=== PATIENT | male | born 1950 | race Caucasian/White ===

== ENCOUNTER → 2020-08-23 | Outpatient (CLI) | payer MEDICARE, OTHER ==
--- NOTE | 2020-09-27 17:58 | EM ---
EVENT MONITOR DATE OF SERVICE: The patient was monitored between the 23 of August and the September,. The rhythm strip revealed sinus mechanism with normal conduction. Single PVCs and PACs were noted. No atrial fibrillation was noted. There was a 5 complex ventricular tachycardia noted on August 26 that was asymptomatic. CONCLUSION: No atrial fibrillation was noted. MMODL / IJN: [id number] /
== END | disposition home or self-care (01) ==
LOC: RADECHMAIN 12:06
PROVIDERS: ATTEND Internal Medicine
DX: I49.1 Atrial premature depolarization (principal); I49.3 Ventricular premature depolarization; I47.2 Ventricular tachycardia
CPT/HCPCS: 93270

== ENCOUNTER → 2021-08-21 | Outpatient (CLI) | payer MEDICARE, OTHER ==
[2021-08-21 10:53] LABS: African American GFR (CKD) >90 (>60 ml/min/1.73 sqM); Blood Urea Nitrogen 18 mg/dL (9-20); Non-African American GFR(CKD) >90 (>60 ml/min/1.73 sqM)
--- NOTE | 2021-08-21 19:15 | CT ---
EXAMINATION TYPE: CT urogram wo/w con DATE OF EXAM: 08/21/2021 INDICATION: Gross hematuria. CT DLP: 4288 mGy.cm Automated Exposure Control for Dose Reduction was Utilized. TECHNIQUE AND CONTRAST: CT scan of the abdomen and pelvis is performed without and with IV Contrast, as per CT urogram protoc ol. The patient injected with 100ml mL of Isovue 300. 3-D reconstruction images were generated on an independent workstation and reviewed. COMPARISON: None available FINDINGS: Few left renal nonobstructing calculi measuring up to 4 mm at the lower pole. No other definite radio dense urinary calculi. No hydroureter or hydronephrosis. Millimetric cyst is seen at the midpole of t he left kidney, otherwise unremarkable kidneys. No definite filling defect seen within the renal alexia ecting system or the opacified portion of the ureters. Mild nonspecific wall thickening of the midportion of the left ureter. No gross ureteric lesion other asif. Prostatic concretion. Slightly heterogeneous prostate, please correlate with PSA level. Unremar kable seminal vesicles. Mild wall thickening of the urinary bladder, nonspecific. No gross urinary bl adder lesion. Unremarkable liver, gallbladder, spleen, pancreas and adrenals. Extensive arterial atherosclerotic ca lcifications with infrarenal abdominal aortic ectasia measuring up to 2.9 cm. Previously right aortoi liac stent, suboptimally assessed by this CT scan. Unremarkable nondistended stomach, duodenum and sm all bowel. No gross colonic mass. No suspicious lymphadenopathy or sizable ascites. Fat-containing umbilical hernia. Left atrial dilata tion. Coronary arterial atherosclerotic calcifications. Grossly unremarkable lung bases. Bilateral L5 pars break with grade 1 anterolisthesis of L5 over S1. Marked degenerative changes of the lower lumb ar spine. No gross aggressive bone lesion. IMPRESSION: Few left nonobstructing renal calculi. No gross renal, ureteric or urinary bladder lesion. Subtle uri nary tract findings and other incidental findings as described above.
== END | disposition home or self-care (01) ==
LOC: RADCTMAIN 10:08
PROVIDERS: ATTEND Internal Medicine
DX: N20.0 Calculus of kidney (principal)
CPT/HCPCS: 82565; 84520; 74178; 36415; 74400; Q9967

== ENCOUNTER → 2021-12-08 | Outpatient (CLI) | payer MEDICARE, OTHER ==
--- NOTE | 2021-12-09 04:08 | MR ---
EXAMINATION TYPE: MR lumbar spine wo/w con DATE OF EXAM: 12/08/2021 COMPARISON: None HISTORY: Lower back pain, radiates into both hips and right leg. CONTRAST: Standard multiplanar, multisequence MRI departmental protocol images were obtained without contrast a nd with 9 mL intravenous Gadavist gadolinium contrast. There is a first-degree L5-S1 spondylolisthesis. There is degenerative disc space narrowing throughou t the lumbar spine and more severe at L4-5 and L5-S1. There is small posterior disc herniation at L2- 3. The lumbar nerve roots appear intact. There is bilateral neural foraminal narrowing at L3-4 L4-5 d ue to facet arthropathy and disc space narrowing. There are similar changes also at L5-S1. There is n o lumbar paraspinal mass. No compression fracture. No focal bone destruction. No pathologic enhanceme nt. IMPRESSION: First-degree L5-S1 spondylolisthesis. Multilevel spondylotic changes. Multilevel neural foraminal fabio rowing. No significant spinal stenosis.
== END | disposition home or self-care (01) ==
LOC: RADMRIMAIN 21:45
PROVIDERS: ATTEND Physical Medicine & Rehabilitation
DX: M43.17 Spondylolisthesis, lumbosacral region (principal); M48.061 Spinal stenosis, lumbar region without neurogenic claudication; M47.26 Other spondylosis with radiculopathy, lumbar region
CPT/HCPCS: 72158; A9585

== ENCOUNTER → 2022-08-27 | Outpatient (CLI) | payer MEDICARE, OTHER ==
[2022-08-27 15:06] LABS: African American GFR (CKD) >90 (>60 ml/min/1.73 sqM); Blood Urea Nitrogen 16 mg/dL (9-20); Non-African American GFR(CKD) >90 (>60 ml/min/1.73 sqM)
--- NOTE | 2022-08-28 13:32 | CT ---
EXAMINATION TYPE: CT abdomen pelvis w con CT DLP: 1170.50 mGycm, Automated exposure control for dose reduction was used. DATE OF EXAM: 08/27/2022 4:29 PM COMPARISON: 08/21/2021, MRI 12/08/2021 CLINICAL INDICATION:Male, 71 years old with history of R10.12; mid to upper abdominal pain TECHNIQUE: Axial CT of the abdomen and pelvis. Sagittal and coronal reformats were created on a [employer] workstation. Contrast used:100 mL of Isovue 300 with IV Contrast, Oral contrast used: with Oral Contrast FINDINGS: LOWER CHEST: Unremarkable ABDOMEN LIVER: Unremarkable GALLBLADDER AND BILE DUCTS: Unremarkable. PANCREAS: Unremarkable. SPLEEN: Unremarkable. ADRENAL GLANDS: Unremarkable. KIDNEYS AND URETERS: No obstructive uropathy. Nonobstructing left renal calculi measuring up to 5 mm. No right renal calculi visualized. PELVIS BLADDER: Unremarkable REPRODUCTIVE: Unremarkable. ABDOMEN & PELVIS STOMACH AND BOWEL: No evidence of bowel obstruction. Large amount stool within the right colon. PERITONEUM/RETROPERITONEUM: No evidence of pneumoperitoneum or free fluid. VASCULATURE: No evidence of aortic aneurysm. Scattered atherosclerosis of the arterial vasculature. R ight external iliac stent which is patent. MUSCULOSKELETAL: No acute osseous abnormalities, multilevel disc degeneration changes of the spine wi th grade 2 anterolisthesis of L5 on S1. There is at least moderate to severe neural foraminal stenosi s at L4-L5 and L5-S1 secondary to facet joint uncovertebral joint arthropathy. LYMPH NODES: No gross evidence for lymphadenopathy. SOFT TISSUE/ABDOMINAL WALL: Left fat-containing inguinal hernia. Fat-containing umbilical hernia. A l arge stool burden within the right colon. IMPRESSION: 1. No evidence for acute abdominal process to explain the patient's pain. There is a large stool bur den within the upper abdomen right colon correlate for fecal stasis. No evidence for pancreatitis or obstructive uropathy. 2. Nonobstructing left renal calculi. 3. The right external iliac stent graft. 4. Moderate to severe bilateral L4-L5 and L5-S1 neural foraminal stenosis secondary to degeneration changes. Stable from at least 08/21/2021. 5. Grade 2 anterolisthesis of L5 on S1. Stable from at least 08/21/2021.
== END | disposition home or self-care (01) ==
LOC: RADCTMAIN 14:24
PROVIDERS: ATTEND Internal Medicine
DX: N20.0 Calculus of kidney (principal); M43.17 Spondylolisthesis, lumbosacral region; M99.73 Connective tissue and disc stenosis of intervertebral foramina of lumbar region; M47.816 Spondylosis without myelopathy or radiculopathy, lumbar region; R10.12 Left upper quadrant pain; Z95.828 Presence of other vascular implants and grafts
CPT/HCPCS: 82565; 84520; 74177; 36415; Q9967

== ENCOUNTER 2022-10-26 11:18 | Day surgery (SDC) | payer MEDICARE, OTHER ==
[2022-10-24 11:50] VITALS: BMI 27.8
[2022-10-26 11:46] VITALS: RESP 16; TEMP 97.6
[2022-10-26] MEDS ORDERED: LACTATED RINGERS 1,000 ML IV ONE (11:51)
[2022-10-26] MEDS ORDERED: PROPOFOL 10 MG/ML 20 ML VIAL IV ONE (12:04)
--- NOTE | 2022-10-26 13:23 | P.PCN ---
Date of Procedure: 10/26/22 Procedure(s) Performed: BRIEF HISTORY: Patient is a 71-year-old pleasant white male scheduled for an elective colonoscopy as a part of screening for colon cancer. PROCEDURE PERFORMED: Colonoscopy with snare polypectomy. PREOPERATIVE DIAGNOSIS: Screening for colon cancer. IV sedation per Anesthesia. PROCEDURE: After informed consent was obtained, the patient, was brought into the endoscopy unit. IV sedation was administered by Anesthesia under continuous monitoring. Digital rectal examination was normal. Initially the Olympus CF-160 flexible video colonoscope was then inserted in the rectum, gradually advanced into the cecum without any difficulty. Careful examination was performed as the scope was gradually being withdrawn. Ileocecal valve and the appendiceal orifice were visualized and appeared normal. Prep was excellent. Mucosa of the cecum, ascending colon, transverse colon, descending colon, sigmoid colon, and rectum appeared normal. The proximal rectum there was a 5 limited polyp that was removed by snare polypectomy. Scattered sigmoid diverticulosis. Retroflexion was performed in the rectum and no lesions were seen. The patient tolerated the procedure well. IMPRESSION: 5 mm proximal rectal polyp status post polypectomy Scattered sigmoid diverticulosis RECOMMENDATIONS: Findings of this examination were discussed with the patient as well as his family.. He was advised to follow with the biopsy results. If the biopsy results adenoma he can have a repeat colonoscopy in 5 years.
[2022-10-26 13:32] VITALS: PULSE 41
[2022-10-26 13:46] VITALS: BP 148/58
== END 2022-10-26 14:04 | disposition home or self-care (01) ==
LOC: ORWHC2ENDO 11:18
PROVIDERS: ATTEND Internal Medicine Gastroenterology
DX: Z12.11 Encounter for screening for malignant neoplasm of colon (principal); D12.8 Benign neoplasm of rectum; K57.30 Diverticulosis of large intestine without perforation or abscess without bleeding; I25.10 Atherosclerotic heart disease of native coronary artery without angina pectoris; I48.91 Unspecified atrial fibrillation; I10 Essential (primary) hypertension; E78.5 Hyperlipidemia, unspecified; E03.9 Hypothyroidism, unspecified; N42.9 Disorder of prostate, unspecified; Z90.49 Acquired absence of other specified parts of digestive tract; Z79.01 Long term (current) use of anticoagulants; Z79.890 Hormone replacement therapy; Z79.899 Other long term (current) drug therapy; Z88.1 Allergy status to other antibiotic agents
CPT/HCPCS: 88305; 45385; J2704

== ENCOUNTER 2022-11-05 08:19 | Observation (INO) | payer MEDICARE, OTHER ==
[2022-11-05] MEDS ORDERED: ASPIRIN 81 MG PO STA (08:30)
[2022-11-05] MEDS ORDERED: NITROGLYCERIN SL TABS 0.4 MG TAB SUBLINGUAL STA (08:30)
--- NOTE | 2022-11-05 08:33 | ED ---
General Adult HPI - General Chief complaint: Chest Pain Stated complaint: chest pain Time Seen by Provider: 11/05/22 08:20 Source: patient Mode of arrival: ambulatory - History of Present Illness Initial comments: Dictation was produced using [employer] dictation software. please excuse any grammatical, word or spelling errors. Chief Complaint: 71-year-old male presents emergency department with chest pressure History of Present Illness: 71-year-old male presents to the emergency room with couple hours of chest pressure. He felt fine last night before he went to bed. Woke this morning had some pressure in his chest. Nonradiating. Not associated with nausea or diaphoresis. Patient has a history of bypass grafting. He has extensive family history of coronary artery disease. Patient has a history of hypertension and dyslipidemia. Denies any history of diabetes. He does have a history of fibrillation and is currently on anticoagulation medications. The ROS documented in this emergency department record has been reviewed and confirmed by me. Those systems with pertinent positive or negative responses have been documented in the HPI. All other systems are other negative and/or noncontributory. - Related Data Home Medications Medication Instructions Recorded Confirmed Acetaminophen [Tylenol Extra 500 mg PO HS 10/24/22 11/05/22 Strength] Ascorbic Acid [Vitamin C] 1,000 mg PO DAILY 10/24/22 11/05/22 Atorvastatin [Lipitor] 80 mg PO HS 10/24/22 11/05/22 Glucosamine Sulfate 1,000 mg PO HS 10/24/22 11/05/22 Levothyroxine Sodium [Synthroid] 200 mcg PO MOTUWETHFRSA 10/24/22 11/05/22 Multivit,Calc,Min/FA/K1/Lycop 1 tab PO HS 10/24/22 11/05/22 [One-A-Day Men's Complete Tab] Rivaroxaban [Xarelto] 20 mg PO HS 10/24/22 11/05/22 Tamsulosin [Flomax] 0.4 mg PO DAILY 10/24/22 11/05/22 amLODIPine [Norvasc] 10 mg PO HS 10/24/22 11/05/22 ramipriL 10 mg PO DAILY 10/24/22 11/05/22 Allergies Allergy/AdvReac Type Severity Reaction Status Date / Time ciprofloxacin [From Cipro] Allergy TROUBLE Verified 07/24/23 09:22 SWALLOWING Review of Systems ROS Statement: Those systems with pertinent positive or pertinent negative responses have been documented in the HPI. ROS Other: All systems not noted in ROS Statement are negative. Past Medical History Past Medical History: Atrial Fibrillation, Cancer, Hyperlipidemia, Hypertension, Prostate Disorder, Thyroid Disorder Additional Past Medical History / Comment(s): MELANOMA ON BACK History of Any Multi-Drug Resistant Organisms: None Reported Past Surgical History: Appendectomy, Coronary Bypass/CABG, Hernia Repair, Orthopedic Surgery, Tonsillectomy Additional Past Surgical History / Comment(s): QUAD BYPASS-2010 ,COLONOSCOPY X 3 ,MELANOMA REMOVED FROM BACK. ORIF RT WRIST ,TITANIUM PLATE LT SHOULDER. NUMEROUS HERNIA REPAIRS ,DALIA Past Anesthesia/Blood Transfusion Reactions: No Reported Reaction Past Psychological History: No Psychological Hx Reported Smoking Status: Former smoker Past Alcohol Use History: None Reported Past Drug Use History: None Reported - Past Family History Mother Family Medical History: No Reported History General Exam - General Exam Comments Initial Comments: PHYSICAL EXAM: General Impression: Alert and oriented x3, not in acute distress HEENT: Normocephalic atraumatic, extra-ocular movements intact, pupils equal and reactive to light bilaterally, mucous membranes moist. Cardiovascular: Heart regular rate and rhythm Chest: Able to complete full sentences, no retractions, no tachypnea Abdomen: abdomen soft, non-tender, non-distended, no organomegaly Musculoskeletal: Pulses present and equal in all extremities, no peripheral edema Motor: no focal deficits noted Neurological: CN II-XII grossly intact, no focal motor or sensory deficits noted Skin: Intact with no visualized rashes Psych: Normal affect and mood Course Vital Signs 11/05/22 08:20 Temperature 99.2 F Pulse Rate 65 Respiratory 18 Rate Blood Pressure 171/72 O2 Sat by Pulse 95 Oximetry EKG Findings - EKG Comments: EKG Findings:: My EKG interpretation: Ventricular rate 55, sinus bradycardia,. Interval to 11, QRS 104, QTC 400. No MA prolongation, no QTC prolongation, no ST or T-wave changes noted. Overall, this EKG is unremarkable Medical Decision Making - Medical Decision Making Was pt. sent in by a medical professional or institution (, PA, BANK VAULT ATTENDANT, urgent care, hospital, or long term...) When possible be specific @ -No Did you speak to anyone other than the patient for history (EMS, parent, family, police, friend...)? What history was obtained from this source @ -No Did you review nursing and triage notes (agree or disagree)? Why? @ -I reviewed and agree with nursing and triage notes Were old charts reviewed (outside hosp., previous admission, EMS record, old E KG, old radiological studies, urgent care reports/EKG's, long term records)? Report findings @ -No old charts were reviewed Differential Diagnosis (chest pain, altered mental status, abdominal pain women, abdominal pain men, vaginal bleeding, musculoskeletal, weakness, fever, dyspnea, syncope, headache, dizziness, GI bleed, back pain, seizure, CVA, palpatations, mental health)? @ -FDifferential Chest Pain: Stable Angina, Unstable Angina, STEMI, NSTEMI Aortic Dissection, Pneumothorax, Musculoskeletal, Esophageal Spasm GERD, Cholecystitis, Pancreatitis, Zoster, this is not meant to be an all-inclusive list. EKG interpreted by me (3pts min.). @ -As above X-rays interpreted by me (1pt min.). @ -Chest x-ray is unremarkable CT interpreted by me (1pt min.). @ -None done U/S interpreted by me (1pt. min.). @ -None done What testing was considered but not performed or refused? (CT, X-rays, U/S, labs)? Why? @ -None What meds were considered but not given or refused? Why? @ -None Did you discuss the management of the patient with other professionals (professionals i.e. , PA, BANK VAULT ATTENDANT, lab, RT, psych nurse, director of social services, final inspector balance wheel, teacher, air control/anti air warfare officer, case fitter)? Give summary @ -No Was smoking cessation discussed for >3mins.? @ -No Was critical care preformed (if so, how long)? @ -No Were there social determinants of health that impacted care today? How? (Homelessness, low income, unemployed, alcoholism, drug addiction, transportation, low edu. Level, literacy, decrease access to med. care, [facility], rehab)? @ -No Was there de-escalation of care discussed even if they declined (Discuss DNR or withdrawal of care, Hospice)? DNR status @ -No What co-morbidities impacted this encounter? (DM, HTN, Smoking, COPD, CAD, Cancer, CVA, ARF, Chemo, Hep., AIDS, mental health diagnosis, sleep apnea, morbid obesity)? @ -None Was patient admitted / discharged? Hospital course, mention meds given and route, prescriptions, significant lab abnormalities, going to OR and other pertinent info. @ -71-year-old male presents emergency department for atypical chest pain typical features. He is high risk due to his comorbidities and history of cardiac issues. Vital signs stable. EKG is unremarkable. Labs are unremarkabl e. Chest x-ray is negative. Patient needed observation for cardiac monitoring. Undiagnosed new problem with uncertain prognosis? @ -No Drug Therapy requiring intensive monitoring for toxicity (Heparin, Nitro, Insulin, Cardizem)? @ -No Were any procedures done? @ -No Diagnosis/symptom? Acute, or Chronic, or Acute on Chronic? Uncomplicated (without systemic symptoms) or Complicated (systemic symptoms)? @ 1. Chest pain Side effects of treatment? @ - No Exacerbation, Progression, or Severe Exacerbation? @ -No Poses a threat to life or bodily function? How? (Chest pain, USA, MS, pneumonia, PE, COPD, DKA, ARF, appy, cholecystitis, CVA, Diverticulitis, Homicidal, Suicidal, threat to staff... and all critical care pts) @ -yes - Lab Data Result diagrams: 11/05/22 09:03 11/05/22 09:03 Lab Results 11/05/22 11/05/22 11/05/22 Range/Units 09:03 09:03 09:03 WBC 8.6 (3.8-10.6) k/uL RBC 4.70 (4.30-5.90) m/uL Hgb 14.8 (13.0-17.5) gm/dL Hct 41.8 (39.0-53.0) % MCV 88.9 (80.0-100.0) fL MCH 31.4 (25.0-35.0) pg MCHC 35.4 (31.0-37.0) g/dL RDW 12.7 (11.5-15.5) % Plt Count 208 (150-450) k/uL MPV 7.7 Neutrophils % 74 % Lymphocytes % 16 % Monocytes % 6 % Eosinophils % 2 % Basophils % 0 % Neutrophils # 6.4 (1.3-7.7) k/uL Lymphocytes # 1.4 (1.0-4.8) k/uL Monocytes # 0.5 (0-1.0) k/uL Eosinophils # 0.1 (0-0.7) k/uL Basophils # 0.0 (0-0.2) k/uL PT 13.1 H (9.0-12.0) sec INR 1.3 H (<1.2) APTT 35.7 H (22.0-30.0) sec Sodium 137 (137-145) mmol/L Potassium 3.9 (3.5-5.1) mmol/L Chloride 105 (98-107) mmol/L Carbon Dioxide 24 (22-30) mmol/L Anion Gap 8 mmol/L BUN 16 (9-20) mg/dL Creatinine 0.63 L (0.66-1.25) mg/dL Est GFR (CKD-EPI)AfAm >90 (>60 ml/min/1.73 sqM) Est GFR (CKD-EPI)NonAf >90 (>60 ml/min/1.73 sqM) Glucose 99 (74-99) mg/dL Calcium 9.1 (8.4-10.2) mg/dL Magnesium 2.0 (1.6-2.3) mg/dL Total Bilirubin 1.1 (0.2-1.3) mg/dL AST 29 (17-59) U/L ALT 21 (4-49) U/L Alkaline Phosphatase 113 (38-126) U/L Troponin I (0.000-0.034) ng/mL Total Protein 6.8 (6.3-8.2) g/dL Albumin 3.8 (3.5-5.0) g/dL 11/05/22 Range/Units 09:03 WBC (3.8-10.6) k/uL RBC (4.30-5.90) m/uL Hgb (13.0-17.5) gm/dL Hct (39.0-53.0) % MCV (80.0-100.0) fL MCH (25.0-35.0) pg MCHC (31.0-37.0) g/dL RDW (11.5-15.5) % Plt Count (150-450) k/uL MPV Neutrophils % % Lymphocytes % % Monocytes % % Eosinophils % % Basophils % % Neutrophils # (1.3-7.7) k/uL Lymphocytes # (1.0-4.8) k/uL Monocytes # (0-1.0) k/uL Eosinophils # (0-0.7) k/uL Basophils # (0-0.2) k/uL PT (9.0-12.0) sec INR (<1.2) APTT (22.0-30.0) sec Sodium (137-145) mmol/L Potassium (3.5-5.1) mmol/L Chloride (98-107) mmol/L Carbon Dioxide (22-30) mmol/L Anion Gap mmol/L BUN (9-20) mg/dL Creatinine (0.66-1.25) mg/dL Est GFR (CKD-EPI)AfAm (>60 ml/min/1.73 sqM) Est GFR (CKD-EPI)NonAf (>60 ml/min/1.73 sqM) Glucose (74-99) mg/dL Calcium (8.4-10.2) mg/dL Magnesium (1.6-2.3) mg/dL Total Bilirubin (0.2-1.3) mg/dL AST (17-59) U/L ALT (4-49) U/L Alkaline Phosphatase (38-126) U/L Troponin I <0.012 (0.000-0.034) ng/mL Total Protein (6.3-8.2) g/dL Albumin (3.5-5.0) g/dL Disposition Clinical Impression: Chest pain Disposition: ADMITTED IP TO THIS HOSP Condition: Fair Referrals: Buddy Salas MD [Primary Care Provider] - 1-2 days Time of Disposition: 09:57
--- NOTE | 2022-11-05 09:10 | XR ---
EXAMINATION TYPE: XR chest 2V DATE OF EXAM: 11/05/2022 9:04 AM COMPARISON: None TECHNIQUE: XR chest 2V Frontal and lateral views of the chest. CLINICAL INDICATION:Male, 71 years old with history of Chest Pain; FINDINGS: Lungs/Pleura: There is flattening of the diaphragm with increased lucency of the lungs. No evidence o f pneumothorax, pleural effusion or focal consolidation. Pulmonary vascularity: Unremarkable. Heart/mediastinum: Cardiomediastinal silhouette is unremarkable. Musculoskeletal: Multiple level degenerative disc disease changes seen throughout the spine. Midline sternotomy wires are noted. Left shoulder prosthesis. No acute osseous abnormality. Other findings: Right axillary surgical clips. IMPRESSION: 1. No acute cardiopulmonary disease process. 2. COPD changes.
[2022-11-05 09:12] LABS: Basophils % (A) 0 %; Eosinophils # (A) 0.1 k/uL (0-0.7); Eosinophils % (A) 2 %; HCT 41.8 % (39.0-53.0); HGB 14.8 gm/dL (13.0-17.5); Lymphocytes # (A) 1.4 k/uL (1.0-4.8); Lymphocytes % (A) 16 %; MCH 31.4 pg (25.0-35.0); MCHC 35.4 g/dL (31.0-37.0); MCV 88.9 fL (80.0-100.0); Mean Platelet Volume 7.7; Monocytes # (A) 0.5 k/uL (0-1.0); Monocytes % (A) 6 %; Neutrophils # (A) 6.4 k/uL (1.3-7.7); Neutrophils % (A) 74 %; Platelet Count 208 k/uL (150-450); RDW 12.7 % (11.5-15.5); WBC 8.6 k/uL (3.8-10.6)
[2022-11-05 09:21] LABS: INR 1.3 (<1.2); Partial Thromboplastin Time 35.7 sec (22.0-30.0); Prothrombin Time 13.1 sec (9.0-12.0)
[2022-11-05 09:30] LABS: ALT 21 U/L (4-49); AST 29 U/L (17-59); African American GFR (CKD) >90 (>60 ml/min/1.73 sqM); Albumin 3.8 g/dL (3.5-5.0); Alkaline Phosphatase 113 U/L (38-126); Anion Gap 8 mmol/L; Blood Urea Nitrogen 16 mg/dL (9-20); Calcium 9.1 mg/dL (8.4-10.2); Carbon Dioxide 24 mmol/L (22-30); Chloride 105 mmol/L (98-107); Glucose 99 mg/dL (74-99); Non-African American GFR(CKD) >90 (>60 ml/min/1.73 sqM); Potassium 3.9 mmol/L (3.5-5.1); Sodium 137 mmol/L (137-145); Total Bilirubin 1.1 mg/dL (0.2-1.3); Total Protein 6.8 g/dL (6.3-8.2)
[2022-11-05] MEDS ORDERED: NITROGLYCERIN SL TABS 0.4 MG TAB SUBLINGUAL PRN (09:54)
[2022-11-05] MEDS: LEVOTHYROXINE 100 MCG TAB PO SCH (11:08)
--- NOTE | 2022-11-05 12:20 | P.CRDCN ---
History of Present Illness Consult date: 11/05/22 Consult reason: chest pain History of present illness: History of present illness: This is a 71-year-old male patient of Dr. Florencio Elizabeth with past medical history of coronary artery bypass graft 4 vessel done at [facility] in 2008 with MAGAÑA to LAD and diagonal, saphenous vein graft to PDA, saphenous vein graft to the obtuse marginal branch, paroxysmal atrial fibrillation on Xarelto, aortic valve stenosis, hypertension, dyslipidemia, moderate bilateral carotid stenosis, peripheral artery disease status post right iliac stenting, melanoma resected on his back. We have been asked to evaluate the patient for chest pain. Patient gives history that he started having midsternal chest pain while he was sleeping. He got up to go to the bathroom and this was when he noticed the chest discomfort. When he went to bed the evening before, he did not have any chest pain or discomfort. He states that he started lifting weights a couple weeks ago. Pain is worse with a deep breath but no change with any movement. He denies having any shortness of breath, no palpitations, no lightheadedness or dizziness, no lower extremity edema. He is normally very active and plays pickle ball with most recent pickle ball on Saturday. He did not express any chest discomfort at that time. He states he also obtains 20,000 steps per day. He quit smoking about 20 years ago. He last had a cardiac catheterization in 2010 or 2011 at [facility]. Patient is seen in the emergency center waiting for a bed on the observation unit. EKG sinus rhythm with no acute findings Chest x-ray: No acute process CBC within normal limits, INR 1.3. Elective lites normal. Creatinine 0.63. Magnesium 2.0. Liver function tests are normal. Troponin negative 1. Home cardiac medications: Amlodipine 10 mg at bedtime, atorvastatin 80 mg at bedtime, levothyroxine 200 g Saturday through Saturday, July 10 milligrams daily, Xarelto 20 mg at bedtime DALIA performed 04/2021 performed at [facility] in [facility] revealed normal LV systolic function, no evidence of left atrial appendage thrombus, no PFO, ASD or in chair atrial septal aneurysm. No pericardial effusion. Mild to moderate aortic regurgitation, trivial mitral regurgitation. Carotid ultrasound 03/06 performed in the office revealed 5079 percent stenosis bilaterally. Echocardiogram performed 02/20/2022 in the office revealed normal LV size, EF 65%, mild concentric left ventricular hypertrophy. Trileaflet aortic valve with moderate to severe aortic regurgitation and mild aortic stenosis. Mild mitral regurgitation, moderate tricuspid regurgitation, pulmonary artery systolic pressure 37 mmHg. Nuclear stress test 03/2021 completed in the office revealed above average exercise tolerance, negative stress test by EKG criteria, normal myocardial perfusion and function Review Of Systems: At the time of my evaluation: Constitutional: No fever, no chills. No weakness, fatigue or lethargy. EENT: No headache. No dizziness. Lungs: No shortness of breath, cough, no sputum production. No wheezing. Cardiovascular: No chest pain, no lower extremity edema. No palpitations. No paroxysmal nocturnal dyspnea. No orthopnea. No lightheadedness or dizziness. No syncopal episodes. Abdominal: No abdominal pain. No nausea, vomiting. No diarrhea. No constipation. No bloody or tarry stools. Musculoskeletal: No myalgias. No muscle weakness, no frequent falls. Integumentary: No wounds. No rash. No unusual bruising. Neurologic: No aphasia. No facial droop. No change in mentation. Physical examination: Gen: This is a 71-year-old male. He is resting on ER stretcher and appears to be comfortable and in no acute distress. VS: reviewed HEENT: Head is atraumatic, normocephalic. Pupils equal, round. Sclerae is anicteric. NECK: Supple. No JVD. . LUNGS: Clear to auscultation. No wheezes or rhonchi. No intercostal retractions. HEART: Regular rate and rhythm. Murmur right sternal border. ABDOMEN: Soft No tenderness. EXTREMITIES: No pedal edema. No calf tenderness. NEUROLOGICAL: Patient is awake, alert and oriented x3. Assessment: Chest pain most likely noncardiac History of coronary artery disease with previous four-vessel CABG Paroxysmal atrial fibrillation Aortic valve stenosis Hypertension Hyperlipidemia Moderate carotid stenosis Peripheral artery disease status post right iliac stenting Remote history of tobacco use Plan: Obtain repeat troponins Resume patient's home cardiac medications Obtain 2-D echocardiogram and Doppler study to assess cardiac structure and function If repeat troponins are within normal limits, patient will be scheduled for Cardiolite stress test tomorrow. Further recommendations to follow based upon clinical course. Thank you kindly for this consultation. Nurse practitioner note has been reviewed, I agree with documented findings and plan of care. Patient was seen and examined. Past Medical History Past Medical History: Atrial Fibrillation, Cancer, Hyperlipidemia, Hypertension, Prostate Disorder, Thyroid Disorder Additional Past Medical History / Comment(s): MELANOMA ON BACK History of Any Multi-Drug Resistant Organisms: None Reported Past Surgical History: Appendectomy, Coronary Bypass/CABG, Hernia Repair, Orthopedic Surgery, Tonsillectomy Additional Past Surgical History / Comment(s): QUAD BYPASS-2010 ,COLONOSCOPY X 3 ,MELANOMA REMOVED FROM BACK. ORIF RT WRIST ,TITANIUM PLATE LT SHOULDER. NUMEROUS HERNIA REPAIRS ,DALIA Past Anesthesia/Blood Transfusion Reactions: No Reported Reaction Past Psychological History: No Psychological Hx Reported Smoking Status: Former smoker Past Alcohol Use History: None Reported Past Drug Use History: None Reported - Past Family History Mother Family Medical History: No Reported History Medications and Allergies Home Medications Medication Instructions Recorded Confirmed Type Acetaminophen [Tylenol Extra 500 mg PO HS 10/24/22 11/05/22 History Strength] Ascorbic Acid [Vitamin C] 1,000 mg PO DAILY 10/24/22 11/05/22 History Atorvastatin [Lipitor] 80 mg PO HS 10/24/22 11/05/22 History Glucosamine Sulfate 1,000 mg PO HS 10/24/22 11/05/22 History Levothyroxine Sodium [Synthroid] 200 mcg PO MOTUWETHFRSA 10/24/22 11/05/22 History Multivit,Calc,Min/FA/K1/Lycop 1 tab PO HS 10/24/22 11/05/22 History [One-A-Day Men's Complete Tab] Rivaroxaban [Xarelto] 20 mg PO HS 10/24/22 11/05/22 History Tamsulosin [Flomax] 0.4 mg PO DAILY 10/24/22 11/05/22 History amLODIPine [Norvasc] 10 mg PO HS 10/24/22 11/05/22 History ramipriL 10 mg PO DAILY 10/24/22 11/05/22 History Allergies Allergy/AdvReac Type Severity Reaction Status Date / Time ciprofloxacin [From Cipro] Allergy TROUBLE Verified 11/05/22 09:22 SWALLOWING Physical Exam Vitals: Vital Signs Temp Pulse Resp BP Pulse Ox 11/05/22 08:20 99.2 F 65 18 171/72 95 Intake and Output 11/04/22 11/05/22 11/05/22 22:59 06:59 14:59 Other: Weight 89.358 kg Results 11/05/22 09:03 11/05/22 09:03 Cardiac Enzymes 11/05/22 11/05/22 Range/Units 09:03 09:03 AST 29 (17-59) U/L Troponin I <0.012 (0.000-0.034) ng/mL Coagulation 11/05/22 Range/Units 09:03 PT 13.1 H (9.0-12.0) sec APTT 35.7 H (22.0-30.0) sec CBC 11/05/22 Range/Units 09:03 WBC 8.6 (3.8-10.6) k/uL RBC 4.70 (4.30-5.90) m/uL Hgb 14.8 (13.0-17.5) gm/dL Hct 41.8 (39.0-53.0) % Plt Count 208 (150-450) k/uL Comprehensive Metabolic Panel 11/05/22 Range/Units 09:03 Sodium 137 (137-145) mmol/L Potassium 3.9 (3.5-5.1) mmol/L Chloride 105 (98-107) mmol/L Carbon Dioxide 24 (22-30) mmol/L BUN 16 (9-20) mg/dL Creatinine 0.63 L (0.66-1.25) mg/dL Glucose 99 (74-99) mg/dL Calcium 9.1 (8.4-10.2) mg/dL AST 29 (17-59) U/L ALT 21 (4-49) U/L Alkaline Phosphatase 113 (38-126) U/L Total Protein 6.8 (6.3-8.2) g/dL Albumin 3.8 (3.5-5.0) g/dL Current Medications Generic Name Dose Route Start Last Admin Trade Name Freq PRN Reason Stop Dose Admin Amlodipine Besylate 10 mg 11/05/22 21:00 Amlodipine 10 Mg Tab PO HS PIERCE Aspirin 325 mg 11/06/22 09:00 Aspirin 325 Mg Tab PO DAILY PIERCE Atorvastatin Calcium 80 mg 11/05/22 21:00 Atorvastatin 80 Mg Tab PO HS PIERCE Nitroglycerin 0.4 mg 11/05/22 09:54 Nitroglycerin Sl Tabs 0.4 Mg Tab SUBLINGUAL Q5M PRN Chest Pain Non-Formulary Medication 200 mcg 11/05/22 10:15 Levothyroxine Sodium [Synthroid] PO MOTUWETHFRSA [facility] Non-Formulary Medication 10 mg 11/06/22 09:00 Ramipril [Ramipril] PO DAILY [facility] Rivaroxaban 20 mg 11/05/22 21:00 Rivaroxaban 20 Mg Tab PO [facility] Protocol Tamsulosin HCl 0.4 mg 11/06/22 09:00 Tamsulosin 0.4 Mg Cap.Er.24h PO DAILY [facility] Intake and Output 11/04/22 11/05/22 11/05/22 22:59 06:59 14:59 Other: Weight 89.358 kg Patient Weight 11/06/22 06:59 Weight 89.358 kg 11/05/22 09:03 11/05/22 09:03
--- NOTE | 2022-11-05 12:35 | P.HPIM ---
History of Present Illness H&P Date: 11/05/22 HISTORY OF PRESENT ILLNESS This is a 71-year-old male patient of Dr. Florencio Elizabeth with past medical history of coronary artery bypass graft 4 vessel done at [facility] in 2008 with MAGAÑA to LAD and diagonal, saphenous vein graft to PDA, saphenous vein graft to the obtuse marginal branch, paroxysmal atrial fibrillation on Xarelto, aortic valve stenosis, hypertension, dyslipidemia, moderate bilateral carotid stenosis, peripheral artery disease status post right iliac stenting, hypothyroidism, benign prostatic hypertrophy, melanoma resected from his back. Patient gives h istory that he started having midsternal chest pain while he was sleeping. He got up to go to the bathroom and this was when he noticed the chest discomfort. When he went to bed the evening before, he did not have any chest pain or discomfort. He states that he started lifting weights a couple weeks ago. Pain is worse with a deep breath but no change with any movement. He denies having any shortness of breath, no palpitations, no lightheadedness or dizziness, no lower extremity edema. He is normally very active and plays [employer] ball on a regular basis. He played football on Saturday and did not experience any chest discomfort. He states he also obtains 20,000 steps per day. EKG sinus rhythm with no acute findings Chest x-ray: No acute process CBC within normal limits, INR 1.3. Elective lites normal. Creatinine 0.63. Magnesium 2.0. Liver function tests are normal. Troponin negative 1. REVIEW OF SYSTEMS Constitutional: No fever, no chills, no night sweats. No weight change. No weakness, fatigue or lethargy. No daytime sleepiness. EENT: No headache. No blurred vision or double vision, no loss of vision. No loss of Hearing, no ringing in the ears, no dizziness. No nasal drainage or congestion. No epistaxis. No sore throat. Lungs: No shortness of breath, cough, no sputum production. No wheezing. Cardiovascular: Reports midsternal chest pain, no lower extremity edema. No palpitations. No paroxysmal nocturnal dyspnea. No orthopnea. No lightheadedness or dizziness. No syncopal episodes. Abdominal: No abdominal pain. No nausea, vomiting. No diarrhea. No constipation. No bloody or tarry stools. No loss of appetite. Genitourinary: No dysuria, increased frequency, urgency. No urinary retention. Musculoskeletal: No myalgias. No muscle weakness, no gait dysfunction, no frequent falls. No back pain. No neck pain. Integumentary: No wounds, no lesions. No rash or pruritus. No unusual bruising. No change in hair or nails. Neurologic: No aphasia. No facial droop. No change in mentation. No head injury. No headache. No paralysis. No paresthesia. Psychiatric: No depression. No anxiety. No mood swings. Endocrine: No abnormal blood sugars. No weight change. No excessive sweating or thirst. No cold intolerance. MEDICAL HISTORY Coronary artery disease Paroxysmal atrial fibrillation Tereso valve stenosis Hypertension Hyperlipidemia Moderate bilateral carotid stenosis Peripheral artery disease status post iliac stenting Hypothyroidism Benign prostatic hypertrophy History of melanoma status post resection the mid thoracic area SURGICAL HISTORY Coronary artery bypass graft 4 vessel done at [facility] in 2008 with MAGAÑA to LAD and diagonal, saphenous vein graft to PDA, saphenous vein graft to the obtuse marginal branch Right iliac stenting Tonsillectomy Appendectomy Hernia repair DALIA Cardiac catheterization Colonoscopy 3 ORIF of the right wrist Titanium plate in the left shoulder SOCIAL HISTORY Patient has a remote history of tobacco use and quit 20 years ago. No illicit drug use, no alcohol abuse FAMILY HISTORY Father at age 77 from Parkinson's and CHF and CA. Mother at age 94 with dementia. Patient has 2 brothers one has history of CABG 4 in the other has no major medical problems. Patient has 2 sisters one is a heavy smoker and drinker in the other one has no major medical problems. PHYSICAL EXAMINATION Gen: This is a 71-year-old male. He is resting on the ER stretcher and appears to be comfortable and in no acute distress. HEENT: Head is atraumatic, normocephalic. Pupils equal, round. Sclerae is anicteric. NECK: Supple. No JVD. No lymphadenopathy. No thyromegaly. LUNGS: Clear to auscultation. No wheezes or rhonchi. No intercostal retractions . HEART: Regular rate and rhythm. Systolic murmur. ABDOMEN: Soft. Bowel sounds are present. No masses. No tenderness. EXTREMITIES: No pedal edema. No calf tenderness. NEUROLOGICAL: Patient is awake, alert and oriented x3. Cranial nerves 2 through 12 are grossly intact. ASSESSMENT AND PLAN 1. Chest pain, rule out acute coronary syndrome. Repeat troponins, echocardiogram, possible stress Cardiolite tomorrow. Cardiology consult appreciated. Continue patient on aspirin 81 mg daily, atorvastatin 80 mg at bedtime. 2. History of coronary artery disease with 4 vessel CABG and reported normal cardiac cath in . 3. Paroxysmal atrial fibrillation currently in a sinus rhythm. Continue Xarelto 20 mg at bedtime. 4. Hypertension hypertensive cardiovascular disease. Continue ramipril 10 mg daily, amlodipine 10 mg at bedtime. 5. Hypothyroidism. Continue levothyroxine 200 g Saturday through Saturday. 6. Benign prostatic hypertrophy. Continue Flomax or 0.4 mg daily and monitor for urinary retention. 7. Hyperlipidemia. Continue atorvastatin 80 mg at bedtime. 8. Peripheral artery disease status post iliac stent. Patient is observation status DISCHARGE PLAN Return home Impression and plan of care have been directed as dictated by the signing physician. Minoo Bull nurse practitioner acting as scribe for signing physic génesis. Past Medical History Past Medical History: Atrial Fibrillation, Cancer, Hyperlipidemia, Hypertension, Prostate Disorder, Thyroid Disorder Additional Past Medical History / Comment(s): MELANOMA ON BACK History of Any Multi-Drug Resistant Organisms: None Reported Past Surgical History: Appendectomy, Coronary Bypass/CABG, Hernia Repair, Orthopedic Surgery, Tonsillectomy Additional Past Surgical History / Comment(s): QUAD BYPASS-2010 ,COLONOSCOPY X 3 ,MELANOMA REMOVED FROM BACK. ORIF RT WRIST ,TITANIUM PLATE LT SHOULDER. NUMEROUS HERNIA REPAIRS ,DALIA Past Anesthesia/Blood Transfusion Reactions: No Reported Reaction Past Psychological History: No Psychological Hx Reported Smoking Status: Former smoker Past Alcohol Use History: None Reported Past Drug Use History: None Reported - Past Family History Mother Family Medical History: No Reported History Medications and Allergies Home Medications Medication Instructions Recorded Confirmed Type Acetaminophen [Tylenol Extra 500 mg PO HS 10/24/22 11/05/22 History Strength] Ascorbic Acid [Vitamin C] 1,000 mg PO DAILY 10/24/22 11/05/22 History Atorvastatin [Lipitor] 80 mg PO HS 10/24/22 11/05/22 History Glucosamine Sulfate 1,000 mg PO HS 10/24/22 11/05/22 History Levothyroxine Sodium [Synthroid] 200 mcg PO MOTUWETHFRSA 10/24/22 11/05/22 Hi story Multivit,Calc,Min/FA/K1/Lycop 1 tab PO HS 10/24/22 11/05/22 History [One-A-Day Men's Complete Tab] Rivaroxaban [Xarelto] 20 mg PO HS 10/24/22 11/05/22 History Tamsulosin [Flomax] 0.4 mg PO DAILY 10/24/22 11/05/22 History amLODIPine [Norvasc] 10 mg PO HS 10/24/22 11/05/22 History ramipriL 10 mg PO DAILY 10/24/22 11/05/22 History Allergies Allergy/AdvReac Type Severity Reaction Status Date / Time ciprofloxacin [From Cipro] Allergy TROUBLE Verified 11/05/22 09:22 SWALLOWING Physical Exam Vitals: Vital Signs Temp Pulse Resp BP Pulse Ox 11/05/22 08:20 99.2 F 65 18 171/72 95 Intake and Output 11/04/22 11/05/22 11/05/22 22:59 06:59 14:59 Other: Weight 89.358 kg Results CBC & Chem 7: 11/05/22 09:03 11/05/22 09:03 Labs: Abnormal Lab Results - Last 24 Hours (Table) 11/05/22 11/05/22 Range/Units 09:03 09:03 PT 13.1 H (9.0-12.0) sec INR 1.3 H (<1.2) APTT 35.7 H (22.0-30.0) sec Creatinine 0.63 L (0.66-1.25) mg/dL
[2022-11-05] MEDS ORDERED: ACETAMINOPHEN TAB 325 MG TAB PO PRN (14:35)
[2022-11-05] MEDS: ACETAMINOPHEN TAB 325 MG TAB PO PRN (15:23)
[2022-11-05] MEDS ORDERED: ACETAMINOPHEN TAB 500 MG TAB PO SCH (21:00)
[2022-11-05] MEDS ORDERED: RIVAROXABAN 20 MG TAB PO SCH (21:00)
[2022-11-05] MEDS ORDERED: amLODIPine 10 MG TAB PO SCH (21:00)
[2022-11-05] MEDS ORDERED: ATORVASTATIN 80 MG TAB PO SCH (21:00)
[2022-11-06] MEDS: LEVOTHYROXINE 100 MCG TAB PO SCH (05:53)
--- NOTE | 2022-11-06 07:13 | CA ---
Transthoracic Echo Report Name: Fermín Fay Age: 71 Gender: M : 1950 Exam Date: 11/05/2022 13:43 Exam Location: [place] [facility] Ht (in): 71 Wt (lb): 197 Ordering Physician: Minoo Bull Attending/Referring Phys: [id number], [employer] Shruti Gomez [facility] Procedure CPT: Indications: LVF Cardiac Hx: Technical Quality: Fair Contrast 1: Total Dose (mL): Contrast 2: Total Dose (mL): MEASUREMENTS (Male / Female) Normal Values 2D ECHO LV Diastolic Diameter PLAX 4.6 cm 4.2 - 5.9 / 3.9 - 5.3 cm LV Systolic Diameter PLAX 2.9 cm IVS Diastolic Thickness 1.2 cm 0.6 - 1.0 / 0.6 - 0.9 cm LVPW Diastolic Thickness 1.3 cm 0.6 - 1.0 / 0.6 - 0.9 cm LV Relative Wall Thickness 0.5 LVOT Diameter 2.0 cm Ascending Aorta Diameter 3.4 cm M-MODE Aortic Root Diameter MM 3.0 cm LA Systolic Diameter MM 4.3 cm LA Ao Ratio MM 1.4 AV Cusp Separation MM 1.4 cm DOPPLER AV Peak Velocity 329.2 cm/s AV Peak Gradient 43.3 mmHg AV Mean Velocity 217.4 cm/s AV Mean Gradient 21.4 mmHg AV Velocity Time Integral 64.2 cm AI Peak Velocity 485.7 cm/s AI Peak Gradient 94.4 mmHg AI Pressure Half Time 507.2 ms LVOT Peak Velocity 156.9 cm/s LVOT Peak Gradient 9.8 mmHg LVOT Velocity Time Integral 36.6 cm LVOT Stroke Volume 117.2 cm??? LVOT Stroke Volume Index 55.9 ml/m??? LVOT Cardiac Index 2970.0 cm???/min???m??? AV Area Cont Eq vti 1.8 cm??? AV Area Cont Eq pk 1.5 cm??? Mitral E Point Velocity 60.0 cm/s Mitral A Point Velocity 109.6 cm/s Mitral E to A Ratio 0.5 MV Deceleration Time 320.9 ms LV E' Lateral Velocity 12.3 cm/s Mitral E to LV E' Lateral Ratio 4.9 LV E' Septal Velocity 7.7 cm/s Mitral E to LV E' Septal Ratio 7.8 TR Peak Velocity 232.0 cm/s TR Peak Gradient 21.5 mmHg Right Atrial Pressure 3.0 mmHg Pulmonary Artery Systolic Pressu 24.5 mmHg Right Ventricular Systolic Press 24.5 mmHg FINDINGS Left Ventricle Mildly increased left ventricular wall thickness. Left ventricular cavity size normal. No obvious regional wall motion abnormalities. Left ventricular ejection fraction is estimated at 55-60%. Right Ventricle Normal right ventricular size and function. Right Atrium Mild right atrial dilatation. Left Atrium Mild left atrial dilatation. Mitral Valve Structurally normal mitral valve. mitral regurgitation.mitral annular calcification. Aortic Valve Trileaflet aortic valve. Diffuse thickening of the aortic valve cusps with reduced excursion. Moderate aortic regurgitation. [id number] aortic stenosis with a peak gradient of 43 mmHg and a mean gradient of 21.4 mmHg. Tricuspid Valve Structurally normal tricuspid valve. Mild tricuspid regurgitation. Pulmonic Valve Structurally normal pulmonic valve. No pulmonic regurgitation. Pericardium No pericardial effusion. Aorta Normal size aortic root and proximal ascending aorta. CONCLUSIONS 1. Normal left ventricle size and systolic function 2. Mild to moderate aortic stenosis with moderate aortic regurgitation 3. Mild mitral and tricuspid regurgitation Previewed by: Dr. Marcia Delcid MD (Electronically Signed) Final Date: 06 November 2022 07:12
[2022-11-06 08:27] LABS: Chol/HDL Ratio 2.26 Ratio; LDL Cholesterol,Calculated 49.4 mg/dL (0.0-131.0); VLDL Calculation 11.88 mg/dL (5.00-40.00)
[2022-11-06] MEDS ORDERED: ASPIRIN 81 MG PO SCH (09:00)
[2022-11-06] MEDS ORDERED: lisinopriL 20 MG TAB PO SCH (09:00)
[2022-11-06] MEDS ORDERED: ASPIRIN 325 MG TAB PO SCH (09:00)
[2022-11-06] MEDS ORDERED: TAMSULOSIN 0.4 MG CAP.ER.24H PO SCH (09:00)
--- NOTE | 2022-11-06 09:41 | P.PN ---
Subjective Progress Note Date: 11/06/22 History of present illness: This is a 71-year-old male patient of Dr. Florencio Elizabeth with past medical history of coronary artery bypass graft [address] [facility] in 2008 with MAGAÑA to LAD and diagonal, saphenous vein graft to PDA, saphenous vein graft to the obtuse marginal branch, paroxysmal atrial fibrillation on Xarelto, aortic valve stenosis, hypertension, dyslipidemia, moderate bilateral carotid stenosis, peripheral artery disease status post right iliac stenting, melanoma resected on his back. We have been asked to evaluate the patient for chest pain. Patient gives history that he started having midsternal chest pain while he was sleeping. He got up to go to the bathroom and this was when he noticed the chest discomfort. When he went to bed the evening before, he did not have any chest pain or discomfort. He states that he started lifting weights a couple weeks ago. Pain is worse with a deep breath but no change with any movement. He denies having any shortness of breath, no palpitations, no lightheadedness or dizziness, no lower extremity edema. He is normally very active and plays pickle ball with most recent pickle ball on Saturday. He did not express any ches t discomfort at that time. He states he also obtains 20,000 steps per day. He quit smoking about 20 years ago. He last had a cardiac catheterization in 2010 or 2011 at [facility]. Patient is seen in the emergency center waiting for a bed on the observation unit. EKG sinus rhythm with no acute findings Chest x-ray: No acute process CBC within normal limits, INR 1.3. Elective lites normal. Creatinine 0.63. Magnesium 2.0. Liver function tests are normal. Troponin negative 1. Home cardiac medications: Amlodipine 10 mg at bedtime, atorvastatin 80 mg at bedtime, levothyroxine 200 g Saturday through Saturday, Esdras July 10 milligrams daily, Xarelto 20 mg at bedtime DALIA performed 04/2021 performed at [facility] in [facility] revealed normal LV systolic function, no evidence of left atrial appendage thrombus, no PFO, ASD or in chair atrial septal aneurysm. No pericardial effusion. Mild to moderate aortic regurgitation, trivial mitral regurgitation. Carotid ultrasound 03/06 performed in the office revealed 5079 percent stenosis bilaterally. Echocardiogram performed 02/20/2022 in the office revealed normal LV size, EF 65%, mild concentric left ventricular hypertrophy. Trileaflet aortic valve with moderate to severe aortic regurgitation and mild aortic stenosis. Mild mitral regurgitation, moderate tricuspid regurgitation, pulmonary artery systolic pressure 37 mmHg. Nuclear stress test 03/2021 completed in the office revealed above average exercise tolerance, negative stress test by EKG criteria, normal myocardial perfusion and function 11/06 Patient is seen today in follow up. Echocardiogram reveals EF of 55-60%, mild to moderate aortic stenosis with moderate aortic regurgitation, mild mitral and tricuspid regurgitation. Results reviewed with the patient. Patient states that he had episodes of CP during the night that was improved with Tylenol. Blood pressure 122/57, heart rate in 60s and 70s. Repeat troponins negative. Physical examination: Gen: This is a 71-year-old male. He is resting on ER stretcher and ap pears to be comfortable and in no acute distress. VS: reviewed HEENT: Head is atraumatic, normocephalic. Pupils equal, round. Sclerae is anicteric. NECK: Supple. No JVD. LUNGS: Clear to auscultation. No wheezes or rhonchi. No intercostal retractions. HEART: Regular rate and rhythm. Murmur right sternal border. ABDOMEN: Soft No tenderness. EXTREMITIES: No pedal edema. NEUROLOGICAL: Patient is awake, alert and oriented x3. Assessment: Chest pain most likely noncardiac and musculoskeletal History of coronary artery disease with previous four-vessel CABG Paroxysmal atrial fibrillation Aortic valve stenosis Hypertension Hyperlipidemia Moderate carotid stenosis Peripheral artery disease status post right iliac stenting Remote history of tobacco use Plan: Continue patient's home cardiac medications Obtain 2-D echocardiogram and Doppler study to assess cardiac structure and function Patient is scheduled for Cardiolite stress test today. If stress test is negative, patient is cleared for discharge May follow up in the office in one week with Dr. Elizabeth. Nurse practitioner note has been reviewed, I agree with documented findings and plan of care. Patient was seen and examined. Objective - Vital Signs Vital signs: Vital Signs Temp 99.5 F 11/06/22 01:58 Pulse 70 11/06/22 01:58 Resp 16 11/06/22 01:58 BP 122/57 11/06/22 01:58 Pulse Ox 94 L 11/06/22 01:58 FiO2 Intake & Output 11/05/22 11/06/2211/06/23 18:59 06:59 18:59 Weight 89.358 kg Other: # Voids 3 - Labs CBC & Chem 7: 11/05/22 09:03 11/05/22 09:03 Labs: Abnormal Lab Results - Last 24 Hours (Table) 11/05/22 11/05/22 Range/Units 09:03 09:03 PT 13.1 H (9.0-12.0) sec INR 1.3 H (<1.2) APTT 35.7 H (22.0-30.0) sec Creatinine 0.63 L (0.66-1.25) mg/dL
[2022-11-06 09:59] VITALS: BP 134/62; PULSE 60; RESP 14; TEMP 98.5
[2022-11-06] MEDS: ACETAMINOPHEN TAB 325 MG TAB PO PRN (11:24)
--- NOTE | 2022-11-06 11:50 | CA ---
Exercise Nuclear Stress Test Report Name: Fermín Fay Exam Date: 11/06/2022 10:19 Exam Location: [facility] Stress Ht (in): 71 Wt (lb): 197 BSA: 2.10 Ordering Phys: Minoo Bull Referring Phys: Josue, Technologist: Car Hammonds Age: 71 Gender: M : 1950 Procedure CPT: Indications: Reflex order-Stress test ICD-10 Codes: Patient History: Medications: SEE CHART Meds past 24 hrs: Pretest Chest Pain: STRESS TEST Kevyn Protocol Exercise Duration (min:sec): 08:[address] Depressions (mm): Angina Score: Perry Score: Resting HR (bpm): 77 Peak HR (bpm): 135 Resting BP (mmHg): 152 / 63 Peak BP (mmHg): 200 / 68 MPHR: 148 Target HR: 126 % MPHR: 91 METS: 10.3 Total Dose: Peak Dose: Atropine: Double Product: 68347 BP Response: Stress Termination: Reached target heart rate Stress Symptoms: CHEST PAIN Stress Summary: The patient's target heart rate was achieved, The hemodynamic response to exercise was normal ECG ANALYSIS Resting ECG: Sinus rhythm. Normal conduction. No arrhythmias. Nonspecific ST-T abnormality. Stress ECG: Ventricular premature contraction. Nondiagnostic electrocardiographic stress test secondary to baseline EKG abnormality CONCLUSIONS 1. Good exercise tolerance with rare PVCs and nondiagnostic electrocardiographic stress test secondary to baseline EKG normality 2. Chest discomfort during the stress test that is probably noncardiac 3. Nuclear images will be reported separately Dr. Marcia Delcid MD (Electronically Signed) Final Date: 06 November 2022 11:49
--- NOTE | 2022-11-06 11:58 | NM ---
EXAMINATION TYPE: NM stress cardiolite complete DATE OF EXAM: 11/06/2022 COMPARISON: NONE CLINICAL INDICATION: Male, 71 years old with history of CP; TECHNIQUE: After the intravenous administration of 9.9 mCi Tc 99m Sestamibi - Rest images obtained 6 5 minutes post injection. The patient exercised using a JERALD protocol and 1 minute prior to peak e xercise was injected with 24.3 mCi Tc 99m Sestamibi - Stress images obtained 30 minutes post injectio n. FINDINGS: Targeted heart rate was achieved during performance of the study. Review of stress and rest SPECT kimberlee ges demonstrates no distinct perfusion abnormality. Gated analysis shows normal wall motion with an estimated left ventricular ejection fraction of 52 %. IMPRESSION: No scintigraphic evidence for reversible ischemia
--- NOTE | 2022-11-06 12:41 | P.DS ---
Providers Date of admission: 11/05/22 09:54 Expected date of discharge: 11/06/22 Attending physician: Buddy Salas Consults: 11/05/22 09:54 Consult Physician Urgent Consulting Provider: Sean Elizabeth Consult Reason/Comments: chest pain Do you want consulting provider notified?: Yes Primary care physician: Buddy Salas [facility] Course: HISTORY OF PRESENT ILLNESS This is a 71-year-old male patient of Dr. Florencio Elizabeth with past medical history of coronary artery bypass graft 4 vessel done at [facility] in 2008 with MAGAÑA to LAD and diagonal, saphenous vein graft to PDA, saphenous vein graft to the obtuse marginal branch, paroxysmal atrial fibrillation on Xarelto, aortic valve stenosis, hypertension, dyslipidemia, moderate bilateral carotid stenosis, peripheral artery disease status post right iliac stenting, hypothyroidism, benign prostatic hypertrophy, melanoma resected from his back. Patient gives history that he started having midsternal chest pain while he was sleeping. He got up to go to the bathroom and this was when he noticed the chest discomfort. When he went to bed the evening before, he did not have any chest pain or discomfort. He states that he started lifting weights a couple weeks ago. Pain is worse with a deep breath but no change with any movement. He denies having any shortness of breath, no palpitations, no lightheadedness or dizziness, no lower extremity edema. He is normally very active and plays [employer] ball on a regular basis. He played football on Saturday and did not experience any chest discomfort. He states he also obtains 20,000 steps per day. EKG sinus rhythm with no acute findings Chest x-ray: No acute process CBC within normal limits, INR 1.3. Elective lites normal. Creatinine 0.63. Magnesium 2.0. Liver function tests are normal. Troponin negative 1. 10/27: Patient did have chest pain during the night that was improved with Tylenol. He underwent a stress Cardiolite this morning which came back negative for reversible ischemia. Echocardiogram reveals EF of 55-60%, mild to moderate aortic stenosis with moderate aortic regurgitation, mild mitral and tricuspid regurgitation. Patient has been cleared for discharge by cardiology. Patient will be discharged home today in stable condition. DISCHARGE DIAGNOSES 1. Chest pain, ruled out acute coronary syndrome. Most likely patient is musculoskeletal in etiology 2. History of coronary artery disease with 4 vessel CABG and reported normal cardiac cath in . 3. Paroxysmal atrial fibrillation currently in a sinus rhythm. 4. Hypertension hypertensive cardiovascular disease. 5. Hypothyroidism. 6. Benign prostatic hypertrophy. 7. Hyperlipidemia. 8. Peripheral artery disease status post iliac stent. Patient Condition at Discharge: Fair Plan - Discharge Summary Discharge Rx Participant: Yes New Discharge Prescriptions: Continue amLODIPine [Norvasc] 10 mg PO HS ramipriL 10 mg PO DAILY Glucosamine Sulfate 1,000 mg PO HS Rivaroxaban [Xarelto] 20 mg PO HS Atorvastatin [Lipitor] 80 mg PO HS Tamsulosin [Flomax] 0.4 mg PO DAILY Multivit,Calc,Min/FA/K1/Lycop [One-A-Day Men's Complete Tab] 1 tab PO HS Levothyroxine Sodium [Synthroid] 200 mcg PO MOTUWETHFRSA Ascorbic Acid [Vitamin C] 1,000 mg PO DAILY Acetaminophen [Tylenol Extra Strength] 500 mg PO HS Discharge Medication List Acetaminophen [Tylenol Extra Strength] 500 mg PO HS 10/24/22 [History] Ascorbic Acid [Vitamin C] 1,000 mg PO DAILY 10/24/22 [History] Atorvastatin [Lipitor] 80 mg PO HS 10/24/22 [History] Glucosamine Sulfate 1,000 mg PO HS 10/24/22 [History] Levothyroxine Sodium [Synthroid] 200 mcg PO MOTUWETHFRSA 10/24/22 [History] Multivit,Calc,Min/FA/K1/Lycop [One-A-Day Men's Complete Tab] 1 tab PO HS 10/24/22 [History] Rivaroxaban [Xarelto] 20 mg PO HS 10/24/22 [History] Tamsulosin [Flomax] 0.4 mg PO DAILY 10/24/22 [History] amLODIPine [Norvasc] 10 mg PO HS 10/24/22 [History] ramipriL 10 mg PO DAILY 10/24/22 [History] Follow up Appointment(s)/Referral(s): Buddy Salas MD [Primary Care Provider] - 1 Week Sean Elizabeth MD [STAFF PHYSICIAN] - 1 Week Discharge Disposition: HOME SELF-CARE
== END 2022-11-06 14:09 | disposition home or self-care (01) ==
LOC: EC 08:19 → 6NMEDSUR 09:54
PROVIDERS: ADMIT Internal Medicine; ATTEND Internal Medicine
DX: R07.89 Other chest pain (principal); I25.10 Atherosclerotic heart disease of native coronary artery without angina pectoris; I48.0 Paroxysmal atrial fibrillation; I08.3 Combined rheumatic disorders of mitral, aortic and tricuspid valves; I65.23 Occlusion and stenosis of bilateral carotid arteries; E78.5 Hyperlipidemia, unspecified; I73.9 Peripheral vascular disease, unspecified; N40.0 Benign prostatic hyperplasia without lower urinary tract symptoms; E03.9 Hypothyroidism, unspecified; Z79.890 Hormone replacement therapy; Z79.01 Long term (current) use of anticoagulants; Z79.899 Other long term (current) drug therapy; Z88.1 Allergy status to other antibiotic agents; Z87.891 Personal history of nicotine dependence; Z95.828 Presence of other vascular implants and grafts; Z85.820 Personal history of malignant melanoma of skin; Z95.1 Presence of aortocoronary bypass graft; Z90.49 Acquired absence of other specified parts of digestive tract; Z98.890 Other specified postprocedural states; Z82.49 Family history of ischemic heart disease and other diseases of the circulatory system; Z82.0 Family history of epilepsy and other diseases of the nervous system; Z81.2 Family history of tobacco abuse and dependence
CPT/HCPCS: 99285; 36415; 93005; 93017; 93306; 80061; 80053; 83735; 84484 ×2; 85025; 85610; 85730; 71046; 78452; G0378 ×2; A9500

== ENCOUNTER → 2022-12-06 | Day surgery (SDC) | payer MEDICARE, OTHER ==
[~2022-12-06] MED LIST: LIDOCAINE 1% INJ 10MG/ML (5 ML VIAL-PF) SQ ONE
--- NOTE | 2022-12-06 09:11 | IR ---
PICC LINE PLACEMENT: HISTORY: Malfunctioning PICC line PROCEDURE: Fluoroscopic guided PICC line exchange. COMPLICATIONS: None ANESTHESIA: 1. 1% Lidocaine locally. FINDINGS/TECHNIQUE: The procedure was explained to the patient. The risks, complications, benefits and alternatives were discussed and any questions were answered. Informed consent was obtained. The patient was placed supine on the fluoroscopic table and prepped and draped in the usual sterile fash ion. Pre-existing PICC line was cut and an 0.018 guidewire was passed through the catheter and remove d over the guidewire. The vein is patent. A 4-F sheath was placed over the guidewire. The guidewire and dilator were removed and a 4-F. PICC line was placed through the sheath with the tip at the leve l of the SVC. The sheath was removed, the catheter was flushed and sutured into position. The patie nt was stable throughout the procedure and remained stable upon discharge from the Department of Radi ology. The vein puncture was patent under ultrasound. A taveras scale image was obtained to document patency of the vein punctured. All elements of the maximal barrier technique were utilized. FLUOROSCOPY TIME: DAP 0.891 Gy cm2 IMPRESSION: Successful PICC line exchange under fluoroscopic guidance.
== END ==
LOC: CATHCVL 06:33
PROVIDERS: ATTEND Radiology Diagnostic Radiology
DX: T82.898A Other specified complication of vascular prosthetic devices, implants and grafts, initial encounter (principal); I10 Essential (primary) hypertension; E78.5 Hyperlipidemia, unspecified; E03.9 Hypothyroidism, unspecified; I48.0 Paroxysmal atrial fibrillation; Y83.8 Other surgical procedures as the cause of abnormal reaction of the patient, or of later complication, without mention of misadventure at the time of the procedure
CPT/HCPCS: 36598; 36584; C1751; C1769; J2001

== ENCOUNTER 2022-12-11 00:43 | Emergency (ER) | payer MEDICARE, OTHER ==
[2022-12-11 00:50] VITALS: TEMP 98.3
[2022-12-11 01:36] LABS: Basophils % (A) 0 %; Eosinophils # (A) 0.2 k/uL (0-0.7); Eosinophils % (A) 2 %; HCT 35.4 % (39.0-53.0); Lymphocytes # (A) 0.9 k/uL (1.0-4.8); Lymphocytes % (A) 9 %; MCH 28.3 pg (25.0-35.0); MCHC 32.9 g/dL (31.0-37.0); MCV 86.1 fL (80.0-100.0); Mean Platelet Volume 7.8; Monocytes # (A) 0.6 k/uL (0-1.0); Monocytes % (A) 6 %; Neutrophils # (A) 8.2 k/uL (1.3-7.7); Neutrophils % (A) 82 %; Platelet Count 300 k/uL (150-450); RBC 4.11 m/uL (4.30-5.90); RDW 13.9 % (11.5-15.5)
[2022-12-11 01:37] LABS: ALT 60 U/L (4-49); AST 52 U/L (17-59); African American GFR (CKD) >90 (>60 ml/min/1.73 sqM); Albumin 3.3 g/dL (3.5-5.0); Alkaline Phosphatase 155 U/L (38-126); Amylase 87 U/L (30-110); Anion Gap 8 mmol/L; Blood Urea Nitrogen 22 mg/dL (9-20); Carbon Dioxide 25 mmol/L (22-30); Chloride 102 mmol/L (98-107); Glucose 155 mg/dL (74-99); Lipase 443 U/L (23-300); Non-African American GFR(CKD) 80 (>60 ml/min/1.73 sqM); Potassium 4.3 mmol/L (3.5-5.1); Sodium 135 mmol/L (137-145); Total Bilirubin 0.6 mg/dL (0.2-1.3); Total Protein 7.2 g/dL (6.3-8.2)
[2022-12-11] MEDS ORDERED: SODIUM CHLORIDE 0.9% 1,000 ML IV STA (01:38)
[2022-12-11] MEDS ORDERED: ONDANSETRON 4 MG/2 ML VIAL IVP STA (01:38)
[2022-12-11] MEDS ORDERED: MORPHINE SULFATE 4 MG/ML SYRINGE IVP STA ×2 (01:38→04:32)
[2022-12-11 01:44] LABS: HGB 11.6 gm/dL (13.0-17.5)
[2022-12-11 02:13] LABS: Appearance,Urine Clear (Clear); Bilirubin,Urine Negative (Negative); Blood,Urine Large (Negative); Color,Urine Yellow; Glucose,Urine (UA) Negative (Negative); Hyaline Casts,Urine 3 /lpf (0-2); Ketones,Urine Negative (Negative); Leukocyte Esterase,Urine Negative (Negative); Mucus,Urine Rare /hpf; Nitrite,Urine Negative (Negative); Protein,Urine 1+ (Negative); RBC,Urine >182 /hpf (0-5); Specific Gravity,Urine 1.017 (1.001-1.035); Squamous Epithelial Cell,Urine <1 /hpf (0-4); Urobilinogen,Urine <2.0 mg/dL (<2.0); WBC,Urine 7 /hpf (0-5)
--- NOTE | 2022-12-11 04:46 | ED ---
General Adult HPI - General Chief complaint: Back Pain/Injury Stated complaint: Back pain, elevated bp Time Seen by Provider: 12/11/22 01:37 Source: patient, RN notes reviewed, old records reviewed Mode of arrival: ambulatory Limitations: no limitations - History of Present Illness Initial comments: Patient is a 71-year-old male with past medical history remarkable for atrial fibrillation on blood thinners, hypertension, MRSA infection currently on IV daptomycin via PICC line in right upper extremity who presents emergency Department complaining of left-sided flank pain. Has been ongoing throughout the day today. Has intermittent nausea. No emesis. Describes the pain as sharp. Has noticed a darker colored urine that may be bloody. Denies any chest pain or shortness of breath. Denies any fevers, chills, cough. Denies any dysuria. Denies any fevers. Denies any diarrhea. Has no other acute complaints at this time.Patient states henoticed his blood pressure was also elevated today he believes is secondary to pain. Presents for further evaluation at this time. - Related Data Home Medications Medication Instructions Recorded Confirmed Acetaminophen [Tylenol Extra 500 mg PO HS 10/24/22 12/06/22 Strength] Ascorbic Acid [Vitamin C] 1,000 mg PO DAILY 10/24/22 12/06/22 Atorvastatin [Lipitor] 80 mg PO HS 10/24/22 12/06/22 Glucosamine Sulfate 1,000 mg PO HS 10/24/22 12/06/22 Levothyroxine Sodium [Synthroid] 200 mcg PO [id number] 10/24/22 12/06/22 Multivit,Calc,Min/FA/K1/Lycop 1 tab PO HS 10/24/22 12/06/22 [One-A-Day Men's Complete Tab] Rivaroxaban [Xarelto] 20 mg PO HS 10/24/22 12/06/22 Tamsulosin [Flomax] 0.4 mg PO DAILY 10/24/22 12/06/22 amLODIPine [Norvasc] 10 mg PO HS 10/24/22 12/06/22 ramipriL 10 mg PO DAILY 10/24/22 12/06/22 traMADol HCL 50 mg PO Q6H 12/06/22 12/06/22 Allergies Allergy/AdvReac Type Severity Reaction Status Date / Time ciprofloxacin [From Cipro] Allergy TROUBLE Verified 11/05/22 09:22 SWALLOWING Review of Systems ROS Statement: Those systems with pertinent positive or pertinent negative responses have been documented in the HPI. Review of Systems: CONST: Denies fever EYES: Denies blurry vision ENT: Denies nasal congestion C/V: Denies Chest pain RESP: Denies shortness of breath GI: Endorses abdominal pain : Denies dysuria SKIN: Denies rash. MSK: Denies joint pain. NEURO: Denies headache ROS Other: All systems not noted in ROS Statement are negative. Past Medical History Past Medical History: Atrial Fibrillation, Cancer, Hyperlipidemia, Hypertension, Prostate Disorder, Thyroid Disorder Additional Past Medical History / Comment(s): MELANOMA ON BACK History of Any Multi-Drug Resistant Organisms: MRSA Date of last positivie culture/infection: 11/18/22 Past Surgical History: Appendectomy, Coronary Bypass/CABG, Heart Catheterization, Hernia Repair, Orthopedic Surgery, Tonsillectomy Additional Past Surgical History / Comment(s): QUAD BYPASS-2010 ,COLONOSCOPY X 3 ,MELANOMA REMOVED FROM BACK. ORIF RT WRIST ,TITANIUM PLATE LT SHOULDER. NUMEROUS HERNIA REPAIRS ,DALIA Past Anesthesia/Blood Transfusion Reactions: No Reported Reaction Past Psychological History: No Psychological Hx Reported Smoking Status: Former smoker Past Alcohol Use History: None Reported Past Drug Use History: None Reported - Past Family History Mother Family Medical History: No Reported History General Exam - General Exam Comments Initial Comments: General: Appears in moderate discomfort secondary to pain. HEAD: Normal with no signs of head trauma. EYES: PERRLA, EOMI, conjunctiva normal, no discharge. ENT: Hearing grossly intact, normal oropharynx. RESPIRATORY: Clear breath sounds bilaterally. No wheezes, rales, or rhonchi. C/V: Regular rate and rhythm. S1 and S2 auscultated, no edema, peripheral pulses 2+ and intact throughout ABD: Abdomen soft, nondistended. Has left-sided flank tenderness to palpation of back tenderness palpation. No CVA tenderness to percussion. No guarding. No peritoneal signs. No rebound tenderness. EXT: Normal range of motion, no obvious deformity SKIN: No rashes or lesions observed on exposed skin. NEURO: Alert and oriented 4. Limitations: no limitations Course Vital Signs 12/11/22 12/11/22 12/11/22 00:43 01:26 01:28 Temperature 98.3 F Pulse Rate 87 72 Respiratory 18 18 Rate Blood Pressure 193/75 158/79 O2 Sat by Pulse 97 Oximetry 12/11/22 12/11/22 12/11/22 02:10 04:59 05:46 Temperature Pulse Rate 74 Respiratory 18 18 19 Rate Blood Pressure 154/77 147/78 O2 Sat by Pulse 94 L Oximetry 12/11/22 06:04 Temperature Pulse Rate 76 Respiratory 19 Rate Blood Pressure 146/74 O2 Sat by Pulse 95 Oximetry Medical Decision Making - Medical Decision Making Was pt. sent in by a medical professional or institution (, PA, HOOP BENDING MACHINE OPERATOR, urgent care, hospital, or half-way...) When possible be specific @ -No Did you speak to anyone other than the patient for history (EMS, parent, family, police, friend...)? What history was obtained from this source @ -No Did you review nursing and triage notes (agree or disagree)? Why? @ -I reviewed and agree with nursing and triage notes Were old charts reviewed (outside hosp., previous admission, EMS record, old EKG, old radiological studies, urgent care reports/EKG's, half-way records)? Report findings @ -No old charts were reviewed Differential Diagnosis (chest pain, altered mental status, abdominal pain women, abdominal pain men, vaginal bleeding, weakness, fever, dyspnea, syncope, headache, dizziness, GI bleed, back pain, seizure, CVA, palpatations, mental health, musculoskeletal)? @ -Differential Abdominal Pain Men: Appendicitis, cholecystitis, diverticulosis, ischemic bowel, pancreatitis, hepatitis, UTI, gastroenteritis, AAA, incarcerated hernia, bowel obstruction, constipation, inflammatory bowel, hepatitis, peptic ulcer disease, splenic infarction, perforated viscus, testicular torsion, this is not meant to be an all-inclusive list EKG interpreted by me (3pts min.). @ -None done X-rays interpreted by me (1pt min.). @ -None done CT interpreted by me (1pt min.). @ -CT imaging of the abdomen and pelvis reveals a distal ureteral lithiasis measuring 5 mm with moderate hydronephrosis. U/S interpreted by me (1pt. min.). @ -None done What testing was considered but not performed or refused? (CT, X-rays, U/S, labs)? Why? @ -None What meds were considered but not given or refused? Why? @ -None Did you discuss the management of the patient with other professionals (professionals i.e. , PA, HOOP BENDING MACHINE OPERATOR, lab, RT, psych nurse, social service coordinator, materials planner, teacher, chief diversity officer, shoe caser)? Give summary @ -No Was smoking cessation discussed for >3mins.? @ -No Was critical care preformed (if so, how long)? @ -No Were there social determinants of health that impacted care today? How? (Homelessness, low income, unemployed, alcoholism, drug addiction, transportation, low edu. Level, literacy, decrease access to med. care, shelter, rehab)? @ -No Was there de-escalation of care discussed even if they declined (Discuss DNR or withdrawal of care, Hospice)? DNR status @ -No What co-morbidities impacted this encounter? (DM, HTN, Smoking, COPD, CAD, Cancer, CVA, ARF, Chemo, Hep., AIDS, mental health diagnosis, sleep apnea, morbid obesity)? @ -None Was patient admitted / discharged? Hospital course, mention meds given and route, prescriptions, significant lab abnormalities, going to OR and other per tinent info. @ -Based on the patient's presentation and physical exam, I'm concerned for likely renal process at this time considering the hematuria as well as the left flank pain. He has a known history of prior kidney stones. We will obtain CT abdomen and pelvis without contrast in addition to abdominal laboratory studies and urine studies. He will be symptomatically treated with IV fluids, morphine, Zofran. Patient was in agreement this plan. I did update the patient that it as it is the middle the night, CT imaging results will take some time to get back and he was in agreement with the plan. Vital signs within acceptable limits. Blood pressure is improved. Patient's labs are remarkable for an anemia of 11.6, which patient states has been monitored outpatient and was low as well. Patient's labs also showed nonspecific findings including a minimally elevated lipase. Renal function is adequate. Urinalysis shows a few white cells which are likely reactive with hematuria. CT imaging shows a 5 mm left distal ureteral lithiasis with moderate h ydronephrosis. I gave the patient. Pain is controlled at this time. Tolerating oral intake. We discussed his workup. His pain is controlled, he has no nausea or vomiting, and there is no evidence of infected stone I do believe it is safe for him to go home at this time. Based on the stone size and has a 60% chance of passing. We discussed this. Patient is already on Flomax. He'll be given a strainer as well as starter packs of Zofran and, 3. Strict return precautions. Instructed to follow-up with Dr. Salas. He was in agreement this plan. I instructed the patient to follow up with their PCP in the next 1-3 days. I provided contact information for follow up with urology. I explained that the patient should return to the emergency department if they experience any worsening symptoms. Strict return precautions were discussed with the patient. The patient expressed understanding of these instructions. I answered all questions that the patient had. The patient was discharged home in good condition with their prescriptions and follow up information. Undiagnosed new problem with uncertain prognosis? @ -No Drug Therapy requiring intensive monitoring for toxicity (Heparin, Nitro, Insulin, Cardizem)? @ -No Were any procedures done? @ -No Diagnosis/symptom? @ -Left-sided ureterolithiasis Acute, or Chronic, or Acute on Chronic? @ -Acute Uncomplicated (without systemic symptoms) or Complicated (systemic symptoms)? @ -Complicated Side effects of treatment? @ -none Exacerbation, Progression, or Severe Exacerbation] @ -no Poses a threat to life or bodily function? @ -no - Lab Data Result diagrams: 12/11/22 01:07 12/11/22 01:07 Lab Results 12/11/22 12/11/22 12/11/22 Range/Units 01:07 01:07 01:28 WBC 10.0 (3.8-10.6) k/uL RBC 4.11 L (4.30-5.90) m/uL Hgb 11.6 L D (13.0-17.5) gm/dL Hct 35.4 L (39.0-53.0) % MCV 86.1 (80.0-100.0) fL MCH 28.3 (25.0-35.0) pg MCHC 32.9 (31.0-37.0) g/dL RDW 13.9 (11.5-15.5) % Plt Count 300 (150-450) k/uL MPV 7.8 Neutrophils % 82 % Lymphocytes % 9 % Monocytes % 6 % Eosinophils % 2 % Basophils % 0 % Neutrophils # 8.2 H (1.3-7.7) k/uL Lymphocytes # 0.9 L (1.0-4.8) k/uL Monocytes # 0.6 (0-1.0) k/uL Eosinophils # 0.2 (0-0.7) k/uL Basophils # 0.0 (0-0.2) k/uL Sodium 135 L (137-145) mmol/L Potassium 4.3 (3.5-5.1) mmol/L Chloride 102 (98-107) mmol/L Carbon Dioxide 25 (22-30) mmol/L Anion Gap 8 mmol/L BUN 22 H (9-20) mg/dL Creatinine 0.95 (0.66-1.25) mg/dL Est GFR (CKD-EPI)AfAm >90 (>60 ml/min/1.73 sqM) Est GFR (CKD-EPI)NonAf 80 (>60 ml/min/1.73 sqM) Glucose 155 H (74-99) mg/dL Calcium 9.0 (8.4-10.2) mg/dL Total Bilirubin 0.6 (0.2-1.3) mg/dL AST 52 (17-59) U/L ALT 60 H (4-49) U/L Alkaline Phosphatase 155 H (38-126) U/L Total Protein 7.2 (6.3-8.2) g/dL Albumin 3.3 L (3.5-5.0) g/dL Amylase 87 (30-110) U/L Lipase 443 H (23-300) U/L Urine Color Yellow Urine Appearance Clear (Clear) Urine pH 7.0 (5.0-8.0) Ur Specific [place] 1.017 (1.001-1.035) Urine Protein 1+ H (Negative) Urine Glucose (UA) Negative (Negative) Urine Ketones Negative (Negative) Urine Blood Large H (Negative) Urine Nitrite Negative (Negative) Urine Bilirubin Negative (Negative) Urine Urobilinogen <2.0 (<2.0) mg/dL Ur Leukocyte Esterase Negative (Negative) Urine RBC >182 H (0-5) /hpf Urine WBC 7 H (0-5) /hpf Ur Squamous Epith Cells <1 (0-4) /hpf Hyaline Casts 3 H (0-2) /lpf Urine Mucus Rare H (None) /hpf Disposition Clinical Impression: Ureterolithiasis Disposition: HOME SELF-CARE Condition: Good Instructions (If sedation given, give patient instructions): Kidney Stones (ED) Is patient prescribed a controlled substance at d/c from ED?: No Referrals: Budyd Salas MD [Primary Care Provider] - 1-2 days Rocky Preciado MD [STAFF PHYSICIAN] - 1-2 days Time of Disposition: 05:55
[2022-12-11 05:47] VITALS: RESP 19
[2022-12-11] MEDS ORDERED: ACET/COD 300 MG/30 MG STARTER PACK 6 TAB BTL PO STA (05:47)
--- NOTE | 2022-12-11 05:49 | CT ---
EXAMINATION TYPE: CT abdomen pelvis wo con DATE OF EXAM: 12/11/2022 HISTORY: Pt. c/o mild LLQ pain with radiation to left flank since 4:30pm yesterday with intermittent nausea- no vomiting. CT DLP: 773.7 mGycm. Automated Exposure Control for Dose Reduction was Utilized. TECHNIQUE: CT scan of the abdomen and pelvis is performed without oral or IV contrast. COMPARISON: Prior CT August 27, 2022 FINDINGS: Within the limitations of a non-contrast study, the following observations are made. LUNG BASES: Partial visualization of inferior sternal wires and [place] coronary artery calcification. There is new small pericardial effusion. Dependent opacity in bilateral lung bases favors atelectasi s LIVER/GB: No significant abnormality is appreciated. PANCREAS: No significant abnormality is seen. SPLEEN: No significant abnormality is seen. ADRENALS: No significant abnormality is seen. KIDNEYS: No right-sided renal calculi or hydronephrosis. There are approximately 6 left renal calculi measuring up to 5 mm in size. There is 5 to 6 mm distal left ureter calculus axial image 117 causing moderate to severe left-sided hydronephrosis and left-sided perinephric fluid. BOWEL: Small sized hiatal hernia is redemonstrated. GENITAL ORGANS: No gross abnormality seen. LYMPH NODES: No greater than 1cm abdominal or pelvic lymph nodes are appreciated. OSSEOUS STRUCTURES: Severe grade 1 anterolisthesis L5 on S1 redemonstrated. Advanced disc space narro wing L5-S1 level redemonstrated. There is vacuum disc phenomenon with moderate disc space narrowing a t L4-L5 level redemonstrated. Multilevel spurring in the thoracolumbar spine redemonstrated. Mild-to- moderate axial joint space loss in both hips redemonstrated. OTHER: Moderate to severe hypertrophic change of aorta extending into branch vessels is redemonstrate d. Right common iliac arterial stent is redemonstrated. Surgical changes right groin region from prio r hernia repair surgery redemonstrated. Stable small fat-containing left inguinal hernia. Stable smal l fat-containing umbilical hernia sagittal image 70. IMPRESSION: 1. New 5 to 6 mm distal left ureter calculus causing moderate to severe left-sided hydronephrosis.
[2022-12-11] MEDS ORDERED: ONDANSETRON 4 MG ODT STARTER PACK 2 TAB BTL PO STA (06:04)
[2022-12-11 06:05] VITALS: BP 146/74; PULSE 76
[2022-12-11] MEDS ORDERED: MORPHINE SULFATE 2 MG/ML SYRINGE IVP STA (06:06)
== END 2022-12-11 06:24 | disposition home or self-care (01) ==
LOC: EC 00:43
DX: N13.2 Hydronephrosis with renal and ureteral calculous obstruction (principal); I48.91 Unspecified atrial fibrillation; E78.5 Hyperlipidemia, unspecified; E07.9 Disorder of thyroid, unspecified; Z87.891 Personal history of nicotine dependence; Z88.1 Allergy status to other antibiotic agents; Z79.890 Hormone replacement therapy; Z79.01 Long term (current) use of anticoagulants; Z79.899 Other long term (current) drug therapy
CPT/HCPCS: 36415; 80053; 82150; 83690; 85025; 81001; 74176; 99284; 96374; 96375; 96376 ×2; 96361; J2270 ×2; J2405; S0119

== ENCOUNTER 2023-10-14 11:50 | Day surgery (SDC) | payer MEDICARE, OTHER ==
[~2023-10-14 11:50] MED LIST changes: +ALPRAZolam 0.25 MG TAB PO PRN; +ALPRAZolam 0.5 MG TAB PO PRN; +ASPIRIN 325 MG TAB PO STA; -LIDOCAINE 1% INJ 10MG/ML (5 ML VIAL-PF) SQ ONE; +NITROGLYCERIN SL TABS 0.4 MG TAB SUBLINGUAL PRN; +SODIUM CHLORIDE 0.9% 1,000 ML in EMPTY BAG 1 BAG IV SCH
[2023-10-14] MEDS: SODIUM CHLORIDE 0.9% 1,000 ML IV ONE (12:09)
[2023-10-14 12:33] VITALS: RESP 16; TEMP 98.6
[2023-10-14] MEDS ORDERED: LIDOCAINE 1% INJ 10MG/ML (20 ML MDV) ONE (13:39)
[2023-10-14] MEDS ORDERED: VERAPAMIL 2.5 MG/ML 2 ML AMP ONE (13:39)
[2023-10-14] MEDS ORDERED: fentaNYL (PF) 50 MCG/ML 2 ML AMP ONE (13:39)
[2023-10-14] MEDS: MIDAZOLAM 2 MG/2 ML VIAL IVP ONE (13:47)
[2023-10-14] MEDS: fentaNYL (PF) 50 MCG/1 ML VIAL IVP ONE (13:47)
[2023-10-14] MEDS: LIDOCAINE 1% INJ 10MG/ML (20 ML MDV) SQ ONE (13:47)
[2023-10-14] MEDS: VERAPAMIL 2.5 MG/ML 4 ML VIAL INTRAARTER ONE (13:48)
[2023-10-14] MEDS: HEPARIN SODIUM 1,000 UN/ML (10ML VL) IVP ONE (13:52)
[2023-10-14] MEDS: HEPARIN SODIUM,PORCINE 10,000 UNIT in SODIUM CHLORIDE 0.9% 1,000 ML IRRIGATION ONE (14:00)
[2023-10-14] MEDS: HEPARIN SODIUM,PORCINE (1 ML) 2,500 UNIT in SODIUM CHLORIDE 0.9% 250 ML IRRIGATION ONE (14:01)
--- NOTE | 2023-10-14 14:38 | P.CARDCATH ---
Description of Procedure: PROCEDURES PERFORMED: Left heart catheterization, bilateral coronary angiography, MAGAÑA to LAD, SVG to OM angiography, aortic root angiography, ultrasound guided arterial access INDICATION: chest pain, abnormal stress test, daily with prior bypass CONSENT:I have discussed the risks, benefits and alternative therapies for the above-mentioned procedure and for both sedation/analgesia as well as necessary blood product administration, if indicated, as they pertain to this patient. The patient has indicated understanding and acceptance of the risks and procedures discussed. PROCEDURE: After the risks, benefits and alternatives of the above mentioned procedure explained in detail with the patient, informed consent was obtained. Patient was taken to the catheterization lab and prepped and draped in usual fashion. Ultrasound guidance was used to assess for arterial access. 1% lidocaine was used to anesthetize the left radial artery. A 6-[place] sheath was placed in the left radial artery using modified Seldinger technique and ultrasound guidance. Left coronary angiography was performed with a 5-[place] JL 4.0 catheter and right coronary angiography was performed with a 5-[place] FR4 catheter in various views. A 5-[place] FR4 catheter was inserted into the left ventricle and pressure measurements were obtained. MAGAÑA to LAD angiography was performed subselectively with a 6-[place] IM catheter. In aortic root angiogram showed patent SVG to PDA however no SVG to OM graft. The SVG to PDA graft was engaged with a 6-[place] AR to catheter. The radial sheath was removed and a TR band was placed with hemostasis achieved. The patient tolerated the procedure well. Patient was transported back to the post catheterization holding area in stable condition. Conscious Sedation: Patient was monitored under the direct supervision of myself for conscious sedation using Versed and fentanyl for a total duration of 35 estuardo abiodun HEMODYNAMICS: aorta: 110/52 LV: 117/2, LVEDP 6, mean gradient across the valve 8 SELECTIVE CORONARY ARTERIOGRAPHY: LEFT MAIN: The left main is a large caliber vessel which bifurcates into the LAD and circumflex. There is 100% left main stenosis LEFT ANTERIOR DESCENDING CORONARY ARTERY: there is no antegrade flow through the [place] LAD. LEFT CIRCUMFLEX CORONARY ARTERY: there is no antegrade flow through the [place] circumflex RIGHT CORONARY ARTERY: The right coronary artery is a large caliber vessel which gives off a PDA and PLV branch and is the dominant vessel. There is 100% proxim al RCA stenosis. MAGAÑA to LAD: Widely patent with junk graft to diagonal branch. There does appear to be a more proximal stenosis just prior to the MAGAÑA insertion in the LAD which is in the order of 60-70% stenosis. SVG to PDA: Widely patent. There are collaterals to the circumflex. SVG to OM: 100% occluded Aortogram: There is no significant aortic root dilation. There is 3-4+ aortic insufficiency. FINAL IMPRESSION: 1. Severe [place] CAD as described above including 100% left main stenosis, 100% RCA stenosis 2. Patent MAGAÑA to LAD/diagonal, SVG to PDA, occluded SVG to OM1 3. Normal left sided filling pressures 4. 3-4+ aortic insufficiency 5. Mild aortic stenosis PLAN: 1. Aggressive risk factor modification per most recent ACC/AHA guidelines. 2. No interventional targets with 100% left main stenosis as well as 100% SVG to OM with robust right to left collaterals. Continue treatment medically.
[2023-10-14 18:17] VITALS: BP 123/69; PULSE 49
== END 2023-10-14 17:41 | disposition home or self-care (01) ==
LOC: CATHCVL 11:50
PROVIDERS: ATTEND Internal Medicine
DX: I25.810 Atherosclerosis of coronary artery bypass graft(s) without angina pectoris (principal)
CPT/HCPCS: 93459; 93567; C1769; C1894; J2250; J1644 ×3; J2001; J3010

== ENCOUNTER → 2023-10-22 | Outpatient (CLI) | payer MEDICARE, OTHER ==
[2023-10-22 19:14] LABS: ALT 22 U/L (10-49); AST 33 U/L (14-35); Albumin 4.4 g/dL (3.8-4.9); Albumin/Globulin Ratio 1.69 Ratio (1.60-3.17); Alkaline Phosphatase 121 U/L (41-126); Blood Urea Nitrogen 12.4 mg/dL (9.0-27.0); Calcium 9.3 mg/dL (8.7-10.3); Carbon Dioxide 24.7 mmol/L (21.6-31.8); Chloride 101 mmol/L (96-109); Globulin 2.6 g/dL (1.6-3.3); Glucose 110 mg/dL (70-110); Potassium 4.1 mmol/L (3.5-5.5); Sodium 137 mmol/L (135-145); Total Bilirubin 1.3 mg/dL (0.3-1.2)
[2023-10-22 21:04] LABS: Basophils # (A) 0.04 X 10*3/uL (0.00-0.10); Basophils % (A) 0.4 %; Eosinophils # (A) 0.01 X 10*3/uL (0.04-0.35); Eosinophils % (A) 0.1 %; HCT 44.2 % (39.6-50.0); HGB 14.4 g/dL (13.0-17.0); Lymphocytes # (A) 1.35 X 10*3/uL (0.90-5.00); Lymphocytes % (A) 12.9 %; MCH 29.3 pg (27.0-32.0); MCHC 32.6 g/dL (32.0-37.0); Mean Platelet Volume 11.2 FL (9.5-12.2); Monocytes # (A) 1.08 X 10*3/uL (0.20-1.00); Monocytes % (A) 10.3 %; NRBC Per 100 WBC 0 X 10*3/uL (0.00-0.01); Neutrophils # (A) 7.99 X 10*3/uL (1.80-7.70); Platelet Count 142 X 10*3/uL (140-440); RBC 4.91 X 10*6/uL (4.40-5.60); RDW 13.8 % (11.5-14.5)
== END | disposition home or self-care (01) ==
LOC: LABWHC1 14:44
PROVIDERS: ATTEND Registered Nurse
DX: T82.7XXA Infection and inflammatory reaction due to other cardiac and vascular devices, implants and grafts, initial encounter (principal); R50.9 Fever, unspecified; Y82.9 Unspecified medical devices associated with adverse incidents
CPT/HCPCS: 36415; 80053; 85025; 85652; 86140; 87040

== ENCOUNTER → 2023-10-28 | Outpatient (CLI) | payer MEDICARE, OTHER ==
--- NOTE | 2023-10-28 19:32 | XR ---
EXAMINATION TYPE: XR chest 2V DATE OF EXAM: 10/28/2023 COMPARISON: 11/05/2022 INDICATION: Fever TECHNIQUE: Frontal and lateral views of the chest are obtained. FINDINGS: The heart size is normal. The pulmonary vasculature is normal. The lungs are clear. Small left pleural effusion is present. IMPRESSION: 1. Multilevel pleural effusion.
== END | disposition home or self-care (01) ==
LOC: RADXRMAIN 16:04
PROVIDERS: ATTEND Internal Medicine Infectious Disease
DX: J90 Pleural effusion, not elsewhere classified (principal)
CPT/HCPCS: 71046

== ENCOUNTER 2023-10-29 03:43 | Inpatient (IN) | payer MEDICARE, OTHER ==
[2023-10-29 04:22] LABS: Basophils % (A) 0 %; Eosinophils # (A) 0.1 k/uL (0-0.7); Eosinophils % (A) 1 %; HCT 40.6 % (39.0-53.0); HGB 13.3 gm/dL (13.0-17.5); Lymphocytes # (A) 0.8 k/uL (1.0-4.8); Lymphocytes % (A) 7 %; MCH 29.9 pg (25.0-35.0); MCHC 32.8 g/dL (31.0-37.0); MCV 91.3 fL (80.0-100.0); Mean Platelet Volume 8.7; Monocytes # (A) 0.6 k/uL (0-1.0); Monocytes % (A) 5 %; Neutrophils # (A) 9.9 k/uL (1.3-7.7); Neutrophils % (A) 86 %; Platelet Count 221 k/uL (150-450); RBC 4.45 m/uL (4.30-5.90); RDW 12.8 % (11.5-15.5); WBC 11.6 k/uL (3.8-10.6)
[2023-10-29 04:33] LABS: ALT 53 U/L (4-49); AST 254 U/L (17-59); African American GFR (CKD) 90 (>60 ml/min/1.73 sqM); Albumin 3.9 g/dL (3.5-5.0); Alkaline Phosphatase 104 U/L (38-126); Anion Gap 10 mmol/L; Blood Urea Nitrogen 34 mg/dL (9-20); Carbon Dioxide 25 mmol/L (22-30); Chloride 99 mmol/L (98-107); Glucose 110 mg/dL (74-99); Non-African American GFR(CKD) 78 (>60 ml/min/1.73 sqM); Potassium 4.2 mmol/L (3.5-5.1); Sodium 134 mmol/L (137-145); Total Bilirubin 1.5 mg/dL (0.2-1.3); Total Protein 6.9 g/dL (6.3-8.2)
[2023-10-29 04:37] LABS: INR 1.5 (<1.2); Partial Thromboplastin Time 40.2 sec (22.0-30.0); Prothrombin Time 15.7 sec (10.0-12.5)
[2023-10-29 04:42] LABS: NT-Pro-B-Type Natriuretic Pept 14200 pg/mL
--- NOTE | 2023-10-29 04:56 | ED ---
General Adult HPI - General Chief complaint: Shortness of Breath Stated complaint: SOB Time Seen by Provider: 10/29/23 04:15 Source: patient, RN notes reviewed, old records reviewed Mode of arrival: ambulatory Limitations: no limitations - History of Present Illness Initial comments: Patient is a 72-year-old male who presents emergency department for 1 week of cough, congestion. Had a recent cardiac cath on October 13 which did reveal severe kenaitze CAD as well as an occluded SVG to OM1 of his CABG. A history of A-fib on Xarelto, CAD, CABG. Also has a history of a MRSA infection. States he has been having some substernal chest aching that has been more or less constant for the last week with slight worsening last night with associated dyspnea. No nausea or vomiting. No lower extremity swelling. Has been on doxycycline for over a week with minimal improvement in symptoms. Presents for further evaluation. - Related Data Home Medications Medication Instructions Recorded Confirmed Acetaminophen [Tylenol Extra 500 mg PO HS 10/24/22 10/14/23 Strength] Ascorbic Acid [Vitamin C] 1,000 mg PO DAILY 10/24/22 10/14/23 Atorvastatin [Lipitor] 80 mg PO HS 10/24/22 10/14/23 Glucosamine Sulfate 1,000 mg PO HS 10/24/22 10/14/23 Levothyroxine Sodium [Synthroid] 175 mcg PO DAILY 10/24/22 10/10/23 Multivit,Calc,Min/FA/K1/Lycop 1 tab PO DAILY 10/24/22 10/14/23 [One-A-Day Men's Complete Tab] Rivaroxaban [Xarelto] 20 mg PO HS 10/24/22 10/14/23 Tamsulosin [Flomax] 0.4 mg PO DAILY 10/24/22 10/10/23 amLODIPine [Norvasc] 10 mg PO HS 10/24/22 10/14/23 ramipriL 10 mg PO DAILY 10/24/22 10/10/23 traMADol HCL 50 mg PO Q6H PRN 12/06/22 10/14/23 Isosorbide Mononitrate [Isosorbide 60 mg PO DAILY 10/10/23 10/10/23 Mononitrate ER] Aspirin 325 mg PO ONCE 10/14/23 10/14/23 Allergies Allergy/AdvReac Type Severity Reaction Status Date / Time ciprofloxacin [From Cipro] Allergy TROUBLE Verified 10/29/23 03:48 SWALLOWING Review of Systems ROS Statement: Those systems with pertinent positive or pertinent negative responses have been documented in the HPI. Review of Systems: CONST: Denies fever EYES: Denies blurry vision ENT: Denies nasal congestion C/V: Endorses substernal chest pain RESP: Endorses cough, congestion GI: Denies abdominal pain : Denies dysuria SKIN: Denies rash. MSK: Denies joint pain. NEURO: Denies headache ROS Other: All systems not noted in ROS Statement are negative. Past Medical History Past Medical History: Atrial Fibrillation, Cancer, Hyperlipidemia, Hypertension, Prostate Disorder, Thyroid Disorder, Vascular Disorder Additional Past Medical History / Comment(s): MELANOMA ON BACK, recent stress test, echo, hx. kidney stones, spinal stenosis lower back History of Any Multi-Drug Resistant Organisms: MRSA Date of last positivie culture/infection: 11/18/22 MDRO Source:: blood Past Surgical History: Appendectomy, Coronary Bypass/CABG, Heart Catheterization, Hernia Repair, Orthopedic Surgery, Tonsillectomy Additional Past Surgical History / Comment(s): QUAD BYPASS-2010 ,COLONOSCOPY X 3 ,MELANOMA REMOVED FROM BACK. ORIF RT WRIST ,TITANIUM PLATE LT SHOULDER, stento lower right iliac artery. NUMEROUS HERNIA REPAIRS ,DALIA Past Anesthesia/Blood Transfusion Reactions: No Reported Reaction Past Psychological History: Anxiety Smoking Status: Former smoker Past Alcohol Use History: None Reported Past Drug Use History: None Reported - Past Family History Mother Family Medical History: No Reported History General Exam - General Exam Comments Initial Comments: General: Appears in no acute distress. HEAD: Normal with no signs of head trauma. EYES: PERRLA, EOMI, conjunctiva normal, no discharge. ENT: Hearing grossly intact, normal oropharynx. RESPIRATORY: Mostly clear breath sounds bilaterally. No obvious wheezing. Hypoxic on room air at 91%. C/V: Regular rate and rhythm. S1 and S2 auscultated, no edema, peripheral pulses 2+ and intact throughout ABD: Abd is soft, nontender, nondistended EXT: Normal range of motion, no obvious deformity SKIN: No rashes or lesions observed on exposed skin. NEURO: Alert and oriented x 4. Limitations: no limitations Course Vital Signs 10/29/23 10/29/23 10/29/23 03:49 05:20 05:25 Temperature 98.1 F Pulse Rate 76 71 73 Respiratory 18 18 Rate Blood Pressure 111/67 100/67 O2 Sat by Pulse 91 L 100 Oximetry 10/29/23 10/29/23 05:30 06:15 Temperature Pulse Rate 75 71 Respiratory 18 Rate Blood Pressure 97/53 O2 Sat by Pulse 92 L Oximetry Medical Decision Making - Medical Decision Making Was pt. sent in by a medical professional or institution (, PA, [facility], urgent care, hospital, or [facility]...) When possible be specific @ -No Did you speak to anyone other than the patient for history (EMS, parent, family, police, friend...)? What history was obtained from this source @ -No Did you review nursing and triage notes (agree or disagree)? Why? @ -I reviewed and agree with nursing and triage notes Were old charts reviewed (outside hosp., previous admission, EMS record, old EKG, old radiological studies, urgent care reports/EKG's, [facility] records)? Report findings @ -Previous charts reviewed from October 14, 2023 including heart catheterization. No recent EKG for comparison. Heart catheterization revealed occlusion of one of the bypass grafts. Most recent EKG from October 2022 shows no evidence of left bundle branch block. Differential Diagnosis (chest pain, altered mental status, abdominal pain women, abdominal pain men, vaginal bleeding, weakness, fever, dyspnea, syncope, hea dache, dizziness, GI bleed, back pain, seizure, CVA, palpatations, mental health, musculoskeletal)? @ -Differential Chest Pain: Stable Angina, Unstable Angina, STEMI, NSTEMI Aortic Dissection, Pneumothorax, Musculoskeletal, Esophageal Spasm GERD, Cholecystitis, Pancreatitis, Zoster, this is not meant to be an all-inclusive list. Differential Dyspnea: Coronary syndrome, arrhythmia, tamponade, asthma, COPD, pulmonary embolism, pneumonia, pneumothorax, pulmonary effusion, anaphylaxis, diabetic ketoacidosis, flailed chest, pulmonary contusion, diaphragmatic rupture, anemia, neuromuscular, this is not meant to be an all-inclusive list. EKG interpreted by me (3pts min.). @ -As above X-rays interpreted by me (1pt min.). @ -Chest x-ray shows findings concerning for pleural effusions as well as pulmonary vascular congestion. CT interpreted by me (1pt min.). @ -None done U/S interpreted by me (1pt. min.). @ -None done What testing was considered but not performed or refused? (CT, X-rays, U/S, labs)? Why? @ -None What meds were considered but not given or refused? Why? @ -None Did you discuss the management of the patient with other professionals (professionals i.e. , PA, CARROTER, lab, RT, psych nurse, social studies teacher, hospitality recruiter, teacher, structural engineering drafting officer, case hardener)? Give summary @ - I did speak with Dr. Delcid of cardiology who reviewed the EKG and agrees there no evidence for need for emergent heart cath at this time was in agreement plan for workup. I updated him again of the elevated troponin. He expressed understanding was in agreement the plan for heparin for NSTEMI and requested patient be made n.p.o. Spoke with admitting physician, Dr. Salas who accepted the admission. Was smoking cessation discussed for >3mins.? @ -No Was critical care preformed (if so, how long)? @ -yes, 31 minutes Were there social determinants of health that impacted care today? How? (Jake elessness, low income, unemployed, alcoholism, drug addiction, transportation, low edu. Level, literacy, decrease access to med. care, [facility], rehab)? @ -No Was there de-escalation of care discussed even if they declined (Discuss DNR or withdrawal of care, Hospice)? DNR status @ -No What co-morbidities impacted this encounter? (DM, HTN, Smoking, COPD, CAD, Cancer, CVA, ARF, Chemo, Hep., AIDS, mental health diagnosis, sleep apnea, morbid obesity)? @ -CABG, CAD, A-fib on Xarelto Was patient admitted / discharged? Hospital course, mention meds given and route, prescriptions, significant lab abnormalities, going to OR and other pertinent info. @ -Patient presents emergency department complaining of chest pain, shortness of breath. Workup started in triage. I evaluated the patient in triage after seeing EKG with new onset left bundle branch block. Symptoms seem to be somewhat chronic over the last week or so. We will obtain cardiopulmonary workup as well as infectious labs for upper respiratory. Patient was in agreement this plan. Vital signs within acceptable limits except for mild hypoxia. He will be placed on 2 L nasal cannula. EKG as stated above shows new onset left bundle branch block. I did speak with Dr. Delcid of cardiology who reviewed the EKG and agrees there no evidence for need for emergent heart cath at this time was in agreement plan for workup. Chest x-ray shows findings concerning for pleural effusions as well as as pulmonary vascular congestion. Labs remarkable for troponin of 29.7. BNP of 14,000. Patient be started on a heparin drip. He already received aspirin. Clinically is unchanged. Vital signs remained within acceptable limits at this time. I discussed results with patient and he will be admitted to the hospital. I spoke with cardiology again regarding the elevated troponin and Dr. Delcid was in agreement with the above plan. He requested patient be made NPO. Spoke with admitting physician, Dr. Salas who accepted the admission. Undiagnosed new problem with uncertain prognosis? @ -No Drug Therapy requiring intensive monitoring for toxicity (Heparin, Nitro, Insulin, Cardizem)? @ -Heparin Were any procedures done? @ -No Diagnosis/symptom? @ -NSTEMI, left bundle branch block, pleural effusions, hypoxia Acute, or Chronic, or Acute on Chronic? @ -Acute Uncomplicated (without systemic symptoms) or Complicated (systemic symptoms)? @ -Complicated Side effects of treatment? @ -None Exacerbation, Progression, or Severe Exacerbation] @ -No Poses a threat to life or bodily function? @ -Yes - Lab Data Result diagrams: 10/29/23 04:05 10/29/23 04:05 Lab Results 10/29/23 10/29/23 10/29/23 Range/Units 04:05 04:05 04:05 WBC 11.6 H (3.8-10.6) k/uL RBC 4.45 (4.30-5.90) m/uL Hgb 13.3 (13.0-17.5) gm/dL Hct 40.6 (39.0-53.0) % MCV 91.3 (80.0-100.0) fL MCH 29.9 (25.0-35.0) pg MCHC 32.8 (31.0-37.0) g/dL RDW 12.8 (11.5-15.5) % Plt Count 221 (150-450) k/uL MPV 8.7 Neutrophils % 86 % Lymphocytes % 7 % Monocytes % 5 % Eosinophils % 1 % Basophils % 0 % Neutrophils # 9.9 H (1.3-7.7) k/uL Lymphocytes # 0.8 L (1.0-4.8) k/uL Monocytes # 0.6 (0-1.0) k/uL Eosinophils # 0.1 (0-0.7) k/uL Basophils # 0.0 (0-0.2) k/uL PT 15.7 H (10.0-12.5) sec INR 1.5 H (<1.2) APTT 40.2 H (22.0-30.0) sec Sodium 134 L (137-145) mmol/L Potassium 4.2 (3.5-5.1) mmol/L Chloride 99 (98-107) mmol/L Carbon Dioxide 25 (22-30) mmol/L Anion Gap 10 mmol/L BUN 34 H (9-20) mg/dL Creatinine 0.97 (0.66-1.25) mg/dL Est GFR (CKD-EPI)AfAm 90 (>60 ml/min/1.73 sqM) Est GFR (CKD-EPI)NonAf 78 (>60 ml/min/1.73 sqM) Glucose 110 H (74-99) mg/dL Plasma Lactic Acid Sheng (0.7-2.0) mmol/L Calcium 9.0 (8.4-10.2) mg/dL Total Bilirubin 1.5 H (0.2-1.3) mg/dL AST 254 H (17-59) U/L ALT 53 H (4-49) U/L Alkaline Phosphatase 104 (38-126) U/L Troponin I (0.000-0.034) ng/mL NT-Pro-B Natriuret Pep 23144 pg/mL Total Protein 6.9 (6.3-8.2) g/dL Albumin 3.9 (3.5-5.0) g/dL Influenza Type A (PCR) (Not Detectd) Influenza Type B (PCR) (Not Detectd) RSV (PCR) (Not Detectd) SARS-CoV-2 (PCR) (Not Detectd) 10/29/23 10/29/23 10/29/23 Range/Units 04:05 04:05 04:31 WBC (3.8-10.6) k/uL RBC (4.30-5.90) m/uL Hgb (13.0-17.5) gm/dL Hct (39.0-53.0) % MCV (80.0-100.0) fL MCH (25.0-35.0) pg MCHC (31.0-37.0) g/dL RDW (11.5-15.5) % Plt Count (150-450) k/uL MPV Neutrophils % % Lymphocytes % % Monocytes % % Eosinophils % % Basophils % % Neutrophils # (1.3-7.7) k/uL Lymphocytes # (1.0-4.8) k/uL Monocytes # (0-1.0) k/uL Eosinophils # (0-0.7) k/uL Basophils # (0-0.2) k/uL PT (10.0-12.5) sec INR (<1.2) APTT (22.0-30.0) sec Sodium (137-145) mmol/L Potassium (3.5-5.1) mmol/L Chloride (98-107) mmol/L Carbon Dioxide (22-30) mmol/L Anion Gap mmol/L BUN (9-20) mg/dL Creatinine (0.66-1.25) mg/dL Est GFR (CKD-EPI)AfAm (>60 ml/min/1.73 sqM) Est GFR (CKD-EPI)NonAf (>60 ml/min/1.73 sqM) Glucose (74-99) mg/dL Plasma Lactic Acid Sheng 1.6 (0.7-2.0) mmol/L Calcium (8.4-10.2) mg/dL Total Bilirubin (0.2-1.3) mg/dL AST (17-59) U/L ALT (4-49) U/L Alkaline Phosphatase (38-126) U/L Troponin I 29.700 H* (0.000-0.034) ng/mL NT-Pro-B Natriuret Pep pg/mL Total Protein (6.3-8.2) g/dL Albumin (3.5-5.0) g/dL Influenza Type A (PCR) Not Detected (Not Detectd) Influenza Type B (PCR) Not Detected (Not Detectd) RSV (PCR) Not Detected (Not Detectd) SARS-CoV-2 (PCR) Not Detected (Not Detectd) - EKG Data -: EKG Interpreted by Ne EKG Comments: 12-lead Electrocardiogram Interpretation Note EKG was reviewed and interpreted by myself. 12-lead ECG performed at 0359 is interpreted by me as revealing A-fib with new onset left bundle branch block at a rate of 77 beats per minute. Left axis deviation. QRS durations 198 ms, QTc is 444 ms.. There were no ST or T wave abnormalities to suggest myocardial ischemia or injury. R wave progression across the precordium was delayed.. Critical Care Time Critical Care Time: Yes Total Critical Care Time: 31 Disposition Clinical Impression: NSTEMI (non-ST elevated myocardial infarction), Pleural effusion, Hypoxia, Left bundle branch block Disposition: ADMITTED IP TO THIS HOSP Condition: Serious Time of Disposition: 06:01
[2023-10-29] MEDS: ASPIRIN 81 MG PO STA (05:11)
[2023-10-29] MEDS: IPRATROPIUM-ALBUTEROL 3 ML NEB INHALATION STA (05:20)
[2023-10-29] MEDS ORDERED: HEPARIN SODIUM 1,000 UN/ML (10ML VL) IV PRN (05:38)
[2023-10-29] MEDS: HEPARIN SOD,PORK IN 0.45% NACL 25,000 UNIT in 0.45% NACL 1 250ML.BAG IV SCH (05:52)
[2023-10-29] MEDS: HEPARIN SODIUM 1,000 UN/ML (10ML VL) IV ONE (05:53)
[2023-10-29] MEDS ORDERED: NALOXONE 0.4 MG/ML 1 ML VIAL IV PRN (06:01)
[2023-10-29] MEDS: FUROSEMIDE 10 MG/ML 4 ML VIAL IV STA (06:11)
--- NOTE | 2023-10-29 06:56 | XR ---
EXAMINATION TYPE: XR chest 2V DATE OF EXAM: 10/29/2023 COMPARISON: 10/28/2023 INDICATION: Difficulty breathing TECHNIQUE: Frontal and lateral views of the chest are obtained. FINDINGS: The heart size is normal. The pulmonary vasculature is prominent. Bibasilar infiltrates are present. Deonte B lines are present.. IMPRESSION: 1. Infiltrates in the mid and lower lung kunz bilaterally, Correlate for pulmonary edema. Subsegmen cristofer bibasilar atelectasis could be superimposed.
[2023-10-29] MEDS ORDERED: ALPRAZolam 0.25 MG TAB PO PRN (08:23)
[2023-10-29] MEDS ORDERED: NITROGLYCERIN SL TABS 0.4 MG TAB SUBLINGUAL PRN (08:23)
[2023-10-29] MEDS ORDERED: ALBUTEROL HFA INHALER INHALATION PRN (08:25)
[2023-10-29] MEDS: LEVOTHYROXINE 75 MCG TAB PO SCH (09:58)
[2023-10-29] MEDS: LEVOTHYROXINE 100 MCG TAB PO SCH (09:58)
[2023-10-29] MEDS: TAMSULOSIN 0.4 MG CAP.ER.24H PO SCH (09:58)
--- NOTE | 2023-10-29 13:19 | P.CRDCN ---
History of Present Illness Consult date: 10/29/23 Reason for Consult (text): NSTEMI, LBBB History of present illness: This is a 72-year-old male patient of Dr. Florencio Elizabeth with past medical history of coronary artery bypass grafting four-vessel done at [facility] in 2008 with MAGAÑA to LAD and diagonal, saphenous vein graft to PDA, saphenous vein graft to the obtuse marginal branch, paroxysmal atrial fibrillation on Xarelto, aortic valve stenosis, hypertension, dyslipidemia, moderate bilateral carotid stenosis, peripheral artery disease status post right iliac stenting. We have been asked to evaluate the patient for non-ST elevated DE and left bundle branch block. Patient recently underwent cardiac catheterization on October 13, see details below. Patient states he has been fighting some type of an infection recently and has been on doxycycline. According to his partner, patient has had fever, fatigue, lethargy but this morning he had sudden onset of shortness of breath. The shortness of breath started while he was sleeping. He denies having any chest pain. Patient came into the emergency center for further evaluation. He is status post IV Lasix x 1 dose and started on heparin drip. His last dose of Xarelto was last evening. Patient was last seen in the office on 10/01/2023 at which time he was found to have worsening of his LV function with abnormal nuclear scan and patient was advised to undergo cardiac catheterization. This was performed by Dr. Bobby on May 16 which revealed severe moapa CAD with 100% left main stenosis, 100% RCA stenosis. Patent MAGAÑA to LAD/diagonal, SVG to PDA, occluded SVG to OM1. Normal left-sided filling pressures. 34+ aortic insufficiency. Mild aortic stenosis. Plan at that time for aggressive risk factor modification and medical management. Patient states that he has had some mild chronic chest pain that seem to recur about 1 week ago. He had not had the same pain for 1 year. His partner also noted the patient's blood pressure has been low over the past week. Patient also complains of orthopnea. Blood pressure 97/57, heart rate 66, pulse ox 96% on room air, afebrile. EKG: #1 accelerated idioventricular rhythm, #[address] depression lateral precordial leads Chest x-ray: Infiltrates in the mid and lower lung kunz bilaterally. Correlate for pulmonary edema. Subsegmental bibasilar atelectasis could be superimposed. Laboratory studies: WBC 11.7, hemoglobin 13.3. BUN 34 creatinine 0.97, sodium 134, potassium 4.2. Troponins 29.7 and 27.3. proBNP 14,200. Influenza A, influenza B, RSV, COVID-19 not detected. Home cardiac medications: Amlodipine 10 mg at bedtime, atorvastatin 80 mg at bedtime, Imdur 60 mg daily, ramipril 10 mg daily, Xarelto 20 mg at bedtime, also on levothyroxine 175 mcg daily. DALIA performed 04/2021 performed at [facility] in [facility] rida revea and continue medical treatment.led normal LV systolic function, no evidence of left atrial appendage thrombus, no PFO, ASD or in chair atrial septal aneurysm. No pericardial effusion. Mild to moderate aortic regurgitation, trivial mitral regurgitation. Left heart catheterization performed on 10/14/2023 revealed severe moapa coronary artery disease with 100% left main stenosis, 100% RCA stenosis, patent MAGAÑA to LAD and diagonal, SVG to PDA, occluded SVG to OM1. Normal left-sided filling pressures. 34+ aortic insufficiency. Mild aortic stenosis. Echocardiogram performed in the office on 08/22/2023 revealed EF of 45 to 50%, moderate left ventricular hypertrophy. Moderate to severe aortic regurgitation and mild to moderate aortic stenosis. Mild to moderate mitral regurgitation, mild tricuspid regurgitation. Pulmonary artery systolic pressure 49 mmHg. Mild pulmonic regurgitation. Review Of Systems: At the time of my exam: CONSTITUTIONAL: Denies fever or chills. Generalized weakness HEENT: Denies blurred vision, vision changes, or eye pain. Denies hemoptysis CARDIOVASCULAR: Denies chest pain. Denies orthopnea. Denies PND. Denies palpitations RESPIRATORY: Denies shortness of breath. GASTROINTESTINAL: Denies abdominal pain. Denies nausea or vomiting. HEMATOLOGIC: Denies bleeding disorders. GENITOURINARY: Denies any blood in urine. SKIN: Denies puritis. Denies rash. Physical examination: Gen: This is a 72-year-old male with no acute distress VS: reviewed HEENT: Head is atraumatic, normocephalic. Pupils equal, round. Sclerae is anicteric. NECK: Supple. No JVD. LUNGS: Clear to auscultation. No wheezes or rhonchi. No intercostal retractions. HEART: Regular rate and rhythm. No murmur. ABDOMEN: Soft No tenderness. EXTREMITIES: No pedal edema. No calf tenderness. NEUROLOGICAL: Patient is awake, alert and oriented x3. Assessment: Non-ST elevated myocardial infarction History of coronary artery disease status post CABG four-vessel Paroxysmal atrial fibrillation on Xarelto Aortic valve stenosis Hypertension Dyslipidemia Moderate bilateral pleural carotid stenosis Peripheral artery disease status post right iliac stenting Plan: Resume patient's home cardiac medications with the following changes Hold amlodipine, Imdur, and ramipril due to low blood pressure Reduce atorvastatin to 40 mg at bedtime due to abnormal liver function test Hold Xarelto Continue patient on heparin drip Patient will be scheduled for cardiac catheterization with Dr. Bobby tomorrow N.p.o. after midnight Obtain repeat 2-D echocardiogram and Doppler study to assess cardiac structure and function Further recommendations to follow based upon clinical course Thank you kindly for this consultation. Nurse practitioner note has been reviewed, I agree with documented findings and plan of care. Patient was seen and examined. Past Medical History Past Medical History: Atrial Fibrillation, Cancer, Hyperlipidemia, Hypertension, Prostate Disorder, Thyroid Disorder, Vascular Disorder Additional Past Medical History / Comment(s): MELANOMA ON BACK, recent stress test, echo, hx. kidney stones, spinal stenosis lower back History of Any Multi-Drug Resistant Organisms: MRSA Date of last positivie culture/infection: 11/18/22 MDRO Source:: blood Past Surgical History: Appendectomy, Coronary Bypass/CABG, Heart Catheterization, Hernia Repair, Orthopedic Surgery, Tonsillectomy Additional Past Surgical History / Comment(s): QUAD BYPASS-2010 ,COLONOSCOPY X 3 ,MELANOMA REMOVED FROM BACK. ORIF RT WRIST ,TITANIUM PLATE LT SHOULDER, stento lower right iliac artery. NUMEROUS HERNIA REPAIRS ,DALIA Past Anesthesia/Blood Transfusion Reactions: No Reported Reaction Past Psychological History: Anxiety Smoking Status: Former smoker Past Alcohol Use History: None Reported Past Drug Use History: None Reported - Past Family History Mother Family Medical History: No Reported History Medications and Allergies Home Medications Medication Instructions Recorded Confirmed Type Acetaminophen [Tylenol Extra 500 mg PO HS 10/24/22 10/29/23 History Strength] Ascorbic Acid [Vitamin C] 1,000 mg PO DAILY 10/24/22 10/29/23 History Atorvastatin [Lipitor] 80 mg PO HS 10/24/22 10/29/23 History Glucosamine Sulfate 1,000 mg PO HS 10/24/22 10/29/23 History Multivit,Calc,Min/FA/K1/Lycop 1 tab PO DAILY 10/24/22 10/29/23 History [One-A-Day Men's Complete Tab] Rivaroxaban [Xarelto] 20 mg PO HS 10/24/22 10/29/23 History Tamsulosin [Flomax] 0.4 mg PO DAILY 10/24/22 10/29/23 History amLODIPine [Norvasc] 10 mg PO HS 10/24/22 10/29/23 History ramipriL 10 mg PO DAILY 10/24/22 10/29/23 History Isosorbide Mononitrate [Isosorbide 60 mg PO DAILY 10/10/23 10/29/23 History Mononitrate ER] Albuterol Sulfate [Albuterol 1 - 2 puff INHALATION RT-QID PRN 10/29/23 10/29/23 History Sulfate Hfa] Doxycycline [Vibramycin] 100 mg PO BID 10/29/23 10/29/23 History Levothyroxine Sodium [Synthroid] 175 mcg PO DAILY 10/29/23 10/29/23 History Allergies Allergy/AdvReac Type Severity Reaction Status Date / Time ciprofloxacin [From Cipro] Allergy TROUBLE Verified 10/29/23 08:17 SWALLOWING Physical Exam Vitals: Vital Signs Temp Pulse Resp BP Pulse Ox 10/29/23 12:03 98.2 F 66 16 116/61 95 10/29/23 09:59 66 18 97/57 96 10/29/23 06:54 103/52 10/29/23 06:15 71 18 97/53 92 L 10/29/23 05:30 75 10/29/23 05:25 73 18 100/67 100 10/29/23 05:20 71 10/29/23 03:49 98.1 F 76 18 111/67 91 L Intake and Output 10/28/23 10/29/23 10/29/23 22:59 06:59 14:59 Other: Weight 91.626 kg Results 10/29/23 04:05 10/29/23 04:05 Cardiac Enzymes 10/29/23 10/29/23 10/29/23 Range/Units 04:05 04:05 08:33 AST 254 H (17-59) U/L Troponin I 29.700 H* 27.300 H* (0.000-0.034) ng/mL Coagulation 10/29/23 10/29/23 Range/Units 04:05 11:41 PT 15.7 H (10.0-12.5) sec APTT 40.2 H 49.4 H (22.0-30.0) sec CBC 10/29/23 Range/Units 04:05 WBC 11.6 H (3.8-10.6) k/uL RBC 4.45 (4.30-5.90) m/uL Hgb 13.3 (13.0-17.5) gm/dL Hct 40.6 (39.0-53.0) % Plt Count 221 (150-450) k/uL Comprehensive Metabolic Panel 10/29/23 Range/Units 04:05 Sodium 134 L (137-145) mmol/L Potassium 4.2 (3.5-5.1) mmol/L Chloride 99 (98-107) mmol/L Carbon Dioxide 25 (22-30) mmol/L BUN 34 H (9-20) mg/dL Creatinine 0.97 (0.66-1.25) mg/dL Glucose 110 H (74-99) mg/dL Calcium 9.0 (8.4-10.2) mg/dL AST 254 H (17-59) U/L ALT 53 H (4-49) U/L Alkaline Phosphatase 104 (38-126) U/L Total Protein 6.9 (6.3-8.2) g/dL Albumin 3.9 (3.5-5.0) g/dL Current Medications Generic Name Dose Route Start Last Admin Trade Name Freq PRN Reason Stop Dose Admin Alprazolam 0.25 mg 10/29/23 08:23 Alprazolam 0.25 Mg Tab PO Q6HR PRN Mild Anxiety Alprazolam 0.5 mg 10/29/23 08:23 Alprazolam 0.5 Mg Tab PO Q6HR PRN Moderate Anxiety Aspirin 325 mg 10/30/23 06:00 Aspirin 325 Mg Tab PO 10/30/23 06:01 ONCE ONE Atorvastatin Calcium 80 mg 10/30/23 06:00 Atorvastatin 80 Mg Tab PO 10/30/23 06:01 ONCE ONE Atorvastatin Calcium 40 mg 10/29/23 21:00 Atorvastatin 40 Mg Tab PO HS PIERCE Heparin Sodium (Porcine) 0 unit 10/29/23 05:38 Heparin Sodium 1,000 Un/Ml (10ml Vl) IV PER PROTOCOL PRN Low PTT Protocol Heparin Sodium/Sodium Chloride 250 mls @ 9.996 mls/hr 10/29/23 05:45 10/29/23 05:52 25,000 unit/ Sodium Chloride IV 10.91 units/kg/hr .Q24H PIERCE 9.996 mls/hr Administration Protocol 10.91 UNITS/KG/HR Heparin Sodium (Porcine) 10, 1,001 mls @ 999 mls/hr 10/30/23 07:00 000 unit/ Sodium Chloride IRRIGATION 10/30/23 23:00 ONCE PRN INTRA-OP Heparin Sodium (Porcine) 2,500 250.5 mls @ 250 mls/hr 10/30/23 07:00 unit/ Sodium Chloride IRRIGATION 10/30/23 23:00 ONCE PRN INTRA-OP Levothyroxine Sodium 100 mcg 10/29/23 09:00 10/29/23 09:58 Levothyroxine 100 Mcg Tab PO Not Given DAILY@0630 [facility] Levothyroxine Sodium 75 mcg 10/29/23 09:00 10/29/23 09:58 Levothyroxine 75 Mcg Tab PO Not Given DAILY@0630 [facility] Naloxone HCl 0.2 mg 10/29/23 06:01 Naloxone 0.4 Mg/Ml 1 Ml Vial IV Q2M PRN Opioid Reversal Nitroglycerin 0.4 mg 10/29/23 05:36 Nitroglycerin Sl Tabs 0.4 Mg Tab SUBLINGUAL Q5M PRN Chest Pain Tamsulosin HCl 0.4 mg 10/29/23 09:00 10/29/23 09:58 Tamsulosin 0.4 Mg Cap.Er.24h PO Not Given DAILY PIERCE Intake and Output 10/28/23 10/29/23 10/29/23 22:59 06:59 14:59 Other: Weight 91.626 kg 10/29/23 04:05 10/29/23 04:05
--- NOTE | 2023-10-29 14:22 | P.CNPUL ---
History of Present Illness Consult date: 10/29/23 Requesting physician: Buddy Salas Reason for consult: dyspnea, chest pain Chief complaint: Chest pain and shortness of breath. History of present illness: Pulmonary consult dated October 29, 2023. 72-year-old male who was seen in the emergency department, room 4. He apparently has not been feeling well for about a week or so prior to admission. He apparently came with complaints of shortness of breath, chest pain, cough, chest congestion, and generally not feeling well. He was seen in the emergency department. The patient was on 2 L of oxygen. He was on IV heparin as well. According to the nurse practitioner who works with cardiology, the patient is scheduled for cardiac catheterization tomorrow. He has a history of a recent catheterization, done on October 13, which revealed severe three affiliated CAD as well as occluded SVG to OM1 of his previous bypass grafting. He is on blood thinner for his atrial fibrillation, and has a prior history of a MRSA infection. The patient complains of substernal chest discomfort, which has been going on for at least a week or so. According to a family member, the patient was also having fever. Other medical history includes hyperlipidemia, hypertension, hypothyroidism, melanoma, and chronic back pain, with spinal stenosis. He also has a history of kidney stones, previous bypass grafting, and heart catheterization. Current labs include a white count 11.6, hemoglobin 13.3, hematocrit 40.6, platelet count 2 21,000. PTT is 49.4. Sodium 134, potassium 4.2, chloride 99, CO2 25, anion gap 10, BUN 34, and creatinine 0.97. Glucose is 110. Troponins were 29.7 27.3 and 25.3. N-terminal proBNP was 14,200. Studies for influenza, RSV, coronavirus were all negative. Chest x-ray was consistent with pulmonary edema. Review of Systems REVIEW OF SYSTEMS: CONSTITUTIONAL: Fever for 7 days. NEUROLOGIC: [ Negative.] HEENT: [ Negative.] CARDIAC: Substernal chest discomfort. PULMONARY: Shortness of breath. GI: [Negative.] : [Negative.] RHEUMATOLOGIC: [ Negative.] IMMUNOLOGIC: [ Negative.] ENDOCRINE: [Negative. ] DERMATOLOGIC: [Negative.] Past Medical History Past Medical History: Atrial Fibrillation, Cancer, Hyperlipidemia, Hypertension, Prostate Disorder, Thyroid Disorder, Vascular Disorder Additional Past Medical History / Comment(s): MELANOMA ON BACK, recent stress test, echo, hx. kidney stones, spinal stenosis lower back History of Any Multi-Drug Resistant Organisms: MRSA Date of last positivie culture/infection: 11/18/22 MDRO Source:: blood Past Surgical History: Appendectomy, Coronary Bypass/CABG, Heart Catheterization, Hernia Repair, Orthopedic Surgery, Tonsillectomy Additional Past Surgical History / Comment(s): QUAD BYPASS-2010 ,COLONOSCOPY X 3 ,MELANOMA REMOVED FROM BACK. ORIF RT WRIST ,TITANIUM PLATE LT SHOULDER, stento lower right iliac artery. NUMEROUS HERNIA REPAIRS ,DALIA Past Anesthesia/Blood Transfusion Reactions: No Reported Reaction Past Psychological History: Anxiety Smoking Status: Former smoker Past Alcohol Use History: None Reported Past Drug Use History: None Reported - Past Family History Mother Family Medical History: No Reported History Medications and Allergies Home Medications Medication Instructions Recorded Confirmed Type Acetaminophen [Tylenol Extra 500 mg PO HS 10/24/22 10/29/23 History Strength] Ascorbic Acid [Vitamin C] 1,000 mg PO DAILY 10/24/22 10/29/23 History Atorvastatin [Lipitor] 80 mg PO HS 10/24/22 10/29/23 History Glucosamine Sulfate 1,000 mg PO HS 10/24/22 10/29/23 History Multivit,Calc,Min/FA/K1/Lycop 1 tab PO DAILY 10/24/22 10/29/23 History [One-A-Day Men's Complete Tab] Rivaroxaban [Xarelto] 20 mg PO HS 10/24/22 10/29/23 History Tamsulosin [Flomax] 0.4 mg PO DAILY 10/24/22 10/29/23 History amLODIPine [Norvasc] 10 mg PO HS 10/24/22 10/29/23 History ramipriL 10 mg PO DAILY 10/24/22 10/29/23 History Isosorbide Mononitrate [Isosorbide 60 mg PO DAILY 10/10/23 10/29/23 History Mononitrate ER] Albuterol Sulfate [Albuterol 1 - 2 puff INHALATION RT-QID PRN 10/29/23 10/29/23 History Sulfate Hfa] Doxycycline [Vibramycin] 100 mg PO BID 10/29/23 10/29/23 History Levothyroxine Sodium [Synthroid] 175 mcg PO DAILY 10/29/23 10/29/23 History Allergies Allergy/AdvReac Type Severity Reaction Status Date / Time ciprofloxacin [From Cipro] Allergy TROUBLE Verified 10/29/23 08:17 SWALLOWING Physical Exam Osteopathic Statement: *. No significant issues noted on an osteopathic structural exam other than those noted in the History and Physical/Consult. Vitals: Vital Signs Temp Pulse Resp BP Pulse Ox 10/29/23 12:03 98.2 F 66 16 116/61 95 10/29/23 09:59 66 18 97/57 96 10/29/23 06:54 103/52 10/29/23 06:15 71 18 97/53 92 L 10/29/23 05:30 75 10/29/23 05:25 73 18 100/67 100 10/29/23 05:20 71 10/29/23 03:49 98.1 F 76 18 111/67 91 L Intake and Output 10/28/23 10/29/23 10/29/23 22:59 06:59 14:59 Other: Weight 91.626 kg No acute distress, oriented 3. Currently on nasal O2. Saturations are in the low 90s. HEENT examination is grossly unremarkable. Mucous membranes are moist. No oral lesions. Neck supple. Full range of motion. No adenopathy thyromegaly or neck vein distention. Cardiovascular examination reveals regular rhythm rate. S1-S2 normal. No S3 or S4. No discernible murmur noted. Heart rate 66 bpm. Lungs reveal scattered crackles. No rhonchi or wheezes. Breath sounds equal. Saturations are in the low 90s on 2 L. Abdomen soft bowel sounds are heard. No masses or tenderness. Extremities are intact. No cyanosis clubbing or edema. Skin is without rash or lesion. Neurologic examination is brief but nonfocal. Results - Laboratory Findings CBC and BMP: 10/29/23 04:05 10/29/23 04:05 PT/INR, D-dimer PT 15.7 sec (10.0-12.5) H 10/29/23 04:05 INR 1.5 (<1.2) H 10/29/23 04:05 Abnormal lab findings: Abnormal Labs 10/29/23 10/29/23 10/29/23 04:05 04:05 04:05 WBC 11.6 H Neutrophils # 9.9 H Lymphocytes # 0.8 L PT 15.7 H INR 1.5 H APTT 40.2 H Sodium 134 L BUN 34 H Glucose 110 H Total Bilirubin 1.5 H AST 254 H ALT 53 H Troponin I 10/29/23 10/29/23 10/29/23 04:05 08:33 11:41 WBC Neutrophils # Lymphocytes # PT INR APTT 49.4 H Sodium BUN Glucose Total Bilirubin AST ALT Troponin I 29.700 H* 27.300 H* 10/29/23 11:41 WBC Neutrophils # Lymphocytes # PT INR APTT Sodium BUN Glucose Total Bilirubin AST ALT Troponin I 25.300 H* - Diagnostic Findings Chest x-ray: image reviewed Assessment and Plan Assessment: Non-ST segment elevation myocardial infarction. History of CAD with previous four-vessel bypass grafting. Paroxysmal atrial fibrillation. Aortic valve stenosis. History of hypertension. Hyperlipidemia. Hypothyroidism. Peripheral artery disease. History of melanoma. Prior history of MRSA infection. Plan: Plan dated October 29, 2023. The patient is seen in the emergency department, room 4. The patient came in with complaints of fever, chest pain, and shortness of breath. His troponins were quite elevated. The patient likely has a non-ST segment elevation myocardial infarction. The patient had a recent cardiac catheterization, in early October. We will continue to follow along. Additional recommendations and suggestions are forthcoming. A procalcitonin level was ordered. The chest x- ray is consistent with CHF. The patient's N-terminal proBNP was quite elevated. The patient has no prior history of any lung disease. Time with Patient: Greater than 30
[2023-10-29] MEDS: IPRATROPIUM-ALBUTEROL 3 ML NEB INHALATION PRN (16:05)
--- NOTE | 2023-10-29 19:14 | P.HPIM ---
History of Present Illness H&P Date: 10/29/23 Chief Complaint: Chest pain with increased shortness of breath HISTORY OF PRESENT ILLNESS This is a 72-year-old male patient of Dr. Florencio Elizabeth with past medical history of coronary artery bypass graft 4 vessel done at [facility] in 2008 with MAGAÑA to LAD and diagonal, saphenous vein graft to PDA, saphenous vein graft to the obtuse marginal branch, paroxysmal atrial fibrillation on Xarelto, aortic valve stenosis aortic regurgitation, hypertension, dyslipidemia, moderate bilateral carotid stenosis, peripheral artery disease status post right iliac stenting, hypothyroidism, benign prostatic hypertrophy, melanoma resected from his back. Patient presented to the emergency department at [facility] after a week history of retrosternal chest pain associated with increased shortness of breath, he was seen recently in the office for what appears to be an upper respiratory tract infection associated with increased shortness of breath, had laboratory evaluation at that time that showed elevation of the C- reactive protein with normal ESR, blood cultures were negative because of the patient prior history of MRSA induced endocarditis, patient was not feeling well, he decided to go to the ER at 3:00 in the morning because of increased shortness of breath, he was seen in the emergency department he was found to have a pulmonary vascular congestion and he was found to have an elevated troponin at 29, patient did have a left heart catheterization that was done by Dr. Bobby on October 13 and that showed severe [place] CAD disease with 100% occlusion of the left main, 100% occlusion of the RCA, patent MAGAÑA to LAD and diagonal branch, patent SVG to the PDA, and occluded SVG to the obtuse marginal branch, at that time it was recommended for the patient to continue with medical management, he also was found to have aortic regurgitation 3-4+, patient was admitted to the hospital he was started on a heparin drip, and he was seen in consultation by cardiology as well as by pulmonary medicine it was recommended for the patient to go for left heart catheterization tomorrow morning. REVIEW OF SYSTEMS Constitutional: No fever, no chills, no night sweats. No weight change. No weakness, fatigue or lethargy. No daytime sleepiness. EENT: No headache. No blurred vision or double vision, no loss of vision. No loss of Hearing, no ringing in the ears, no dizziness. No nasal drainage or congestion. No epistaxis. No sore throat. Lungs: positive for shortness of breath, occasional cough, no sputum production. No wheezing. Cardiovascular: Reports midsternal chest pain, no lower extremity edema. No palpitations. No paroxysmal nocturnal dyspnea. No orthopnea. No lightheadedness or dizziness. No syncopal episodes. Abdominal: No abdominal pain. No nausea, vomiting. No diarrhea. No constipation. No bloody or tarry stools. No loss of appetite. Genitourinary: No dysuria, increased frequency, urgency. No urinary retention. Musculoskeletal: No myalgias. No muscle weakness, no gait dysfunction, no frequent falls. No back pain. No neck pain. Integumentary: No wounds, no lesions. No rash or pruritus. No unusual bruising. No change in hair or nails. Neurologic: No aphasia. No facial droop. No change in mentation. No head injury. No headache. No paralysis. No paresthesia. Psychiatric: No depression. No anxiety. No mood swings. Endocrine: No abnormal blood sugars. No weight change. No excessive sweating or thirst. No cold intolerance. MEDICAL HISTORY Coronary artery disease Paroxysmal atrial fibrillation Te[place]o valve stenosis Hypertension Hyperlipidemia Moderate bilateral carotid stenosis Peripheral artery disease status post iliac stenting Hypothyroidism Benign prostatic hypertrophy History of melanoma status post resection the mid thoracic area SURGICAL HISTORY Coronary artery bypass graft 4 vessel done at [facility] in 2008 with MAGAÑA to LAD and diagonal, saphenous vein graft to PDA, saphenous vein graft to the obtuse marginal branch Right iliac stenting Tonsillectomy Appendectomy Hernia repair DALIA Cardiac catheterization Colonoscopy 3 ORIF of the right wrist Titanium plate in the left shoulder SOCIAL HISTORY Patient has a remote history of tobacco use and quit 20 years ago. No illicit drug use, no alcohol abuse FAMILY HISTORY Father at age 77 from Parkinson's and CHF and [place]. Mother at age 94 with dementia. Patient has 2 brothers one has history of CABG 4 in the other has no major medical problems. Patient has 2 sisters one is a heavy smoker and drinker in the other one has no major medical problems. PHYSICAL EXAMINATION Gen: This is a 72-year-old male, laying down in bed in no apparent distress. HEENT: Head is atraumatic, normocephalic. Pupils equal, round. Sclerae is anicteric. NECK: Supple. No JVD. No lymphadenopathy. No thyromegaly. LUNGS: Clear to auscultation. No wheezes or rhonchi. No intercostal retractions. HEART: First heart sounds depressed, second heart sounds normal, other systolic ejection murmur 2/6 located in the left sternal border. ABDOMEN: Soft. Bowel sounds are present. No masses. No tenderness. EXTREMITIES: There is no pedal edema, no calf tenderness, dorsalis pedis +2 bilaterally. NEUROLOGICAL: Patient is awake, alert and oriented x3. Cranial nerves 2 through 12 are grossly intact, muscle power 5 out of 5 in upper and lower extremities bilaterally. ASSESSMENT AND PLAN 1. Non-ST elevation myocardial infarction. Continue patient on heparin drip, cardiac enzymes were elevated, troponin was about 29, continue aspirin 81 mg once every day, continue atorvastatin 80 mg once every day, cardiology consultation for left heart catheterization tomorrow morning. 2. History of coronary artery disease with 4 vessel CABG with recent left heart catheterization October 14, 2023 that showed patent MAGAÑA to LAD diagonal branch, patent SVG to PDA, and total occlusion of SVG to the obtuse marginal branch. Continue treatment as in previous paragraph. 3. Paroxysmal atrial fibrillation currently in a sinus rhythm. Continue heparin drip for now, hold off Xarelto as the patient is going for left heart catheterization tomorrow morning. 4. Hypertension hypertensive cardiovascular disease. Blood pressure appears to be soft at this time, patient will be taken off amlodipine as well as ramipril for now. 5. Hypothyroidism. Continue levothyroxine 175 mcg orally once every day, monitor the patient thyroid function test very closely. 6. Benign prostatic hypertrophy. Continue Flomax or 0.4 mg daily and monitor for urinary retention. 7. Hyperlipidemia. Continue atorvastatin 80 mg at bedtime. 8. Peripheral artery disease status post iliac stent. Stable at this time. Continue statin as well as aspirin for secondary prevention. 9. DVT prophylaxis. Continue patient on heparin drip. 10. GI prophylaxis. Start the patient on Protonix 40 mg orally once every day. 11. Admit to inpatient. Estimated length of stay 2 midnights. 12. Patient is full code. Past Medical History Past Medical History: Atrial Fibrillation, Cancer, Hyperlipidemia, Hypertension, Prostate Disorder, Thyroid Disorder, Vascular Disorder Additional Past Medical History / Comment(s): MELANOMA ON BACK, recent stress test, echo, hx. kidney stones, spinal stenosis lower back History of Any Multi-Drug Resistant Organisms: MRSA Date of last positivie culture/infection: 11/18/22 MDRO Source:: blood Past Surgical History: Appendectomy, Coronary Bypass/CABG, Heart Catheterization, Hernia Repair, Orthopedic Surgery, Tonsillectomy Additional Past Surgical History / Comment(s): QUAD BYPASS-2010 ,COLONOSCOPY X 3 ,MELANOMA REMOVED FROM BACK. ORIF RT WRIST ,TITANIUM PLATE LT SHOULDER, stento lower right iliac artery. NUMEROUS HERNIA REPAIRS ,DALIA Past Anesthesia/Blood Transfusion Reactions: No Reported Reaction Past Psychological History: Anxiety Smoking Status: Former smoker Past Alcohol Use History: None Reported Past Drug Use History: None Reported - Past Family History Mother Family Medical History: No Reported History Medications and Allergies Home Medications Medication Instructions Recorded Confirmed Type Acetaminophen [Tylenol Extra 500 mg PO HS 10/24/22 10/29/23 History Strength] Ascorbic Acid [Vitamin C] 1,000 mg PO DAILY 10/24/22 10/29/23 History Atorvastatin [Lipitor] 80 mg PO HS 10/24/22 10/29/23 History Glucosamine Sulfate 1,000 mg PO HS 10/24/22 10/29/23 History Multivit,Calc,Min/FA/K1/Lycop 1 tab PO DAILY 10/24/22 10/29/23 History [One-A-Day Men's Complete Tab] Rivaroxaban [Xarelto] 20 mg PO HS 10/24/22 10/29/23 History Tamsulosin [Flomax] 0.4 mg PO DAILY 10/24/22 10/29/23 History amLODIPine [Norvasc] 10 mg PO HS 10/24/22 10/29/23 History ramipriL 10 mg PO DAILY 10/24/22 10/29/23 History Isosorbide Mononitrate [Isosorbide 60 mg PO DAILY 10/10/23 10/29/23 History Mononitrate ER] Albuterol Sulfate [Albuterol 1 - 2 puff INHALATION RT-QID PRN 10/29/23 10/29/23 History Sulfate Hfa] Doxycycline [Vibramycin] 100 mg PO BID 10/29/23 10/29/23 History Levothyroxine Sodium [Synthroid] 175 mcg PO DAILY 10/29/23 10/29/23 History Allergies Allergy/AdvReac Type Severity Reaction Status Date / Time ciprofloxacin [From Cipro] Allergy TROUBLE Verified 10/29/23 08:17 SWALLOWING Physical Exam Vitals: Vital Signs Temp Pulse Resp BP Pulse Ox 10/29/23 18:20 73 16 113/73 95 10/29/23 16:19 70 10/29/23 16:12 68 18 103/66 100 10/29/23 16:05 78 10/29/23 15:18 67 18 111/57 97 10/29/23 12:03 98.2 F 66 16 116/61 95 10/29/23 09:59 66 18 97/57 96 10/29/23 06:54 103/52 10/29/23 06:15 71 18 97/53 92 L 10/29/23 05:30 75 10/29/23 05:25 73 18 100/67 100 10/29/23 05:20 71 10/29/23 03:49 98.1 F 76 18 111/67 91 L Intake and Output 10/29/23 10/29/23 10/29/23 06:59 14:59 22:59 Other: Weight 91.626 kg Results CBC & Chem 7: 10/29/23 04:05 10/29/23 04:05 Labs: Abnormal Lab Results - Last 24 Hours (Table) 10/29/23 10/29/23 10/29/23 Range/Units 04:05 04:05 04:05 WBC 11.6 H (3.8-10.6) k/uL Neutrophils # 9.9 H (1.3-7.7) k/uL Lymphocytes # 0.8 L (1.0-4.8) k/uL PT 15.7 H (10.0-12.5) sec INR 1.5 H (<1.2) APTT 40.2 H (22.0-30.0) sec Sodium 134 L (137-145) mmol/L BUN 34 H (9-20) mg/dL Glucose 110 H (74-99) mg/dL Total Bilirubin 1.5 H (0.2-1.3) mg/dL AST 254 H (17-59) U/L ALT 53 H (4-49) U/L Troponin I (0.000-0.034) ng/mL Procalcitonin (0.02-0.09) ng/mL 10/29/23 10/29/23 10/29/23 Range/Units 04:05 08:33 08:33 WBC (3.8-10.6) k/uL Neutrophils # (1.3-7.7) k/uL Lymphocytes # (1.0-4.8) k/uL PT (10.0-12.5) sec INR (<1.2) APTT (22.0-30.0) sec Sodium (137-145) mmol/L BUN (9-20) mg/dL Glucose (74-99) mg/dL Total Bilirubin (0.2-1.3) mg/dL AST (17-59) U/L ALT (4-49) U/L Troponin I 29.700 H* 27.300 H* (0.000-0.034) ng/mL Procalcitonin 0.19 H (0.02-0.09) ng/mL 10/29/23 10/29/23 Range/Units 11:41 11:41 WBC (3.8-10.6) k/uL Neutrophils # (1.3-7.7) k/uL Lymphocytes # (1.0-4.8) k/uL PT (10.0-12.5) sec INR (<1.2) APTT 49.4 H (22.0-30.0) sec Sodium (137-145) mmol/L BUN (9-20) mg/dL Glucose (74-99) mg/dL Total Bilirubin (0.2-1.3) mg/dL AST (17-59) U/L ALT (4-49) U/L Troponin I 25.300 H* (0.000-0.034) ng/mL Procalcitonin (0.02-0.09) ng/mL
[2023-10-29] MEDS ORDERED: ACETAMINOPHEN TAB 500 MG TAB PO SCH (21:00)
[2023-10-29] MEDS: ATORVASTATIN 40 MG TAB PO SCH (21:13)
[2023-10-29] MEDS: NITROGLYCERIN SL TABS 0.4 MG TAB SUBLINGUAL PRN (23:40)
[2023-10-29] MEDS: ACETAMINOPHEN TAB 325 MG TAB PO PRN (23:49)
[2023-10-30] MEDS: FUROSEMIDE 10 MG/ML 4 ML VIAL IV STA (02:40)
[2023-10-30] MEDS: ALPRAZolam 0.5 MG TAB PO PRN (02:41)
[2023-10-30] MEDS: ASPIRIN 325 MG TAB PO ONE (05:46)
[2023-10-30] MEDS: ATORVASTATIN 80 MG TAB PO ONE (05:47)
[2023-10-30 06:28] LABS: Basophils % (A) 0 %; Eosinophils % (A) 1 %; HCT 36.5 % (39.0-53.0); HGB 11.9 gm/dL (13.0-17.5); Lymphocytes # (A) 0.9 k/uL (1.0-4.8); Lymphocytes % (A) 12 %; MCH 30.5 pg (25.0-35.0); MCHC 32.5 g/dL (31.0-37.0); MCV 93.9 fL (80.0-100.0); Monocytes # (A) 0.4 k/uL (0-1.0); Monocytes % (A) 5 %; Neutrophils # (A) 6.2 k/uL (1.3-7.7); Neutrophils % (A) 81 %; Platelet Count 226 k/uL (150-450); RBC 3.89 m/uL (4.30-5.90); RDW 12.9 % (11.5-15.5); WBC 7.6 k/uL (3.8-10.6)
[2023-10-30 06:37] LABS: INR 1.1 (<1.2); Prothrombin Time 12.1 sec (10.0-12.5)
[2023-10-30 06:50] LABS: ALT 52 U/L (4-49); AST 153 U/L (17-59); African American GFR (CKD) >90 (>60 ml/min/1.73 sqM); Albumin 3.3 g/dL (3.5-5.0); Alkaline Phosphatase 102 U/L (38-126); Anion Gap 8 mmol/L; Blood Urea Nitrogen 36 mg/dL (9-20); Calcium 8.3 mg/dL (8.4-10.2); Carbon Dioxide 24 mmol/L (22-30); Chloride 101 mmol/L (98-107); Glucose 98 mg/dL (74-99); Non-African American GFR(CKD) 81 (>60 ml/min/1.73 sqM); Potassium 4.1 mmol/L (3.5-5.1); Sodium 133 mmol/L (137-145); Total Bilirubin 1.3 mg/dL (0.2-1.3); Total Protein 5.9 g/dL (6.3-8.2)
--- NOTE | 2023-10-30 09:33 | P.PN ---
Subjective Progress Note Date: 10/30/23 Reason for Consult (text): NSTEMI, LBBB History of present illness: This is a 72-year-old male patient of Dr. Florencio Elizabeth with past medical history of coronary artery bypass grafting four-vessel done at [facility] in 2008 with MAGAÑA to LAD and diagonal, saphenous vein graft to PDA, saphenous vein graft to the obtuse marginal branch, paroxysmal atrial fibrillation on Xarelto, aortic valve stenosis, hypertension, dyslipidemia, moderate bilateral carotid stenosis, peripheral artery disease status post right iliac stenting. We have been asked to evaluate the patient for non-ST elevated PR and left bundle branch block. Patient recently underwent cardiac catheterization on October 13, see details below. Patient states he has been fighting some type of an infection recently and has been on doxycycline. According to his partner, patient has had fever, fatigue, lethargy but this morning he had sudden onset of shortness of breath. The shortness of breath started while he was sleeping. He denies having any chest pain. Patient came into the emergency center for further evaluation. He is status post IV Lasix x 1 dose and started on heparin drip. His last dose of Xarelto was last evening. Patient was last seen in the office on 10/01/2023 at which time he was found to have worsening of his LV function with abnormal nuclear scan and patient was advised to undergo cardiac catheterization. This was performed by Dr. Bobby on May 16 which revealed severe [place] CAD with 100% left main stenosis, 100% RCA stenosis. Patent MAGAÑA to LAD/diagonal, SVG to PDA, occluded SVG to OM1. Normal left-sided filling pressures. 34+ aortic insufficiency. Mild aortic stenosis. Plan at that time for aggressive risk factor modification and medical management. Patient states that he has had some mild chronic chest pain that seem to recur about 1 week ago. He had not had the same pain for 1 year. His partner also noted the patient's blood pressure has been low over the past week. Patient also complains of orthopnea. Blood pressure 97/57, heart rate 66, pulse ox 96% on room air, afebrile. EKG: #1 accelerated idioventricular rhythm, #[address] depression lateral precordial leads Chest x-ray: Infiltrates in the mid and lower lung kunz bilaterally. Correlate for pulmonary edema. Subsegmental bibasilar atelectasis could be superimposed. Laboratory studies: WBC 11.7, hemoglobin 13.3. BUN 34 creatinine 0.97, sodium 134, potassium 4.2. Troponins 29.7 and 27.3. proBNP 14,200. Influenza A, influenza B, RSV, COVID-19 not detected. Home cardiac medications: Amlodipine 10 mg at bedtime, atorvastatin 80 mg at bedtime, Imdur 60 mg daily, ramipril 10 mg daily, Xarelto 20 mg at bedtime, also on levothyroxine 175 mcg daily. DALIA performed 04/2021 performed at [facility] in [facility] revea and continue medical treatment.led normal LV systolic function, no evidence of left atrial appendage thrombus, no PFO, ASD or in chair atrial septal aneurysm. No pericardial effusion. Mild to moderate aortic regurgitation, trivial mitral regurgitation. Left heart catheterization performed on 10/14/2023 revealed severe [place] coronary artery disease with 100% left main stenosis, 100% RCA stenosis, patent MAGAÑA to LAD and diagonal, SVG to PDA, occluded SVG to OM1. Normal left-sided filling pressures. 34+ aortic insufficiency. Mild aortic stenosis. Echocardiogram performed in the office on 08/22/2023 revealed EF of 45 to 50%, moderate left ventricular hypertrophy. Moderate to severe aortic regurgitation and mild to moderate aortic stenosis. Mild to moderate mitral regurgitation, mild tricuspid regurgitation. Pulmonary artery systolic pressure 49 mmHg. Mild pulmonic regurgitation. 10/29 Patient had episode of chest pain last evening and received nitroglycerin which seemed to help. He then tried to sleep but he developed shortness of breath and he was given 1 dose of IV Lasix. He states his shortness of breath was very similar to how he presented to the hospital. Blood pressure 101/63, heart rate 71, pulse ox 93% on 2 L nasal cannula. Patient did have a fever at midnight 101.1. Patient has been continued on IV heparin. Patient is scheduled for cardiac catheterization this morning with Dr. Bobby. Repeat blood work reveals hemoglobin 11.9, WBC 7.6. Sodium 133, potassium 4.1, BUN 36 and creatinine 0.94. Total bilirubin 1.3, AST 153, ALT 52. Physical examination: Gen: This is a 72-year-old male with no acute distress VS: reviewed HEENT: Head is atraumatic, normocephalic. Pupils equal, round. Sclerae is anicteric. NECK: Supple. No JVD. LUNGS: Clear to auscultation. No wheezes or rhonchi. No intercostal retractions. HEART: Regular rate and rhythm. No murmur. ABDOMEN: Soft No tenderness. EXTREMITIES: No pedal edema. No calf tenderness. NEUROLOGICAL: Patient is awake, alert and oriented x3. Assessment: Non-ST elevated myocardial infarction History of coronary artery disease status post CABG four-vessel Paroxysmal atrial fibrillation on Xarelto Aortic valve stenosis Hypertension Dyslipidemia Moderate bilateral pleural carotid stenosis Peripheral artery disease status post right iliac stenting Abnormal liver function test, improving Plan: Continue patient's home cardiac medications with the following changes Continue to hold amlodipine, Imdur, and ramipril due to low blood pressure Reduce atorvastatin to 40 mg at bedtime due to abnormal liver function test Hold Xarelto Continue patient on heparin drip Patient scheduled for cardiac catheterization with Dr. Bobby this morning N.p.o. Obtain repeat 2-D echocardiogram and Doppler study to assess cardiac structure and function Patient has been on good medical therapy for coronary artery disease and concerned that he failed well on high-dose statin. Would recommend the addition of PCSK9 inhibitor as an outpatient. Further recommendations to follow based upon clinical course Nurse practitioner note has been reviewed, I agree with documented findings and plan of care. Patient was seen and examined. Objective - Vital Signs Vital signs: Vital Signs Temp 98.9 F 10/30/23 03:09 Pulse 71 10/30/23 03:09 Resp 16 10/30/23 03:09 BP 101/63 10/30/23 03:09 Pulse Ox 93 L 10/30/23 03:09 FiO2 Intake & Output 10/29/23 10/30/23 10/30/23 18:59 06:59 18:59 Intake Total 779.071 Output Total 750 Balance 29.071 Weight 201.3 kg Intake: Intake, IV Titration 239.071 Amount Heparin Sod,Pork in 0.45% 239.071 NaCl 25,000 unit In 0.45 % NaCl 1 250ml.bag @ 10. 91 UNITS/KG/HR 9.996 mls/ hr IV .Q24H PIERCE Rx#: [id number] Oral 540 Output: Urine 750 Other: Voiding Method Urinal - Labs CBC & Chem 7: 10/30/23 05:37 10/30/23 05:37 Labs: Abnormal Lab Results - Last 24 Hours (Table) 10/29/23 10/29/23 10/29/23 Range/Units 08:33 08:33 11:41 RBC (4.30-5.90) m/uL Hgb (13.0-17.5) gm/dL Hct (39.0-53.0) % Lymphocytes # (1.0-4.8) k/uL APTT 49.4 H (22.0-30.0) sec Sodium (137-145) mmol/L BUN (9-20) mg/dL Calcium (8.4-10.2) mg/dL AST (17-59) U/L ALT (4-49) U/L Troponin I 27.300 H* (0.000-0.034) ng/mL Total Protein (6.3-8.2) g/dL Albumin (3.5-5.0) g/dL Procalcitonin 0.19 H (0.02-0.09) ng/mL 10/29/23 10/30/23 10/30/23 Range/Units 11:41 05:37 05:37 RBC 3.89 L (4.30-5.90) m/uL Hgb 11.9 L (13.0-17.5) gm/dL Hct 36.5 L (39.0-53.0) % Lymphocytes # 0.9 L (1.0-4.8) k/uL APTT (22.0-30.0) sec Sodium 133 L (137-145) mmol/L BUN 36 H (9-20) mg/dL Calcium 8.3 L (8.4-10.2) mg/dL AST 153 H (17-59) U/L ALT 52 H (4-49) U/L Troponin I 25.300 H* (0.000-0.034) ng/mL Total Protein 5.9 L (6.3-8.2) g/dL Albumin 3.3 L (3.5-5.0) g/dL Procalcitonin (0.02-0.09) ng/mL 10/30/23 Range/Units 05:37 RBC (4.30-5.90) m/uL Hgb (13.0-17.5) gm/dL Hct (39.0-53.0) % Lymphocytes # (1.0-4.8) k/uL APTT 35.8 H (22.0-30.0) sec Sodium (137-145) mmol/L BUN (9-20) mg/dL Calcium (8.4-10.2) mg/dL AST (17-59) U/L ALT (4-49) U/L Troponin I (0.000-0.034) ng/mL Total Protein (6.3-8.2) g/dL Albumin (3.5-5.0) g/dL Procalcitonin (0.02-0.09) ng/mL
[2023-10-30] MEDS ORDERED: LIDOCAINE 1% INJ 10MG/ML (20 ML MDV) ONE (10:38)
[2023-10-30] MEDS ORDERED: VERAPAMIL 2.5 MG/ML 2 ML AMP ONE (10:38)
[2023-10-30] MEDS ORDERED: fentaNYL (PF) 50 MCG/ML 2 ML AMP ONE (11:12)
[2023-10-30] MEDS ORDERED: HEPARIN SODIUM 1,000 UN/ML (10ML VL) ONE (11:12)
[2023-10-30] MEDS: LIDOCAINE 1% INJ 10MG/ML (20 ML MDV) SQ ONE (11:17)
[2023-10-30] MEDS: fentaNYL (PF) 50 MCG/ML 2 ML AMP IVP ONE (11:17)
[2023-10-30] MEDS: SODIUM CHLORIDE 0.9% 1,000 ML IV ONE (11:17)
[2023-10-30] MEDS: MIDAZOLAM 2 MG/2 ML VIAL IVP ONE (11:17)
[2023-10-30] MEDS: VERAPAMIL SYRINGE (5 MG/10 ML) INTRAARTER ONE (11:20)
[2023-10-30] MEDS: HEPARIN SODIUM 1,000 UN/ML (10ML VL) IV ONE ×2 (11:22→11:23)
[2023-10-30] MEDS ORDERED: CLOPIDOGREL 75 MG TAB ONE (11:53)
[2023-10-30] MEDS: CLOPIDOGREL 75 MG TAB PO ONE (11:56)
[2023-10-30] MEDS: HEPARIN SODIUM,PORCINE 10,000 UNIT in SODIUM CHLORIDE 0.9% 1,000 ML IRRIGATION PRN (12:20)
[2023-10-30] MEDS: IOPAMIDOL-370 200ML BTL INJ ONE (12:20)
[2023-10-30] MEDS: HEPARIN SODIUM,PORCINE (1 ML) 2,500 UNIT in SODIUM CHLORIDE 0.9% 250 ML IRRIGATION PRN (12:21)
[2023-10-30] MEDS: HEPARIN SODIUM 1,000 UN/ML (10ML VL) ONE (12:34)
--- NOTE | 2023-10-30 12:44 | CA ---
Transthoracic Echo Report Name: Fermín Fay Age: 72 Gender: M : 1950 Exam Date: 10/30/2023 08:15 Exam Location: [facility] Ht (in): Wt (lb): Ordering Physician: Minoo Bull Attending/Referring Phys: [id number], [employer] Operations Technician Aniya Rivera RDCS Procedure CPT: Indications: LVF, new [place], Full echo Cardiac Hx: Technical Quality: Good Contrast 1: Total Dose (mL): Contrast 2: Total Dose (mL): MEASUREMENTS (Male / Female) Normal Values 2D ECHO LV Diastolic Diameter PLAX 5.9 cm 4.2 - 5.9 / 3.9 - 5.3 cm LV Systolic Diameter PLAX 5.3 cm IVS Diastolic Thickness 1.5 cm 0.6 - 1.0 / 0.6 - 0.9 cm LVPW Diastolic Thickness 1.0 cm 0.6 - 1.0 / 0.6 - 0.9 cm LV Relative Wall Thickness 0.4 LVOT Diameter 2.4 cm LV Diastolic Volume MOD BP 316.5 cm??? 67 - 155 / 56 - 104 cm??? LV Systolic Volume MOD BP 171.6 cm??? 22 - 58 / 19 - 49 cm??? LV Ejection Fraction MOD BP 45.8 % >= 55 % LV Diastolic Volume MOD 4C 321.0 cm??? LV Systolic Volume MOD 4C 167.3 cm??? LV Ejection Fraction MOD 4C 47.9 % LV Diastolic Length 4C 10.7 cm LV Systolic Length 4C 9.1 cm LV Diastolic Volume MOD 2C 311.1 cm??? LV Systolic Volume MOD 2C 177.2 cm??? LV Ejection Fraction MOD 2C 43.0 % LV Diastolic Length 2C 10.7 cm LV Systolic Length 2C 9.1 cm LA Volume 148.8 cm??? 18 - 58 / 22 - 52 cm??? Ascending Aorta Diameter 3.7 cm DOPPLER AV Peak Velocity 285.6 cm/s AV Peak Gradient 32.6 mmHg AV Mean Velocity 203.2 cm/s AV Mean Gradient 18.4 mmHg AV Velocity Time Integral 57.0 cm AI Peak Velocity 404.1 cm/s AI Peak Gradient 65.3 mmHg LVOT Peak Velocity 131.4 cm/s LVOT Peak Gradient 6.9 mmHg LVOT Velocity Time Integral 23.2 cm LVOT Stroke Volume 100.9 cm??? AV Area Cont Eq vti 1.8 cm??? AV Area Cont Eq pk 2.0 cm??? MV Peak Velocity 152.1 cm/s MV Peak Gradient 9.3 mmHg MV Mean Velocity 83.2 cm/s MV Mean Gradient 3.4 mmHg MV Velocity Time Integral 40.7 cm MV Area PHT 4.9 cm??? MR Peak Velocity 421.7 cm/s MR Peak Gradient 71.1 mmHg Mitral E Point Velocity 138.3 cm/s Mitral A Point Velocity 43.1 cm/s Mitral E to A Ratio 3.2 MV Deceleration Time 153.6 ms TR Peak Velocity 292.5 cm/s TR Peak Gradient 34.2 mmHg Right Atrial Pressure 5.0 mmHg Pulmonary Artery Systolic Pressu 39.2 mmHg Right Ventricular Systolic Press 39.2 mmHg PV Peak Velocity 94.7 cm/s PV Peak Gradient 3.6 mmHg FINDINGS Left Ventricle Left ventricular ejection fraction is estimated at 35-40%. Moderately increased septal wall thickness. Severely increased left ventricular diastolic volume. Severely increased left ventricular systolic volume. Moderately to severely decreased left ventricular ejection fraction with regional variability. Right Ventricle Normal right ventricular size with mild to moderately reduced function. Mild pulmonary hypertension. Right Atrium Severe right atrial dilatation. Left Atrium Severely increased left atrial volume. Moderately increased left atrial area. Mitral Valve Mitral valve thickened. No evidence for mitral valve prolapse. Mild mitral stenosis. Moderate mitral regurgitation. Aortic Valve Trileaflet aortic valve. Mild aortic stenosis. Moderate to severe aortic regurgitation. Tricuspid Valve Structurally normal tricuspid valve. No tricuspid stenosis. Mild tricuspid regurgitation. Pulmonic Valve Structurally normal pulmonic valve. No pulmonic stenosis. Trace pulmonic regurgitation. Pericardium No pericardial effusion. Aorta Normal size aortic root and proximal ascending aorta. CONCLUSIONS Left ventricular ejection fraction 35-40% Moderately increased left ventricular wall thickness RVSP 39 Severe biatrial enlargement Moderate mitral regurgitation Mild aortic stenosis Moderate to severe aortic regurgitation Mild tricuspid regurgitation Previewed by: Dr. Carson Bobby DO (Electronically Signed) Final Date: 30 October 2023 12:43
--- NOTE | 2023-10-30 13:32 | P.PRCINT ---
Percutaneous Coronary Int. - Percutaneous Coronary Intervention Percutaneous Coronary Intervention: PROCEDURES PERFORMED: Left heart catheterization, left coronary angiography, MAGAÑA to LAD, SVG to PDA angiography, PCI SVG to PDA with a 3.5 x 20mm Papyrus covered stent and 3.5 x 15mm Xience AMEENA with Spider 5.0 embolic protection device INDICATION: NSTEMI CONSENT:I have discussed the risks, benefits and alternative therapies for the above-mentioned procedure and for both sedation/analgesia as well as necessary blood product administration, if indicated, as they pertain to this patient. The patient has indicated understanding and acceptance of the risks and procedures discussed. PROCEDURE: After the risks, benefits and alternatives of the above mentioned procedure explained in detail with the patient, informed consent was obtained. Patient was taken to the catheterization lab and prepped and draped in usual fashion. Ultrasound guidance was used to assess for arterial access. 1% lidocaine was used to anesthetize the left radial artery. A 6-Turkmen sheath was placed in the left radial artery using modified Seldinger technique and ultrasound guidance. Left coronary angiography was performed with a 5-Turkmen JL 4.5 catheter and right coronary angiography was deferred with recent angiography showing it occluded. The 5-Turkmen FL4.5 catheter was inserted into the left ventricle and pressure measurements were obtained. MAGAÑA to LAD angiography was performed subselectively with a 6-Turkmen IM catheter. The SVG to PDA graft was engaged with a 6-Turkmen AL 0.75 guide catheter. The decision was made to perform PCI of the SVG to PDA. There was a performation of unclear etiology with no recent trauma or wiring during recent diagnostic procedure 2 weeks ago. The decision was made however to place a covered stent. Heparin was given. A 0.014 BMW was advanced into the distal SVG. This was exchanged for a 5.8 or embolic protection device. Next a 3.5 x 20 mm Papyrus covered stent was placed at the site of the perforation. There was more distal disease and therefore this was covered with overlapping 3.5 x 15 mm Xience drug-eluting stent. final angiograms were performed. Preintervention there was 80% stenosis and perforation with VARGHESE 2 flow and postintervention there was 0% stenosis with VARGHESE 3 flow. The radial sheath was removed and a TR band was placed with hemostasis achieved. The patient tolerated the procedure well. Patient was transported back to the post catheterization holding area in stable condition. Conscious Sedation: Patient was monitored under the direct supervision of myself for conscious sedation using Versed and fentanyl for a total duration of 59 minutes HEMODYNAMICS: aorta: 118/51 LV: 119/8, LVEDP 18, mean gradient across the valve 6 SELECTIVE CORONARY ARTERIOGRAPHY: LEFT MAIN: The left main is a large caliber vessel which bifurcates into the LAD and circumflex. There is 100% left main stenosis LEFT ANTERIOR DESCENDING CORONARY ARTERY: there is no antegrade flow through the solomon LAD. LEFT CIRCUMFLEX CORONARY ARTERY: there is no antegrade flow through the solomon circumflex RIGHT CORONARY ARTERY: The right coronary artery was not imaged however known to be 100% occluded MAGAÑA to LAD: Widely patent with junk graft to diagonal branch. There does appear to be a more proximal stenosis just prior to the MAGAÑA insertion in the LAD which is in the order of 60-70% stenosis. SVG to PDA: There is a contained perforation of the proximal SVG with 80% hazy stenosis just distal to the perforation. Otherwise there is no significant stenosis. There are collaterals to the circumflex. SVG to OM: known to be 100% occluded FINAL IMPRESSION: 1. Severe [place] CAD as described above including 100% left main stenosis, 100% RCA stenosis 2. Patent MAGAÑA to LAD/diagonal 3. New contained perforation of the SVG and 80% SVG stenosis 3. Elevated left sided filling pressures 4. S/p PCI SVG to PDA with a 3.5 x 20mm Papyrus covered stent and 3.5 x 15mm Xience AMEENA PLAN: 1. Aggressive risk factor modification per most recent ACC/AHA guidelines. 2. Continue aspirin and Plavix with Xarelto for 1 week then switch to Plavix and Xarelto for 12 months 3. Unclear etiology of perforation with no significant trauma to area during recent catheterization. Aggressive blood pressure control.
[2023-10-30] MEDS ORDERED: MAG HYDROX/AL HYDROX/SIMETH 30 ML CUP PO PRN (14:09)
[2023-10-30] MEDS ORDERED: ATROPINE SULFATE 0.1 MG/ML 10ML SYRINGE IV PRN (14:09)
[2023-10-30] MEDS ORDERED: RX INFO: IV CONTRAST WAS GIVEN 1 EACH MISC MISCELLANE PRN (14:09)
[2023-10-30] MEDS ORDERED: ZOLPIDEM 5 MG TAB PO PRN (14:09)
--- NOTE | 2023-10-30 14:37 | P.PN ---
Subjective Progress Note Date: 10/30/23 Principal diagnosis: Chest pain. Pulmonary consult dated October 29, 2023. 72-year-old male who was seen in the emergency department, room 4. He apparently has not been feeling well for about a week or so prior to admission. He apparently came with complaints of shortness of breath, chest pain, cough, chest congestion, and generally not feeling well. He was seen in the emergency department. The patient was on 2 L of oxygen. He was on IV heparin as well. According to the nurse practitioner who works with cardiology, the patient is scheduled for cardiac catheterization tomorrow. He has a history of a recent catheterization, done on October 13, which revealed severe [place] CAD as well as occluded SVG to OM1 of his previous bypass grafting. He is on blood thinner for his atrial fibrillation, and has a prior history of a MRSA infection. The patient complains of substernal chest discomfort, which has been going on for at least a week or so. According to a family member, the patient was also having fever. Other medical history includes hyperlipidemia, hypertension, hypothyroidism, melanoma, and chronic back pain, with spinal stenosis. He also has a history of kidney stones, previous bypass grafting, and heart catheterization. Current labs include a white count 11.6, hemoglobin 13.3, hematocrit 40.6, platelet count 2 21,000. PTT is 49.4. Sodium 134, potassium 4.2, chloride 99, CO2 25, anion gap 10, BUN 34, and creatinine 0.97. Glucose is 110. Troponins were 29.7 27.3 and 25.3. N-terminal proBNP was 14,200. Studies for influenza, RSV, coronavirus were all negative. Chest x-ray was consistent with pulmonary edema. Progress note dated October 30, 2023. 72-year-old male that was seen in the emergency department yesterday. The patient is being evaluated for chest discomfort, and shortness of breath. He also apparently had a chest congestion, cough, and fever, and was generally just not feeling well. The patient went for heart catheterization today. Currently he is on 2 L, with saturations are 97%. Current laboratory includes a white count 7.6, hemoglobin 11.9, hematocrit 36.5, and a platelet count of 226,000. PTT is 35.8. Sodium 133, potassium 4.1, chlorides 101, CO2 24, BUN 36, and creatinine 0.94. Calcium is 8.3. Procalcitonin level was 0.19. Troponins were quite elevated at 29.7, 27.3, and 25.3. Blood cultures are currently negative. Dr. Bobby's final impression, is noted in the medical record. The patient did have a PCI from the SVG to PDA with a 3.5 x 20 mm covered stent and 3.5 x 15 mm drug-eluting stent. Objective - Vital Signs Vital signs: Vital Signs Temp 99.3 F 10/30/23 12:59 Pulse 75 10/30/23 14:09 Resp 17 10/30/23 14:09 BP 117/69 10/30/23 14:09 Pulse Ox 97 10/30/23 14:09 FiO2 Intake & Output 10/29/23 10/30/23 10/30/23 18:59 06:59 18:59 Intake Total 779.071 348.147 Output Total 750 Balance 29.071 348.147 Weight 201.3 kg Intake: IV 300 Intake, IV Titration 239.071 48.147 Amount Heparin Sod,Pork in 0.45% 239.071 48.147 NaCl 25,000 unit In 0.45 % NaCl 1 250ml.bag @ 10. 91 UNITS/KG/HR 9.996 mls/ hr IV .Q24H [facility] Rx#: [id number] Oral 540 Output: Urine 750 Other: Voiding Method Urinal Urinal - Exam No acute distress, oriented 3. Currently on nasal O2. Saturations are 96%. HEENT examination is grossly unremarkable. Mucous membranes are moist. No oral lesions. Neck supple. Full range of motion. No adenopathy thyromegaly or neck vein distention. Cardiovascular examination reveals regular rhythm rate. S1-S2 normal. No S3 or S4. No discernible murmur noted. Heart rate 75 bpm. Lungs reveal scattered crackles. No rhonchi or wheezes. Breath sounds equal. Abdomen soft bowel sounds are heard. No masses or tenderness. Extremities are intact. No cyanosis clubbing or edema. Skin is without rash or lesion. Neurologic examination is brief but nonfocal. - Labs CBC & Chem 7: 10/30/23 05:37 10/30/23 05:37 Labs: Abnormal Lab Results - Last 24 Hours (Table) 10/29/23 10/30/23 10/30/23 Range/Units 08:33 05:37 05:37 RBC 3.89 L (4.30-5.90) m/uL Hgb 11.9 L (13.0-17.5) gm/dL Hct 36.5 L (39.0-53.0) % Lymphocytes # 0.9 L (1.0-4.8) k/uL APTT (22.0-30.0) sec Sodium 133 L (137-145) mmol/L BUN 36 H (9-20) mg/dL Calcium 8.3 L (8.4-10.2) mg/dL AST 153 H (17-59) U/L ALT 52 H (4-49) U/L Total Protein 5.9 L (6.3-8.2) g/dL Albumin 3.3 L (3.5-5.0) g/dL Procalcitonin 0.19 H (0.02-0.09) ng/mL 10/30/23 Range/Units 05:37 RBC (4.30-5.90) m/uL Hgb (13.0-17.5) gm/dL Hct (39.0-53.0) % Lymphocytes # (1.0-4.8) k/uL APTT 35.8 H (22.0-30.0) sec Sodium (137-145) mmol/L BUN (9-20) mg/dL Calcium (8.4-10.2) mg/dL AST (17-59) U/L ALT (4-49) U/L Total Protein (6.3-8.2) g/dL Albumin (3.5-5.0) g/dL Procalcitonin (0.02-0.09) ng/mL Microbiology - Last 24 Hours (Table) 10/29/23 04:05 Blood Culture - Preliminary Blood 10/29/23 03:50 Blood Culture - Preliminary Blood Assessment and Plan Assessment: Non-ST segment elevation myocardial infarction. History of CAD with previous four-vessel bypass grafting. Paroxysmal atrial fibrillation. Aortic valve stenosis. History of hypertension. Hyperlipidemia. Hypothyroidism. Peripheral artery disease. History of melanoma. Prior history of MRSA infection. Plan: Plan dated October 29, 2023. The patient is seen in the emergency department, room 4. The patient came in with complaints of fever, chest pain, and shortness of breath. His troponins were quite elevated. The patient likely has a non-ST segment elevation myocard ial infarction. The patient had a recent cardiac catheterization, in early October. We will continue to follow along. Additional recommendations and suggestions are forthcoming. A procalcitonin level was ordered. The chest x- ray is consistent with CHF. The patient's N-terminal proBNP was quite elevated. The patient has no prior history of any lung disease. Plan dated October 30, 2023. The patient is seen today in room 355. The patient went to the catheterization laboratory, and did have a PCI, from the SVG, to the PDA. Labs, x-rays, and medications are reviewed. The patient's respiratory status is stable. The patient's procalcitonin level was a bit elevated at 0.19. No obvious source of infection. Studies for influenza, RSV, coronavirus, were negative. We will continue to follow make recommendations along the way. Patient's chest x-ray was consistent with CHF. The patient was initially diagnosed with a non-ST segment elevation myocardial infarction. Time with Patient: Less than 30
--- NOTE | 2023-10-30 14:57 | P.PN ---
Subjective Progress Note Date: 10/30/23 HISTORY OF PRESENT ILLNESS This is a 72-year-old male patient of Dr. Florencio Elizabeth with past medical history of coronary artery bypass graft 4 vessel done at [facility] in 2008 with MAGAÑA to LAD and diagonal, saphenous vein graft to PDA, saphenous vein graft to the obtuse marginal branch, paroxysmal atrial fibrillation on Xarelto, aortic valve stenosis aortic regurgitation, hypertension, dyslipidemia, moderate bilateral carotid stenosis, peripheral artery disease status post right iliac stenting, hypothyroidism, benign prostatic hypertrophy, melanoma resected from his back. Patient presented to the emergency department at [facility] after a week history of retrosternal chest pain associated with increased shortness of breath, he was seen recently in the office for what appears to be an upper respiratory tract infection associated with increased shortness of br eath, had laboratory evaluation at that time that showed elevation of the C- reactive protein with normal ESR, blood cultures were negative because of the patient prior history of MRSA induced endocarditis, patient was not feeling well, he decided to go to the ER at 3:00 in the morning because of increased shortness of breath, he was seen in the emergency department he was found to have a pulmonary vascular congestion and he was found to have an elevated troponin at 29, patient did have a left heart catheterization that was done by Dr. Bobby on October 13 and that showed severe [place] CAD disease with 100% occlusion of the left main, 100% occlusion of the RCA, patent MAGAÑA to LAD and diagonal branch, patent SVG to the PDA, and occluded SVG to the obtuse marginal branch, at that time it was recommended for the patient to continue with medical management, he also was found to have aortic regurgitation 3-4+, patient was admitted to the hospital he was started on a heparin drip, and he was seen in consultation by cardiology as well as by pulmonary medicine it was recommended for the patient to go for left heart catheterization tomorrow morning. 10/29: Today, patient underwent LHC with Dr. Bobby and had 2 stent placement in the SVG to the PDA after what appears a perforation in the graft area with 80% stenosis, he had 2 stents placed in that area, and the patient is feeling a lot better after the procedure, he had an echocardiogram that showed evidence of ejection fraction of 35 to 40%, severe bilateral atrial enlargement, severe aortic regurgitation, mild aortic stenosis, as well as increased right sided ventricular pressure, patient did receive Lasix 40 mg IV push in the early hours in the morning because of significant shortness of breath, he is currently down to 2 L nasal cannula, patient continues to be somewhat hypotensive, he is not taking any LANDEN inhibitor at this time or any beta-jennifer due to his hypotension will reevaluate in the next 24 hours, will monitor the patient very closely, patient is being followed by pulmonary medicine as well as cardiology. REVIEW OF SYSTEMS Constitutional: No fever, no chills, no night sweats. No weight change. No weakness, fatigue or lethargy. No daytime sleepiness. EENT: No headache. No blurred vision or double vision, no loss of vision. No loss of Hearing, no ringing in the ears, no dizziness. No nasal drainage or congestion. No epistaxis. No sore throat. Lungs: positive for shortness of breath, occasional cough, no sputum production. No wheezing. Cardiovascular: Reports no chest pain, no lower extremity edema. No palpitations. No paroxysmal nocturnal dyspnea. No orthopnea. No lightheadedness or dizziness. No syncopal episodes. Abdominal: No abdominal pain. No nausea, vomiting. No diarrhea. No constipation. No bloody or tarry stools. No loss of appetite. Genitourinary: No dysuria, increased frequency, urgency. No urinary retention. Musculoskeletal: No myalgias. No muscle weakness, no gait dysfunction, no frequent falls. No back pain. No neck pain. Integumentary: No wounds, no lesions. No rash or pruritus. No unusual bruising. No change in hair or nails. Neurologic: No aphasia. No facial droop. No change in mentation. No head injury. No headache. No paralysis. No paresthesia. Psychiatric: No depression. No anxiety. No mood swings. Endocrine: No abnormal blood sugars. No weight change. No excessive sweating or thirst. No cold intolerance. PHYSICAL EXAMINATION Gen: This is a 72-year-old male, laying down in bed in no apparent distress. HEENT: Head is atraumatic, normocephalic. Pupils equal, round. Sclerae is anicteric. NECK: Supple. No JVD. No lymphadenopathy. No thyromegaly. LUNGS: Clear to auscultation. No wheezes or rhonchi. No intercostal retractions. HEART: First heart sounds depressed, second heart sounds normal, other systolic ejection murmur 2/6 located in the left sternal border. ABDOMEN: Soft. Bowel sounds are present. No masses. No tenderness. EXTREMITIES: There is no pedal edema, no calf tenderness, dorsalis pedis +2 bilaterally. NEUROLOGICAL: Patient is awake, alert and oriented x3. Cranial nerves 2 through 12 are grossly intact, muscle power 5 out of 5 in upper and lower extremities bilaterally. ASSESSMENT AND PLAN 1. Non-ST elevation myocardial infarction. Patient was started on Plavix 75 mg orally once every day, he is to continue on aspirin 81 mg once every day, the plan is to resume either heparin drip or or even go back on Xarelto 15 mg orally once every day, continue atorvastatin 80 mg once every day, continue with Zetia 10 mg once every day, start the patient on PCSK9 inhibitor Repatha 140 mg subcutaneously every 2 weeks, monitor the patient very closely, keep LDL cholesterol less than 50 at all the time, 2. Acute systolic heart failure. Patient will be started back on his lisinopril 40 mg once every day, he may need to be started on Farxiga 5 mg orally once every day as well. 3. History of coronary artery disease with 4 vessel CABG with recent left heart catheterization October 14, 2023 that showed patent MAGAÑA to LAD diagonal branch, patent SVG to PDA, and total occlusion of SVG to the obtuse marginal branch. Continue treatment as in previous paragraph. 4. Paroxysmal atrial fibrillation currently in a sinus rhythm. Patient will be going back to Xarelto 15 mg orally once every day. 5. Hypertension hypertensive cardiovascular disease. Blood pressure appears to be soft at this time, we will restart LANDEN inhibitor when his blood pressure allows. 6. Hypothyroidism. Continue levothyroxine 175 mcg orally once every day, monitor the patient thyroid function test very closely. 7. Benign prostatic hypertrophy. Continue Flomax or 0.4 mg daily and monitor for urinary retention. 8. Hyperlipidemia. Continue atorvastatin 80 mg at bedtime will need to be started on Repatha 140 mg subcutaneous every 2 weeks., 9. Peripheral artery disease status post iliac stent. Stable at this time. Continue statin as well as aspirin for secondary prevention. 10. DVT prophylaxis. Patient is currently off heparin drip, will restart the patient back on Xarelto 15 mg orally once every day if okay with cardiology. 11. GI prophylaxis. Start the patient on Protonix 40 mg orally once every day. 12. Overall prognosis is guarded. Objective - Vital Signs Vital signs: Vital Signs Temp 99.3 F 10/30/23 12:59 Pulse 70 10/30/23 12:59 Resp 17 10/30/23 12:59 BP 105/45 10/30/23 12:59 Pulse Ox 95 10/30/23 12:59 FiO2 Intake & Output 10/29/23 10/30/23 10/30/23 18:59 06:59 18:59 Intake Total 779.071 348.147 Output Total 750 Balance 29.071 348.147 Weight 201.3 kg Intake: IV 300 Intake, IV Titration 239.071 48.147 Amount Heparin Sod,Pork in 0.45% 239.071 48.147 NaCl 25,000 unit In 0.45 % NaCl 1 250ml.bag @ 10. 91 UNITS/KG/HR 9.996 mls/ hr IV .Q24H [facility] Rx#: [id number] Oral 540 Output: Urine 750 Other: Voiding Method Urinal Urinal - Labs CBC & Chem 7: 10/30/23 05:37 10/30/23 05:37 Labs: Abnormal Lab Results - Last 24 Hours (Table) 10/29/23 10/30/23 10/30/23 Range/Units 08:33 05:37 05:37 RBC 3.89 L (4.30-5.90) m/uL Hgb 11.9 L (13.0-17.5) gm/dL Hct 36.5 L (39.0-53.0) % Lymphocytes # 0.9 L (1.0-4.8) k/uL APTT (22.0-30.0) sec Sodium 133 L (137-145) mmol/L BUN 36 H (9-20) mg/dL Calcium 8.3 L (8.4-10.2) mg/dL AST 153 H (17-59) U/L ALT 52 H (4-49) U/L Total Protein 5.9 L (6.3-8.2) g/dL Albumin 3.3 L (3.5-5.0) g/dL Procalcitonin 0.19 H (0.02-0.09) ng/mL 10/30/23 Range/Units 05:37 RBC (4.30-5.90) m/uL Hgb (13.0-17.5) gm/dL Hct (39.0-53.0) % Lymphocytes # (1.0-4.8) k/uL APTT 35.8 H (22.0-30.0) sec Sodium (137-145) mmol/L BUN (9-20) mg/dL Calcium (8.4-10.2) mg/dL AST (17-59) U/L ALT (4-49) U/L Total Protein (6.3-8.2) g/dL Albumin (3.5-5.0) g/dL Procalcitonin (0.02-0.09) ng/mL Microbiology - Last 24 Hours (Table) 10/29/23 04:05 Blood Culture - Preliminary Blood 10/29/23 03:50 Blood Culture - Preliminary Blood
[2023-10-30] MEDS: RIVAROXABAN 20 MG TAB PO SCH (16:57)
[2023-10-30] MEDS: SODIUM CHLORIDE 0.9% 1,000 ML in EMPTY BAG 1 BAG IV SCH (18:36)
[2023-10-30] MEDS: amLODIPine 10 MG TAB PO SCH (19:44)
[2023-10-30] MEDS ORDERED: NON FORMULARY DRUG (Glucosamine Sulfate [Glucosamine Sulfate] 1,000 MG Tablet) PO SCH (21:00)
[2023-10-31] MEDS ORDERED: RX INFO: IV CONTRAST WAS GIVEN 1 EACH MISC MISCELLANE PRN (07:08)
--- NOTE | 2023-10-31 07:08 | P.CONS ---
History of Present Illness - Reason for Consult Consult date: 10/30/23 Fever of unknown origin Requesting physician: Buddy Salas - Chief Complaint Chest pain shortness of breath x 1 day - History of Present Illness Patient is a 72-year-old male with a past medical history significant for atrial fibrillation hypertension hyperlipidemia prostate disorder did have a history of MRSA bacteremia November 2022 diagnosed and treated initiallyNjorida and the patient did have extensive workup but no clear focus of that bacteremia patient completed course of IV followed by oral antibiotic therapy and seems to be doing well however over the last 2 weeks the patient seem to have been dealing with fever that has been treated in the outpatient setting did have a negative blood culture patient now presented to [facility] on ER yest erday morning for evaluation of increasing shortness of breath as well as substernal chest pain no nausea no vomiting no abdominal pain no diarrhea no urinary symptoms patient on presentation to the hospital was afebrile however last night he did spike a fever of 101.1 F afebrile since then patient was not tachycardic hypotensive mildly hypoxic currently on 2 L nasal cannula oxygen patient did have a white count of 11.6 on admission subsequent normalized without any antibiotic therapy he did have a normal creatinine liver isms mildly elevated as well as elevated troponin influenza RSV COVID testing was negative blood cultures obtained which are currently pending patient did have a echocardi ogram patient will EF of 35 to 40% moderate MR severe aortic regurgitation and mild tricuspid regurgitation no mention of any vegetation patient also have a cardiac cath contained perforation of SVG and 80% SVG stenosis s/p PCI to SVG to PDA infectious disease was consulted this afternoon for the fever of unclear etiology patient except his respiratory and cardiac symptoms has been asymptomatic Review of Systems Positive point and negatives has been mentioned in the HPI, complete review of systems was performed and all other systems are negative Past Medical History Past Medical History: Atrial Fibrillation, Cancer, Hyperlipidemia, Hypertension, Prostate Disorder, Thyroid Disorder, Vascular Disorder Additional Past Medical History / Comment(s): MELANOMA ON BACK, recent stress test, echo, hx. kidney stones, spinal stenosis lower back History of Any Multi-Drug Resistant Organisms: MRSA Year Discovered:: 11/18/22 MDRO Source:: blood Past Surgical History: Appendectomy, Coronary Bypass/CABG, Heart Catheterization, Hernia Repair, Orthopedic Surgery, Tonsillectomy Additional Past Surgical History / Comment(s): QUAD BYPASS-2010 ,COLONOSCOPY X 3 ,MELANOMA REMOVED FROM BACK. ORIF RT WRIST ,TITANIUM PLATE LT SHOULDER, stento lower right iliac artery. NUMEROUS HERNIA REPAIRS ,DALIA Past Anesthesia/Blood Transfusion Reactions: No Reported Reaction Past Psychological History: Anxiety Smoking Status: Former smoker Past Alcohol Use History: None Reported Additional Past Alcohol Use History / Comment(s): QUIT SMOKING 1997 Past Drug Use History: None Reported - Past Family History Mother Family Medical History: No Reported History Medications and Allergies Home Medications Medication Instructions Recorded Confirmed Type Acetaminophen [Tylenol Extra 500 mg PO HS 10/24/22 10/29/23 History Strength] Ascorbic Acid [Vitamin C] 1,000 mg PO DAILY 10/24/22 10/29/23 History Atorvastatin [Lipitor] 80 mg PO HS 10/24/22 10/29/23 History Glucosamine Sulfate 1,000 mg PO HS 10/24/22 10/29/23 History Multivit,Calc,Min/FA/K1/Lycop 1 tab PO DAILY 10/24/22 10/29/23 History [One-A-Day Men's Complete Tab] Rivaroxaban [Xarelto] 20 mg PO HS 10/24/22 10/29/23 History Tamsulosin [Flomax] 0.4 mg PO DAILY 10/24/22 10/29/23 History amLODIPine [Norvasc] 10 mg PO HS 10/24/22 10/29/23 History ramipriL 10 mg PO DAILY 10/24/22 10/29/23 History Isosorbide Mononitrate [Isosorbide 60 mg PO DAILY 10/10/23 10/29/23 History Mononitrate ER] Albuterol Sulfate [Albuterol 1 - 2 puff INHALATION RT-QID PRN 10/29/23 10/29/23 History Sulfate Hfa] Doxycycline [Vibramycin] 100 mg PO BID 10/29/23 10/29/23 History Levothyroxine Sodium [Synthroid] 175 mcg PO DAILY 10/29/23 10/29/23 History Allergies Allergy/AdvReac Type Severity Reaction Status Date / Time ciprofloxacin [From Cipro] Allergy TROUBLE Verified 10/29/23 08:17 SWALLOWING Physical Exam Vitals: Vital Signs Temp Pulse Pulse Pulse Resp BP BP 10/30/23 14:54 78 18 110/59 10/30/23 14:00 75 17 117/69 10/30/23 13:30 71 17 106/64 10/30/23 13:15 74 18 116/66 10/30/23 12:59 99.3 F 70 17 105/45 10/30/23 12:44 68 17 121/63 10/30/23 08:10 98.8 F 63 17 107/62 10/30/23 03:09 98.9 F 71 16 101/63 10/30/23 03:00 10/29/23 23:49 107/63 10/29/23 23:44 101.1 F H 82 16 111/64 10/29/23 22:41 97.4 F L 91 16 139/71 10/29/23 22:17 97.4 F L 91 16 139/71 10/29/23 21:25 88 18 124/64 10/29/23 20:50 73 10/29/23 20:35 75 10/29/23 18:20 73 16 113/73 10/29/23 16:19 70 10/29/23 16:12 68 18 103/66 10/29/23 16:05 78 Pulse Ox 10/30/23 14:54 95 10/30/23 14:00 97 10/30/23 13:30 96 10/30/23 13:15 99 10/30/23 12:59 95 10/30/23 12:44 95 10/30/23 08:10 95 10/30/23 03:09 93 L 10/30/23 03:00 94 L 10/29/23 23:49 10/29/23 23:44 91 L 10/29/23 22:41 96 10/29/23 22:17 96 10/29/23 21:25 98 10/29/23 20:50 10/29/23 20:35 10/29/23 18:20 95 10/29/23 16:19 10/29/23 16:12 100 10/29/23 16:05 Intake and Output 10/30/23 10/30/23 10/30/23 06:59 14:59 22:59 Intake Total 779.071 348.147 Output Total 750 Balance 29.071 348.147 Intake: IV 300 Intake, IV Titration 239.071 48.147 Amount Heparin Sod,Pork in 0.45% 239.071 48.147 NaCl 25,000 unit In 0.45 % NaCl 1 250ml.bag @ 10. 91 UNITS/KG/HR 9.996 mls/ hr IV .Q24H [facility] Rx#: [id number] Oral 540 Output: Urine 750 Other: Voiding Method Urinal Urinal Weight 201.3 kg GENERAL DESCRIPTION: Elderly male up in bed, no distress. No tachypnea or accessory muscle of respiration use. HEENT: Shows Pallor , no scleral icterus. Oral mucous membrane is dry. No pharyngeal erythema or thrush NECK: Trachea central, no thyromegaly. LUNGS: Unlabored breathing. decreased breath sound the base HEART: S1, S2, regular rate and rhythm. Systolic murmur ABDOMEN: Soft, no tenderness , guarding or rigidity, no organomegaly EXTREMITIES: No edema of feet. SKIN: No rash, no masses palpable. NEUROLOGICAL: The patient is awake, alert, oriented x3, mood and affect normal. Results CBC & Chem 7: 10/31/23 06:57 10/31/23 06:57 Labs: Abnormal Lab Results - Last 24 Hours (Table) 10/29/23 10/30/23 10/30/23 Range/Units 08:33 05:37 05:37 RBC 3.89 L (4.30-5.90) m/uL Hgb 11.9 L (13.0-17.5) gm/dL Hct 36.5 L (39.0-53.0) % Lymphocytes # 0.9 L (1.0-4.8) k/uL APTT (22.0-30.0) sec Sodium 133 L (137-145) mmol/L BUN 36 H (9-20) mg/dL Calcium 8.3 L (8.4-10.2) mg/dL AST 153 H (17-59) U/L ALT 52 H (4-49) U/L Total Protein 5.9 L (6.3-8.2) g/dL Albumin 3.3 L (3.5-5.0) g/dL Procalcitonin 0.19 H (0.02-0.09) ng/mL 10/30/23 Range/Units 05:37 RBC (4.30-5.90) m/uL Hgb (13.0-17.5) gm/dL Hct (39.0-53.0) % Lymphocytes # (1.0-4.8) k/uL APTT 35.8 H (22.0-30.0) sec Sodium (137-145) mmol/L BUN (9-20) mg/dL Calcium (8.4-10.2) mg/dL AST (17-59) U/L ALT (4-49) U/L Total Protein (6.3-8.2) g/dL Albumin (3.5-5.0) g/dL Procalcitonin (0.02-0.09) ng/mL Microbiology - Last 24 Hours (Table) 10/29/23 04:05 Blood Culture - Preliminary Blood 10/29/23 03:50 Blood Culture - Preliminary Blood Assessment and Plan (1) Fever Current Visit: Yes Status: Acute Code(s): R50.9 - FEVER, UNSPECIFIED SNOMED Code(s): 526466689 Plan: 1patient with episode of fever without clear etiology in this patient appar ently has been dealing with a fever for more than a week in the outpatient setting initially did have some respiratory symptoms concerning for possible pneumonia not being admitted to the hospital for NSTEMI, status postcardiac cath and PCI 2-blood cultures will be repeated and check inflammatory markers 3-we will check a CT of the chest with contrast as well as check ultrasound of the liver gallbladder area keeping in mind elevated liver enzymes and check hepatitis panel 4with resolution of his fever without antibiotic therapy and the patient does not look toxic we will hold off adding any empiric antibiotic therapy at this point Multiple question concern answered We will follow on clinical condition and cultures to further adjust medication if needed Thank you for this consultation we will follow the patient along with you Dictation was produced using [employer] dictation software. please excuse any grammatical, word or spelling errors. Time with Patient: Greater than 30
[2023-10-31 07:52] LABS: Basophils % (A) 1 %; Eosinophils # (A) 0.1 k/uL (0-0.7); Eosinophils % (A) 2 %; HCT 39.7 % (39.0-53.0); HGB 12.8 gm/dL (13.0-17.5); Lymphocytes # (A) 0.8 k/uL (1.0-4.8); Lymphocytes % (A) 11 %; MCH 29.5 pg (25.0-35.0); MCHC 32.2 g/dL (31.0-37.0); MCV 91.6 fL (80.0-100.0); Mean Platelet Volume 8.8; Monocytes # (A) 0.4 k/uL (0-1.0); Monocytes % (A) 5 %; Neutrophils # (A) 5.8 k/uL (1.3-7.7); Neutrophils % (A) 81 %; Platelet Count 286 k/uL (150-450); RBC 4.33 m/uL (4.30-5.90); RDW 13.2 % (11.5-15.5); WBC 7.2 k/uL (3.8-10.6)
[2023-10-31] MEDS: MULTIVITAMINS, THERA 1 EACH TAB PO SCH (08:37)
[2023-10-31] MEDS: ASPIRIN 81 MG PO SCH (08:37)
[2023-10-31] MEDS: lisinopriL 20 MG TAB PO SCH (08:37)
[2023-10-31] MEDS: SPIRONOLACTONE 25 MG TAB PO SCH (08:37)
[2023-10-31] MEDS: FUROSEMIDE 10 MG/ML 2 ML VIAL IV SCH (08:37)
[2023-10-31] MEDS: CLOPIDOGREL 75 MG TAB PO SCH (08:37)
[2023-10-31] MEDS: METOPROLOL TARTRATE 25 MG TAB PO SCH (08:37)
[2023-10-31] MEDS: ISOSORBIDE MONONITRATE ER 60 MG TAB.ER.24H PO SCH (08:37)
[2023-10-31] MEDS: ASCORBIC ACID 500 MG TAB PO SCH (08:37)
[2023-10-31 08:48] LABS: ALT 68 U/L (4-49); AST 126 U/L (17-59); African American GFR (CKD) >90 (>60 ml/min/1.73 sqM); Albumin 3.2 g/dL (3.5-5.0); Alkaline Phosphatase 108 U/L (38-126); Anion Gap 7 mmol/L; Blood Urea Nitrogen 31 mg/dL (9-20); Calcium 8.6 mg/dL (8.4-10.2); Carbon Dioxide 24 mmol/L (22-30); Chloride 104 mmol/L (98-107); Glucose 101 mg/dL (74-99); Magnesium 2.3 mg/dL (1.6-2.3); Non-African American GFR(CKD) >90 (>60 ml/min/1.73 sqM); Sodium 135 mmol/L (137-145); Total Bilirubin 1.3 mg/dL (0.2-1.3)
--- NOTE | 2023-10-31 09:33 | CT ---
EXAMINATION TYPE: CT chest w con DATE OF EXAM: 10/31/2023 COMPARISON: None HISTORY: fever CT DLP: 505.4 mGycm, Automated exposure control for dose reduction was used. CONTRAST: Performed injected with 100 mL of Isovue 300. TECHNIQUE: Axial images were obtained at 5 mm thick sections. Reconstructed images are reviewed on [employer] computer in the coronal plane. FINDINGS: Portion of the thyroid visualized is normal. There is a small bilateral pleural effusion. There is an area of increased density within the left ap ex. Mild increased densities through the perihilar regions. Right lower lobe filtrate with air bronch ograms is present. Appear to be small spinal lymph nodes. No enlarged lymphadenopathy is evident. The ascending aorta diameter at the level of the main pulmonary artery is 4.1 cm. The main pulmonary artery diameter at the bifurcation is 3.[address] sections are obtained through the upper abdomen. There is a nonobstructing 0.3 posterior m edial upper pole right renal stone IMPRESSION: 1. Ascending thoracic aortic aneurysm 4.1 cm. 2. Multiple scattered bilateral upper and mid lung infiltrates. Findings are nonspecific can be relat ed to an infectious etiology such as pneumonia. Other etiologies not excluded. Follow-up to clearing is recommended. 2. More focal consolidation with air bronchograms in the right lower lobe suspicious for pneumonia. 3. Small bilateral pleural effusions.
[2023-10-31 10:56] LABS: Hepatitis A Antibody IgM Nonreactive (Nonreactive); Hepatitis B Core IgM Nonreactive (Nonreactive); Hepatitis B Surface Antigen Nonreactive (Nonreactive); Hepatitis C IgG Antibody Nonreactive (Nonreactive)
[2023-10-31 11:18] VITALS: BMI 29.8
[2023-10-31] MEDS: AZITHROMYCIN 500 MG TAB PO SCH (11:31)
--- NOTE | 2023-10-31 11:31 | P.PN ---
Subjective Progress Note Date: 10/31/23 Principal diagnosis: Chest pain. Pulmonary consult dated October 29, 2023. 72-year-old male who was seen in the emergency department, room 4. He apparently has not been feeling well for about a week or so prior to admission. He apparently came with complaints of shortness of breath, chest pain, cough, chest congestion, and generally not feeling well. He was seen in the emergency department. The patient was on 2 L of oxygen. He was on IV heparin as well. According to the nurse practitioner who works with cardiology, the patient is scheduled for cardiac catheterization tomorrow. He has a history of a recent catheterization, done on October 13, which revealed severe tunica-biloxi CAD as well as occluded SVG to OM1 of his previous bypass grafting. He is on blood thinner for his atrial fibrillation, and has a prior history of a MRSA infection. The patient complains of substernal chest discomfort, which has been going on for at least a week or so. According to a family member, the patient was also having fever. Other medical history includes hyperlipidemia, hypertension, hypothyroidism, melanoma, and chronic back pain, with spinal stenosis. He also has a history of kidney stones, previous bypass grafting, and heart catheterization. Current labs include a white count 11.6, hemoglobin 13.3, hematocrit 40.6, platelet count 2 21,000. PTT is 49.4. Sodium 134, potassium 4.2, chloride 99, CO2 25, anion gap 10, BUN 34, and creatinine 0.97. Glucose is 110. Troponins were 29.7 27.3 and 25.3. N-terminal proBNP was 14,200. Studies for influenza, RSV, coronavirus were all negative. Chest x-ray was consistent with pulmonary edema. Progress note dated October 30, 2023. 72-year-old male that was seen in the emergency department yesterday. The patient is being evaluated for chest discomfort, and shortness of breath. He also apparently had a chest congestion, cough, and fever, and was generally just not feeling well. The patient went for heart catheterization today. Currently he is on 2 L, with saturations are 97%. Current laboratory includes a white count 7.6, hemoglobin 11.9, hematocrit 36.5, and a platelet count of 226,000. PTT is 35.8. Sodium 133, potassium 4.1, chlorides 101, CO2 24, BUN 36, and creatinine 0.94. Calcium is 8.3. Procalcitonin level was 0.19. Troponins were quite elevated at 29.7, 27.3, and 25.3. Blood cultures are currently negative. Dr. Bobby's final impression, is noted in the medical record. The patient did have a PCI from the SVG to PDA with a 3.5 x 20 mm covered stent and 3.5 x 15 mm drug-eluting stent. Progress note dated October 31, 2023. 2-year-old male seen in consultation 2 days ago. The patient had a heart catheterization yesterday. His procalcitonin level was 0.19. He is currently on doxycycline. He is getting oxygen by nasal cannula, at 3 L. He is not receiving any IV fluids. Current laboratory data includes a white count 7.2, hemoglobin 12.8, hematocrit 39.7, and a platelet count of 286,000. Sodium 135, potassium 4, chlorides 104, CO2 24, BUN 31, and creatinine 0.70. Glucose was 101. AST is 126. ALT is 68. C-reactive protein is 26. Blood cultures are currently negative. CT scan shows some abnormalities, which could be consistent with pneumonia. Objective - Vital Signs Vital signs: Vital Signs Temp 98.7 F 10/31/23 08:35 Pulse 65 10/31/23 08:35 Resp 18 10/31/23 08:35 BP 115/63 10/31/23 08:35 Pulse Ox 96 10/31/23 08:35 FiO2 Intake & Output 10/30/23 10/31/23 10/31/23 18:59 06:59 18:59 Intake Total 466.147 118 Output Total 50 Balance 466.147 -50 118 Weight 97 kg 97 kg Intake: IV 300 Intake, IV Titration 48.147 Amount Heparin Sod,Pork in 0.45% 48.147 NaCl 25,000 unit In 0.45 % NaCl 1 250ml.bag @ 10. 91 UNITS/KG/HR 9.996 mls/ hr IV .Q24H [facility] Rx#: [id number] Oral 118 118 Output: Urine 50 Other: Voiding Method Urinal Urinal Urinal # Voids 2 - Exam No acute distress, oriented 3. Currently on nasal O2. Saturations are 96%. HEENT examination is grossly unremarkable. Mucous membranes are moist. No oral lesions. Neck supple. Full range of motion. No adenopathy thyromegaly or neck vein distention. Cardiovascular examination reveals regular rhythm rate. S1-S2 normal. No S3 or S4. No discernible murmur noted. Heart rate 65 bpm. Lungs reveal scattered crackles. No rhonchi or wheezes. Breath sounds equal. 3 L saturation is 96%. Abdomen soft bowel sounds are heard. No masses or tenderness. Extremities are intact. No cyanosis clubbing or edema. Skin is without rash or lesion. Neurologic examination is brief but nonfocal. - Labs CBC & Chem 7: 10/31/23 06:57 10/31/23 06:57 Labs: Abnormal Lab Results - Last 24 Hours (Table) 10/31/23 10/31/23 Range/Units 06:57 06:57 Hgb 12.8 L (13.0-17.5) gm/dL Lymphocytes # 0.8 L (1.0-4.8) k/uL Sodium 135 L (137-145) mmol/L BUN 31 H (9-20) mg/dL Glucose 101 H (74-99) mg/dL AST 126 H (17-59) U/L ALT 68 H (4-49) U/L C-Reactive Protein 26.0 H (<1.0) mg/dL Total Protein 6.0 L (6.3-8.2) g/dL Albumin 3.2 L (3.5-5.0) g/dL Microbiology - Last 24 Hours (Table) 10/29/23 04:05 Blood Culture - Preliminary Blood 10/29/23 03:50 Blood Culture - Preliminary Blood Assessment and Plan Assessment: Non-ST segment elevation myocardial infarction. History of CAD with previous four-vessel bypass grafting. Bilateral pneumonia. Paroxysmal atrial fibrillation. Aortic valve stenosis. History of hypertension. Hyperlipidemia. Hypothyroidism. Peripheral artery disease. History of melanoma. Prior history of MRSA infection. Plan: Plan dated October 29, 2023. The patient is seen in the emergency department, room 4. The patient came in with complaints of fever, chest pain, and shortness of breath. His troponins were quite elevated. The patient likely has a non-ST segment elevation myoc ardial infarction. The patient had a recent cardiac catheterization, in early October. We will continue to follow along. Additional recommendations and suggestions are forthcoming. A procalcitonin level was ordered. The chest x- ray is consistent with CHF. The patient's N-terminal proBNP was quite elevated. The patient has no prior history of any lung disease. Plan dated October 30, 2023. The patient is seen today in room 355. The patient went to the catheterization laboratory, and did have a PCI, from the SVG, to the PDA. Labs, x-rays, and medications are reviewed. The patient's respiratory status is stable. The patient's procalcitonin level was a bit elevated at 0.19. No obvious source of infection. Studies for influenza, RSV, coronavirus, were negative. We will continue to follow make recommendations along the way. Patient's chest x-ray was consistent with CHF. The patient was initially diagnosed with a non-ST segment elevation myocardial infarction. Plan dated October 31, 2023. The patient was started on azithromycin and ceftriaxone per infectious diseases. CT scan of the chest does show bilateral upper lobe and lower lobe infiltrates, consistent with pneumonia. That would explain his fever and his elevated procalcitonin level. The patient had cardiac catheterization done yesterday, and had a stent placed in his SVG to PDA. Clinically, he looks reasonably well. He is on 3 L. No IV fluids. Labs, x-rays, medications are reviewed. We will continue to follow the patient, and make recommendations along the way. Time with Patient: Less than 30
--- NOTE | 2023-10-31 12:31 | P.PN ---
Subjective Progress Note Date: 10/31/23 Reason for Consult (text): NSTEMI, LBBB History of present illness: This is a 72-year-old male patient of Dr. Florencio Elizabeth with past medical history of coronary artery bypass grafting four-vessel done at [facility] in 2008 with MAGAÑA to LAD and diagonal, saphenous vein graft to PDA, saphenous vein graft to the obtuse marginal branch, paroxysmal atrial fibrillation on Xarelto, aortic valve stenosis, hypertension, dyslipidemia, moderate bilateral carotid stenosis, peripheral artery disease status post right iliac stenting. We have been asked to evaluate the patient for non-ST elevated PR and left bundle branch block. Patient recently underwent cardiac catheterization on October 13, see details below. Patient states he has been fighting some type of an infection recently and has been on doxycycline. According to his partner, patient has had fever, fatigue, lethargy but this morning he had sudden onset of shortness of breath. The shortness of breath started while he was sleeping. He denies having any chest pain. Patient came into the emergency center for further evaluation. He is status post IV Lasix x 1 dose and started on heparin drip. His last dose of Xarelto was last evening. Patient was last seen in the office on 10/01/2023 at which time he was found to have worsening of his LV function with abnormal nuclear scan and patient was advised to undergo cardiac catheterization. This was performed by Dr. Bobby on May 16 which revealed severe [place] de[place] CAD with 100% left main stenosis, 100% RCA stenosis. Patent MAGAÑA to LAD/diagonal, SVG to PDA, occluded SVG to OM1. Normal left-sided filling pressures. 34+ aortic insufficiency. Mild aortic stenosis. Plan at that time for aggressive risk factor modification and medical management. Patient states that he has had some mild chronic chest pain that seem to recur about 1 week ago. He had not had the same pain for 1 year. His partner also noted the patient's blood pressure has been low over the past week. Patient also complains of orthopnea. Blood pressure 97/57, heart rate 66, pulse ox 96% on room air, afebrile. EKG: #1 accelerated idioventricular rhythm, #[address] depression lateral precordial leads Chest x-ray: Infiltrates in the mid and lower lung kunz bilaterally. Correlate for pulmonary edema. Subsegmental bibasilar atelectasis could be superimposed. Laboratory studies: WBC 11.7, hemoglobin 13.3. BUN 34 creatinine 0.97, sodium 134, potassium 4.2. Troponins 29.7 and 27.3. proBNP 14,200. Influenza A, influenza B, RSV, COVID-19 not detected. Home cardiac medications: Amlodipine 10 mg at bedtime, atorvastatin 80 mg at bedtime, Imdur 60 mg daily, ramipril 10 mg daily, Xarelto 20 mg at bedtime, also on levothyroxine 175 mcg daily. DALIA performed 04/2021 performed at [facility] in [facility] revea and continue medical treatment.led normal LV systolic function, no evidence of left atrial appendage thrombus, no PFO, ASD or in chair atrial septal aneurysm. No pericardial effusion. Mild to moderate aortic regurgitation, trivial mitral regurgitation. Left heart catheterization performed on 10/14/2023 revealed severe [place] coronary artery disease with 100% left main stenosis, 100% RCA stenosis, patent MAGAÑA to LAD and diagonal, SVG to PDA, occluded SVG to OM1. Normal left-sided filling pressures. 34+ aortic insufficiency. Mild aortic stenosis. Echocardiogram performed in the office on 08/22/2023 revealed EF of 45 to 50%, moderate left ventricular hypertrophy. Moderate to severe aortic regurgitation and mild to moderate aortic stenosis. Mild to moderate mitral regurgitation, mild tricuspid regurgitation. Pulmonary artery systolic pressure 49 mmHg. Mild pulmonic regurgitation. 10/29 Patient had episode of chest pain last evening and received nitroglycerin which seemed to help. He then tried to sleep but he developed shortness of breath and he was given 1 dose of IV Lasix. He states his shortness of breath was very similar to how he presented to the hospital. Blood pressure 101/63, heart rate 71, pulse ox 93% on 2 L nasal cannula. Patient did have a fever at midnight 101.1. Patient has been continued on IV heparin. Patient is scheduled for cardiac catheterization this morning with Dr. Bobby. Repeat blood work reveals hemoglobin 11.9, WBC 7.6. Sodium 133, potassium 4.1, BUN 36 and creatinine 0.94. Total bilirubin 1.3, AST 153, ALT 52. 10/30 Yesterday, patient underwent cardiac catheterization with Dr. Bobby which revealed MAGAÑA to LAD: Widely patent with junk graft to diagonal branch. There does appear to be a more proximal stenosis just prior to the MAGAÑA insertion in the LAD which is in the order of 60-70% stenosis. SVG to PDA: There is a contained perforation of the proximal SVG with 80% hazy stenosis just distal to the perforation. Otherwise there is no significant stenosis. There are collaterals to the circumflex. SVG to OM: known to be 100% occluded. Patient subsequently underwent PCI of the SVG to PDA with papyrus covered stent. Echocardiogram reveals EF of 35 to 40%. Moderate MR, mild AAS, moderate to severe AR, mild TR. Patient denies having any chest pain. He states he is still having difficulty in breathing. Telemetry is sinus rhythm. Patient has been resumed on Xarelto. Echocardiogram results have been reviewed with the patient. Blood pressure 121/70, heart rate 70, pulse ox 91% on 2 L. Temperature max 100.3. Patient has been seen by Dr. Dominguez and workup is in place for FUO. Patient is scheduled for CT of the chest and liver ultrasound. Physical examination: Gen: This is a 72-year-old male with no acute distress VS: reviewed HEENT: Head is atraumatic, normocephalic. Pupils equal, round. Sclerae is anicteric. NECK: Supple. No JVD. LUNGS: Clear to auscultation. No wheezes or rhonchi. No intercostal retrac tions. HEART: Regular rate and rhythm. No murmur. ABDOMEN: Soft No tenderness. EXTREMITIES: No pedal edema. No calf tenderness. NEUROLOGICAL: Patient is awake, alert and oriented x3. Assessment: Non-ST elevated myocardial infarction status post PCI of the SVG to PDA 10/29 Ischemic cardiomyopathy with EF of 35 to 40% History of coronary artery disease status post CABG four-vessel Paroxysmal atrial fibrillation on Xarelto Aortic valve stenosis Hypertension Dyslipidemia Moderate bilateral pleural carotid stenosis Peripheral artery disease status post right iliac stenting Abnormal liver function test, improving FUO Plan: Multiple medication changes have been made. Patient to continue on the following: Aspirin 81 mg daily, atorvastatin 40 mg at bedtime, Plavix 75 mg daily, Imdur 60 mg daily for spasms, lisinopril 40 mg daily, Xarelto decreased to 15 mg daily Add Aldactone 25 mg daily Add Lasix 20 mg IV daily x 2 doses Discontinue amlodipine as it is contraindicated in cardiomyopathy Reduce atorvastatin to 40 mg at bedtime due to abnormal liver function test Patient has been on good medical therapy for coronary artery disease and concerned that he failed well on high-dose statin. Would recommend the addition of PCSK9 inhibitor as an outpatient. Further recommendations to follow based upon clinical course Nurse practitioner note has been reviewed, I agree with documented findings and plan of care. Patient was seen and examined. Objective - Vital Signs Vital signs: Vital Signs Temp 97.5 F L 10/31/23 06:08 Pulse 70 10/31/23 03:01 Resp 17 10/31/23 03:01 BP 121/70 10/31/23 03:01 Pulse Ox 91 L 10/31/23 03:01 FiO2 Intake & Output 10/30/23 10/31/23 10/31/23 18:59 06:59 18:59 Intake Total 466.147 Output Total 50 Balance 466.147 -50 Weight 97 kg Intake: IV 300 Intake, IV Titration 48.147 Amount Heparin Sod,Pork in 0.45% 48.147 NaCl 25,000 unit In 0.45 % NaCl 1 250ml.bag @ 10. 91 UNITS/KG/HR 9.996 mls/ hr IV .Q24H [facility] Rx#: [id number] Oral 118 Output: Urine 50 Other: Voiding Method Urinal Urinal # Voids 2 - Labs CBC & Chem 7: 10/31/23 06:57 10/31/23 06:57 Labs: Microbiology - Last 24 Hours (Table) 10/29/23 04:05 Blood Culture - Preliminary Blood 10/29/23 03:50 Blood Culture - Preliminary Blood
--- NOTE | 2023-10-31 13:56 | US ---
EXAMINATION TYPE: US abdomen limited DATE OF EXAM: 10/31/2023 COMPARISON: NONE CLINICAL INDICATION: Male, 72 years old with history of Fever and elevated liver enzymes; Fever, elev ated liver enzymes TECHNIQUE: Multiple sonographic images of the right upper quadrant are obtained. FINDINGS: EXAM MEASUREMENTS: Liver Length: 14.9 cm Gallbladder Wall: 0.3 cm CBD: 0.4 cm Right Kidney: 10.7 x 5.0 x 5.9 cm Pancreas: Distal body and pancreatic duct = 0.3cm is mildly prominent Liver: appears slightly fatty infiltrated with a coarse echotexture Gallbladder: no evidence of stones Evidence for sonographic Crenshaw's sign: no CBD: limited evaluation due to overlying bowel gas Right Kidney: no evidence of hydronephrosis *Incidental finding: right pleural effusion IMPRESSION: 1. Mild fatty infiltration liver. 2. Some prominence of the distal pancreatic duct. Consider follow-up with ERCP.
--- NOTE | 2023-10-31 14:52 | P.PN ---
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 On today's evaluation that is 10/31/2023, Patient did have a low-grade fever 100.3 at 3 AM the patient has been is afebrile since then patient is currently on room air and denies having any shortness of breath, the patient denies any chest pain patient did have a mild to moderate, not bring up any sputum, the patient denies any nausea vomiting did not have any abdominal pain and no diarrhea. Patient white count 7.2, creatinine 0.70 Pro-Andrew 0.[address] of the chest did show concern for right lower lobe pneumonia abdominal ultrasound prominence of the distal pancreatic duct Objective - Vital Signs Vital signs: Vital Signs Temp 97.5 F L 10/31/23 06:08 Pulse 70 10/31/23 03:01 Resp 17 10/31/23 03:01 BP 121/70 10/31/23 03:01 Pulse Ox 91 L 10/31/23 03:01 FiO2 Intake & Output 10/30/23 10/31/23 10/31/23 18:59 06:59 18:59 Intake Total 466.147 118 Output Total 50 Balance 466.147 -50 118 Weight 97 kg Intake: IV 300 Intake, IV Titration 48.147 Amount Heparin Sod,Pork in 0.45% 48.147 NaCl 25,000 unit In 0.45 % NaCl 1 250ml.bag @ 10. 91 UNITS/KG/HR 9.996 mls/ hr IV .Q24H [facility] Rx#: [id number] Oral 118 118 Output: Urine 50 Other: Voiding Method Urinal Urinal # Voids 2 - Exam GENERAL DESCRIPTION: An elderly male lying in bed in no distress RESPIRATORY SYSTEM: Unlabored breathing , decreased breath sounds at bases HEART: S1 S2 regular rate and rhythm , ABDOMEN: Soft , no tenderness EXTREMITIES: No edema feet - Labs CBC & Chem 7: 10/31/23 06:57 10/31/23 06:57 Labs: Abnormal Lab Results - Last 24 Hours (Table) 10/31/23 10/31/23 Range/Units 06:57 06:57 Hgb 12.8 L (13.0-17.5) gm/dL Lymphocytes # 0.8 L (1.0-4.8) k/uL Sodium 135 L (137-145) mmol/L BUN 31 H (9-20) mg/dL Glucose 101 H (74-99) mg/dL AST 126 H (17-59) U/L ALT 68 H (4-49) U/L C-Reactive Protein 26.0 H (<1.0) mg/dL Total Protein 6.0 L (6.3-8.2) g/dL Albumin 3.2 L (3.5-5.0) g/dL Microbiology - Last 24 Hours (Table) 10/29/23 04:05 Blood Culture - Preliminary Blood 10/29/23 03:50 Blood Culture - Preliminary Blood Assessment and Plan (1) Fever Current Visit: Yes Status: Acute Code(s): R50.9 - FEVER, UNSPECIFIED SNOMED Code(s): 906699577 (2) Pneumonia Current Visit: Yes Status: Acute Code(s): J18.9 - PNEUMONIA, UNSPECIFIED ORGANISM SNOMED Code(s): 296865739 (3) Elevated LFTs Current Visit: Yes Status: Acute Code(s): R79.89 - OTHER SPECIFIED ABNORMAL FINDINGS OF BLOOD CHEMISTRY SNOMED Code(s): 978625478 Plan: 1patient with episode of fever without clear etiology in this patient apparently has been dealing with a fever for more than a week in the outpatient setting initially did have some respiratory symptoms concerning for possible pneumonia not being admitted to the hospital for NSTEMI, status postcardiac cath and PCI 2-blood cultures has been repeated, procalcitonin is mildly elevated 3-patient did have a CT of the chest suspicious for right lower lobe pneumonia and the patient was started on Rocephin and Zithromax try to obtain a sputum 4-did have elevated liver enzymes hepatitis panel is negative ultrasound suspicious for prominence of the bile duct recommending ERCP Dictation was produced using vLine dictation software. please excuse any grammatical, word or spelling errors. Time with Patient: Less than 30
[2023-10-31 15:33] LABS: Chol/HDL Ratio 2.31 Ratio; VLDL Calculation 14.66 mg/dL (5.00-40.00)
[2023-10-31 15:34] LABS: LDL Cholesterol,Calculated 38.6 mg/dL (0.0-131.0)
[2023-10-31] MEDS: RIVAROXABAN 15 MG TAB PO SCH (17:51)
--- NOTE | 2023-10-31 18:17 | P.PN ---
Subjective Progress Note Date: 10/31/23 HISTORY OF PRESENT ILLNESS This is a 72-year-old male patient of Dr. Florencio Elizabeth with past medical history of coronary artery bypass graft 4 vessel done at [facility] in 2008 with MAGAÑA to LAD and diagonal, saphenous vein graft to PDA, saphenous vein graft to the obtuse marginal branch, paroxysmal atrial fibrillation on Xarelto, aortic valve stenosis aortic regurgitation, hypertension, dyslipidemia, moderate bilateral carotid stenosis, peripheral artery disease status post right iliac stenting, hypothyroidism, benign prostatic hypertrophy, melanoma resected from his back. Patient presented to the emergency department at [facility] after a week history of retrosternal chest pain associated with increased shortness of breath, he was seen recently in the office for what appears to be an upper respiratory tract infection associated with increased shortness of br eath, had laboratory evaluation at that time that showed elevation of the C- reactive protein with normal ESR, blood cultures were negative because of the patient prior history of MRSA induced endocarditis, patient was not feeling well, he decided to go to the ER at 3:00 in the morning because of increased shortness of breath, he was seen in the emergency department he was found to have a pulmonary vascular congestion and he was found to have an elevated troponin at 29, patient did have a left heart catheterization that was done by Dr. Bobby on October 13 and that showed severe [place] CAD disease with 100% occlusion of the left main, 100% occlusion of the RCA, patent MAGAÑA to LAD and diagonal branch, patent SVG to the PDA, and occluded SVG to the obtuse marginal branch, at that time it was recommended for the patient to continue with medical management, he also was found to have aortic regurgitation 3-4+, patient was admitted to the hospital he was started on a heparin drip, and he was seen in consultation by cardiology as well as by pulmonary medicine it was recommended for the patient to go for left heart catheterization tomorrow morning. 10/29: Today, patient underwent LHC with Dr. Bobby and had 2 stent placement in the SVG to the PDA after what appears a perforation in the graft area with 80% stenosis, he had 2 stents placed in that area, and the patient is feeling a lot better after the procedure, he had an echocardiogram that showed evidence of ejection fraction of 35 to 40%, severe bilateral atrial enlargement, severe aortic regurgitation, mild aortic stenosis, as well as increased right sided ventricular pressure, patient did receive Lasix 40 mg IV push in the early hours in the morning because of significant shortness of breath, he is currently down to 2 L nasal cannula, patient continues to be somewhat hypotensive, he is not taking any LANDEN inhibitor at this time or any beta-jennifer due to his hypotension will reevaluate in the next 24 hours, will monitor the patient very closely, patient is being followed by pulmonary medicine as well as cardiology 10/30:. Patient is lying down in bed appears to be more short of breath today, he continues to have a low-grade temperature, he had a CT scan of the chest that showed bilateral upper lobe and right lower lobe infiltrate suggestive of pneumonia, he was started on Rocephin and Zithromax after he was seen by infectious disease, his procalcitonin level is slightly elevated, patient also had an ultrasound of the abdomen that showed prominence of the common bile duct, at 0.3 cm, we will monitor the patient very closely now patient may need to go for an ERCP as an outpatient, but will wait for now until the patient is feeling better, patient has been started back on his home medication, he continues to be somewhat weak, continue to be somewhat short of breath, we will continue to follow-up with the patient very closely. Blood cultures so far negative. REVIEW OF SYSTEMS Constitutional: No fever, no chills, no night sweats. No weight change. No weakness, fatigue or lethargy. No daytime sleepiness. EENT: No headache. No blurred vision or double vision, no loss of vision. No loss of Hearing, no ringing in the ears, no dizziness. No nasal drainage or congestion. No epistaxis. No sore throat. Lungs: positive for shortness of breath, occasional cough, no sputum production. No wheezing. Cardiovascular: Reports no chest pain, no lower extremity edema. No palpitations. No paroxysmal nocturnal dyspnea. No orthopnea. No lightheadedness or dizziness. No syncopal episodes. Abdominal: No abdominal pain. No nausea, vomiting. No diarrhea. No constipation. No bloody or tarry stools. No loss of appetite. Genitourinary: No dysuria, increased frequency, urgency. No urinary retention. Musculoskeletal: No myalgias. No muscle weakness, no gait dysfunction, no frequent falls. No back pain. No neck pain. Integumentary: No wounds, no lesions. No rash or pruritus. No unusual bruising. No change in hair or nails. Neurologic: No aphasia. No facial droop. No change in mentation. No head injury. No headache. No paralysis. No paresthesia. Psychiatric: No depression. No anxiety. No mood swings. Endocrine: No abnormal blood sugars. No weight change. No excessive sweating or thirst. No cold intolerance. PHYSICAL EXAMINATION Gen: This is a 72-year-old male, laying down in bed in no apparent distress. HEENT: Head is atraumatic, normocephalic. Pupils equal, round. Sclerae is anicteric. NECK: Supple. No JVD. No lymphadenopathy. No thyromegaly. LUNGS: Clear to auscultation. No wheezes or rhonchi. No intercostal retractions. HEART: First heart sounds depressed, second heart sounds normal, other systolic ejection murmur 2/6 located in the left sternal border. ABDOMEN: Soft. Bowel sounds are present. No masses. No tenderness. EXTREMITIES: There is no pedal edema, no calf tenderness, dorsalis pedis +2 bilaterally. NEUROLOGICAL: Patient is awake, alert and oriented x3. Cranial nerves 2 through 12 are grossly intact, muscle power 5 out of 5 in upper and lower extremities bilaterally. ASSESSMENT AND PLAN 1. Non-ST elevation myocardial infarction. Patient was started on Plavix 75 mg orally once every day, he is to continue on aspirin 81 mg once every day, the pl an is to resume either heparin drip or or even go back on Xarelto 15 mg orally once every day, continue atorvastatin 80 mg once every day, continue with Zetia 10 mg once every day, start the patient on PCSK9 inhibitor Repatha 140 mg subcutaneously every 2 weeks, monitor the patient very closely, keep LDL cholesterol less than 50 at all the time, 2. Acute systolic heart failure. Continue patient on lisinopril 40 mg orally once every day, spironolactone 25 mg orally once every day, Lasix 20 mg IV push every 24 hours. Monitor the patient's symptoms very closely. 3. Bilateral upper lobes and right lower lobe pneumonia likely community- acquired pneumonia. Continue patient on Rocephin 1 g IV piggyback every 24 hours, Zithromax 500 mg orally once every day, sputum culture, blood culture, o xygen support, infectious diseases following as well as pulmonary. 4. History of coronary artery disease with 4 vessel CABG with recent left heart catheterization October 14, 2023 that showed patent MAGAÑA to LAD diagonal branch, patent SVG to PDA, and total occlusion of SVG to the obtuse marginal branch. Continue treatment as in previous paragraph. Continue patient on isosorbide mononitrate 60 mg orally twice every day, continue Plavix 75 mg once every day, aspirin 81 mg once every day, monitor the patient very closely. 5. Paroxysmal atrial fibrillation currently in a sinus rhythm. continue patient on Xarelto 15 mg orally once every day. 6. Hypertension hypertensive cardiovascular disease. Continue patient on lisinopril 40 mg once every day, spironolactone 25 mg once every day, continue also amlodipine 10 mg orally once every day monitor the patient blood pressure very closely. 7. Hypothyroidism. Continue levothyroxine 175 mcg orally once every day, monitor the patient thyroid function test very closely. 8. Benign prostatic hypertrophy. Continue Flomax or 0.4 mg daily and monitor for urinary retention. 9. Hyperlipidemia. Continue atorvastatin 40 mg orally once every day, may need to be started on Repatha 140 mg subcutaneously every 2 weeks as an outpatient. 10. Peripheral artery disease status post iliac stent. Stable at this time. Continue statin as well as aspirin for secondary prevention. 11. Elevated liver function test with prominence of the common bile duct, patient may need to be seen by GI for possible ERCP as an outpatient. 12. DVT prophylaxis. Patient is currently off heparin drip, will restart the patient back on Xarelto 15 mg orally once every day if okay with cardiology. 13. GI prophylaxis. Start the patient on Protonix 40 mg orally once every day. 14. Overall prognosis is guarded. Objective - Vital Signs Vital signs: Vital Signs Temp 98.7 F 10/31/23 08:35 Pulse 57 L 10/31/23 12:00 Resp 17 10/31/23 12:00 BP 97/55 10/31/23 12:00 Pulse Ox 96 10/31/23 12:00 FiO2 Intake & Output 10/30/23 10/31/23 10/31/23 18:59 06:59 18:59 Intake Total 466.147 118 Output Total 50 Balance 466.147 -50 118 Weight 97 kg 97 kg Intake: IV 300 Intake, IV Titration 48.147 Amount Heparin Sod,Pork in 0.45% 48.147 NaCl 25,000 unit In 0.45 % NaCl 1 250ml.bag @ 10. 91 UNITS/KG/HR 9.996 mls/ hr IV .Q24H [facility] Rx#: [id number] Oral 118 118 Output: Urine 50 Other: Voiding Method Urinal Urinal Urinal # Voids 2 - Labs CBC & Chem 7: 10/31/23 06:57 10/31/23 06:57 Labs: Abnormal Lab Results - Last 24 Hours (Table) 10/31/23 10/31/23 Range/Units 06:57 06:57 Hgb 12.8 L (13.0-17.5) gm/dL Lymphocytes # 0.8 L (1.0-4.8) k/uL Sodium 135 L (137-145) mmol/L BUN 31 H (9-20) mg/dL Glucose 101 H (74-99) mg/dL AST 126 H (17-59) U/L ALT 68 H (4-49) U/L C-Reactive Protein 26.0 H (<1.0) mg/dL Total Protein 6.0 L (6.3-8.2) g/dL Albumin 3.2 L (3.5-5.0) g/dL Microbiology - Last 24 Hours (Table) 10/29/23 04:05 Blood Culture - Preliminary Blood 10/29/23 03:50 Blood Culture - Preliminary Blood
[2023-11-01 08:07] LABS: Basophils % (A) 1 %; Eosinophils # (A) 0.2 k/uL (0-0.7); Eosinophils % (A) 3 %; HGB 11.1 gm/dL (13.0-17.5); Lymphocytes % (A) 14 %; MCH 29.9 pg (25.0-35.0); MCHC 32.6 g/dL (31.0-37.0); MCV 91.9 fL (80.0-100.0); Mean Platelet Volume 8.3; Monocytes # (A) 0.4 k/uL (0-1.0); Monocytes % (A) 6 %; Neutrophils # (A) 5.4 k/uL (1.3-7.7); Neutrophils % (A) 76 %; Platelet Count 300 k/uL (150-450); RDW 12.9 % (11.5-15.5); WBC 7.1 k/uL (3.8-10.6)
[2023-11-01 08:32] LABS: ALT 72 U/L (4-49); AST 98 U/L (17-59); African American GFR (CKD) >90 (>60 ml/min/1.73 sqM); Albumin 2.8 g/dL (3.5-5.0); Alkaline Phosphatase 87 U/L (38-126); Anion Gap 5 mmol/L; Blood Urea Nitrogen 42 mg/dL (9-20); Calcium 8.5 mg/dL (8.4-10.2); Carbon Dioxide 25 mmol/L (22-30); Chloride 105 mmol/L (98-107); Glucose 92 mg/dL (74-99); Non-African American GFR(CKD) 83 (>60 ml/min/1.73 sqM); Potassium 4.1 mmol/L (3.5-5.1); Sodium 135 mmol/L (137-145); Total Bilirubin 0.8 mg/dL (0.2-1.3); Total Protein 5.5 g/dL (6.3-8.2)
[2023-11-01] MEDS: lisinopriL 20 MG TAB PO SCH (10:06)
--- NOTE | 2023-11-01 12:10 | P.PN ---
Subjective Progress Note Date: 11/01/23 Principal diagnosis: Chest pain. Pulmonary consult dated October 29, 2023. 72-year-old male who was seen in the emergency department, room 4. He apparently has not been feeling well for about a week or so prior to admission. He apparently came with complaints of shortness of breath, chest pain, cough, chest congestion, and generally not feeling well. He was seen in the emergency department. The patient was on 2 L of oxygen. He was on IV heparin as well. According to the nurse practitioner who works with cardiology, the patient is scheduled for cardiac catheterization tomorrow. He has a history of a recent catheterization, done on October 13, which revealed severe [place] CAD as well as occluded SVG to OM1 of his previous bypass grafting. He is on blood thinner for his atrial fibrillation, and has a prior history of a MRSA infection. The patient complains of substernal chest discomfort, which has been going on for at least a week or so. According to a family member, the patient was also having fever. Other medical history includes hyperlipidemia, hypertension, hypothyroidism, melanoma, and chronic back pain, with spinal stenosis. He also has a history of kidney stones, previous bypass grafting, and heart catheterization. Current labs include a white count 11.6, hemoglobin 13.3, hematocrit 40.6, platelet count 2 21,000. PTT is 49.4. Sodium 134, potassium 4.2, chloride 99, CO2 25, anion gap 10, BUN 34, and creatinine 0.97. Glucose is 110. Troponins were 29.7 27.3 and 25.3. N-terminal proBNP was 14,200. Studies for influenza, RSV, coronavirus were all negative. Chest x-ray was consistent with pulmonary edema. Progress note dated October 30, 2023. 72-year-old male that was seen in the emergency department yesterday. The patient is being evaluated for chest discomfort, and shortness of breath. He also apparently had a chest congestion, cough, and fever, and was generally just not feeling well. The patient went for heart catheterization today. Currently he is on 2 L, with saturations are 97%. Current laboratory includes a white count 7.6, hemoglobin 11.9, hematocrit 36.5, and a platelet count of 226,000. PTT is 35.8. Sodium 133, potassium 4.1, chlorides 101, CO2 24, BUN 36, and creatinine 0.94. Calcium is 8.3. Procalcitonin level was 0.19. Troponins were quite elevated at 29.7, 27.3, and 25.3. Blood cultures are currently negative. Dr. Bobby's final impression, is noted in the medical record. The patient did have a PCI from the SVG to PDA with a 3.5 x 20 mm covered stent and 3.5 x 15 mm drug-eluting stent. Progress note dated October 31, 2023. 2-year-old male seen in consultation 2 days ago. The patient had a heart catheterization yesterday. His procalcitonin level was 0.19. He is currently on doxycycline. He is getting oxygen by nasal cannula, at 3 L. He is not receiving any IV fluids. Current laboratory data includes a white count 7.2, hemoglobin 12.8, hematocrit 39.7, and a platelet count of 286,000. Sodium 135, potassium 4, chlorides 104, CO2 24, BUN 31, and creatinine 0.70. Glucose was 101. AST is 126. ALT is 68. C-reactive protein is 26. Blood cultures are currently negative. CT scan shows some abnormalities, which could be consistent with pneumonia. Progress note dated 11/01/2023. 72-year-old male seen in consultation 3 days ago. He seen again today in room 355. Currently, the patient was diagnosed as having bilateral multifocal pneumonia. He continues on antibiotics. Is getting oxygen by nasal cannula 2 L. Saturations 93%. No IV fluids. Current labs white count 7.1, hemoglobin 0.1, hematocrit 34, platelet count 300,000. Sodium 135, potassium 4.1, chlorides 105, CO2 25, BUN 42, and creatinine 0.91. AST 98. ALT is 72. He tested negative for Legionella.Blood cultures are currently negative. Chest CT from yesterday, revealed diffuse bilateral multifocal pneumonia. The patient is starting to feel better. Objective - Vital Signs Vital signs: Vital Signs Temp 98.5 F 11/01/23 08:47 Pulse 53 L 11/01/23 09:25 Resp 18 11/01/23 09:25 BP 123/69 11/01/23 10:04 Pulse Ox 93 L 11/01/23 08:47 FiO2 Intake & Output 10/31/23 11/01/23 11/01/23 18:59 06:59 18:59 Intake Total 236 820 180 Balance 236 820 180 Weight 97 kg Intake: IV 40 Invasive Line 1 20 Invasive Line 2 20 Oral 236 780 180 Other: Voiding Method Urinal Urinal Urinal # Voids 2 1 # Bowel Movements 1 - Exam No acute distress, oriented 3. Currently on nasal O2. Saturations are 93% on 2 L. HEENT examination is grossly unremarkable. Mucous membranes are moist. No oral lesions. Neck supple. Full range of motion. No adenopathy thyromegaly or neck vein distention. Cardiovascular examination reveals regular rhythm rate. S1-S2 normal. No S3 or S4. No discernible murmur noted. Heart rate 54 bpm. Lungs reveal scattered crackles. No rhonchi or wheezes. Breath sounds equal. Saturations are 93% on 2 L. Abdomen soft bowel sounds are heard. No masses or tenderness. Extremities are intact. No cyanosis clubbing or edema. Skin is without rash or lesion. Neurologic examination is brief but nonfocal. - Labs CBC & Chem 7: 11/01/23 07:28 11/01/23 07:28 Labs: Abnormal Lab Results - Last 24 Hours (Table) 10/31/23 11/01/23 11/01/23 Range/Units 06:57 07:28 07:28 RBC 3.70 L (4.30-5.90) m/uL Hgb 11.1 L (13.0-17.5) gm/dL Hct 34.0 L (39.0-53.0) % ESR 34 H (0-20) mm/Hr Sodium 135 L (137-145) mmol/L BUN 42 H (9-20) mg/dL AST 98 H (17-59) U/L ALT 72 H (4-49) U/L Total Protein 5.5 L (6.3-8.2) g/dL Albumin 2.8 L (3.5-5.0) g/dL Microbiology - Last 24 Hours (Table) 10/30/23 13:04 Blood Culture - Preliminary Blood 10/29/23 04:05 Blood Culture - Preliminary Blood 10/29/23 03:50 Blood Culture - Preliminary Blood Assessment and Plan Assessment: Non-ST segment elevation myocardial infarction, S/P PCI and stent placement. History of CAD with previous four-vessel bypass grafting. Bilateral pneumonia. Paroxysmal atrial fibrillation. Aortic valve stenosis. History of hypertension. Hyperlipidemia. Hypothyroidism. Peripheral artery disease. History of melanoma. Prior history of MRSA infection. Plan: Plan dated October 29, 2023. The patient is seen in the emergency department, room 4. The patient came in with complaints of fever, chest pain, and shortness of breath. His troponins were quite elevated. The patient likely has a non-ST segment elevation myocardial infarction. The patient had a recent cardiac catheterization, in early October. We will continue to follow along. Additional recommendations and suggestions are forthcoming. A procalcitonin level was ordered. The chest x- ray is consistent with CHF. The patient's N-terminal proBNP was quite elevated. The patient has no prior history of any lung disease. Plan dated October 30, 2023. The patient is seen today in room 355. The patient went to the catheterization laboratory, and did have a PCI, from the SVG, to the PDA. Labs, x-rays, and medications are reviewed. The patient's respiratory status is stable. The patient's procalcitonin level was a bit elevated at 0.19. No obvious source of infection. Studies for influenza, RSV, coronavirus, were negative. We will continue to follow make recommendations along the way. Patient's chest x-ray was consistent with CHF. The patient was initially diagnosed with a non-ST segment elevation myocardial infarction. Plan dated October 31, 2023. The patient was started on azithromycin and ceftriaxone per infectious diseases. CT scan of the chest does show bilateral upper lobe and lower lobe infiltrates, consistent with pneumonia. That would explain his fever and his elevated procalcitonin level. The patient had cardiac catheterization done yesterday, and had a stent placed in his SVG to PDA. Clinically, he looks reasonably well. He is on 3 L. No IV fluids. Labs, x-rays, medications are reviewed. We will continue to follow the patient, and make recommendations along the way. Plan dated 11/01/2023. The patient appears to be doing better. His CAT scan showed evidence of bilateral multifocal pneumonia. He remains on antibiotics. He also had a stent placed a couple days ago, from his SVG, to PDA. He's currently on 2 L of oxygen. Saturations are adequate. He is getting breathing treatments. He is encouraged to cough and clear secretions. In addition he can supply sputum sample from about the [facility]. Labs, x-rays, medications are reviewed. Prog nosis is certainly guarded. Time with Patient: Less than 30
--- NOTE | 2023-11-01 15:38 | P.PN ---
Subjective Progress Note Date: 11/01/23 Principal diagnosis: Reason for follow-up is fever and pneumonia Patient is a 72-year-old male with a past medical history significant for atrial fibrillation hypertension hyperlipidemia prostate disorder did have a history of MRSA bacteremia November 2022 presented to hospital with increasing shortness of breath chest pain has been diagnosed with an [place] in this patient who status post PCI to SVG to PDA did have a fever found at this consultation. On today's evaluation that is 11/01/2023, patient did have improvement in his fever pattern he did have a low-grade fever of 99.7 degrees on hide last night the patient is afebrile this morning was complaining of some shortness of breath last night but doing better this morning patient is currently on 2 L nasal cannula oxygen patient denies having any chest pain denies any worsening cough however mentions slightly productive. Denies any nausea vomiting no abdominal pain no diarrhea Patient white count is 7.1 creatinine 0.91 blood culture has been negative Objective - Vital Signs Vital signs: Vital Signs Temp 98.5 F 11/01/23 08:47 Pulse 56 L 11/01/23 12:10 Resp 18 11/01/23 12:10 BP 93/48 11/01/23 12:10 Pulse Ox 95 11/01/23 12:10 FiO2 Intake & Output 10/31/23 11/01/23 11/01/23 18:59 06:59 18:59 Intake Total 236 820 360 Balance 236 820 360 Weight 97 kg Intake: IV 40 Invasive Line 1 20 Invasive Line 2 20 Oral 236 780 360 Other: Voiding Method Urinal Urinal Urinal # Voids 2 1 1 # Bowel Movements 1 - Exam GENERAL DESCRIPTION: An elderly male lying in bed in no distress RESPIRATORY SYSTEM: Unlabored breathing , decreased breath sounds at bases HEART: S1 S2 regular rate and rhythm , ABDOMEN: Soft , no tenderness EXTREMITIES: No edema feet - Labs CBC & Chem 7: 11/01/23 07:28 11/01/23 07:28 Labs: Abnormal Lab Results - Last 24 Hours (Table) 10/31/23 11/01/23 11/01/23 Range/Units 06:57 07:28 07:28 RBC 3.70 L (4.30-5.90) m/uL Hgb 11.1 L (13.0-17.5) gm/dL Hct 34.0 L (39.0-53.0) % ESR 34 H (0-20) mm/Hr Sodium 135 L (137-145) mmol/L BUN 42 H (9-20) mg/dL AST 98 H (17-59) U/L ALT 72 H (4-49) U/L Total Protein 5.5 L (6.3-8.2) g/dL Albumin 2.8 L (3.5-5.0) g/dL Microbiology - Last 24 Hours (Table) 10/31/23 06:57 Blood Culture - Preliminary Blood 10/29/23 04:05 Blood Culture - Preliminary Blood 10/29/23 03:50 Blood Culture - Preliminary Blood 10/30/23 13:04 Blood Culture - Preliminary Blood Assessment and Plan (1) Fever Current Visit: Yes Status: Acute Code(s): R50.9 - FEVER, UNSPECIFIED SNOMED Code(s): 645640093 (2) Pneumonia Current Visit: Yes Status: Acute Code(s): J18.9 - PNEUMONIA, UNSPECIFIED ORGANISM SNOMED Code(s): 797520920 (3) Elevated LFTs Current Visit: Yes Status: Acute Code(s): R79.89 - OTHER SPECIFIED ABNORMAL FINDINGS OF BLOOD CHEMISTRY SNOMED Code(s): 510484635 Plan: 1patient with episode of fever without clear etiology in this patient apparently has been dealing with a fever for more than a week in the outpatient setting initially did have some respiratory symptoms concerning for possible pneumonia not being admitted to the hospital for NSTEMI, status postcardiac cath and PCI 2-blood cultures has been negative so far, procalcitonin is mildly elevated 3-patient did have a CT of the chest suspicious for right lower lobe pneumonia patient seem to have responded to Rocephin and Zithromax as he did have overall improvement in his fever pattern as well as clinically, try to obtain a sputum 4-patient did have elevated liver enzymes hepatitis panel is negative ultrasound suspicious for prominence of the bile duct recommending ERCP, discussed with the patient and the family in layman terms Dictation was produced using [employer] software. please excuse any grammatical, word or spelling errors. Time with Patient: Less than 30
--- NOTE | 2023-11-02 03:31 | PN ---
PROGRESS NOTE SUBJECTIVE: Mr. Fay is doing reasonably okay. He denies any heartburn like symptoms and angina- like symptoms that he had described previously upon admission. He does not appear short of breath. His night was comfortable. OBJECTIVE: VITAL SIGNS: His blood pressure ranged from 93/48 to 123/69 mmHg, pulse rate in the 50s, afebrile. HEART: Sounds S1, S2 are normal. There is an audible systolic murmur. LUNGS: Clear. No rhonchi, no crackles. IMPRESSION: Acute myocardial infarction involving the SVG graft to the RCA, status post stenting yesterday by Dr. Bobby. Ischemic cardiomyopathy, reduced LV systolic function. Ejection fraction 35%. Suggest, Continue dual anti-platelet therapy with aspirin and Plavix. Reduce the dose of Imdur to 30 mg p.o. daily. Reduce the dose of lisinopril to 20 mg p.o. daily. Continue metoprolol 25 mg twice daily and maximize tomorrow. Continue Aldactone. PT consult for ambulation. Detailed discussion with the patient and his son regarding events over the last few days and future management. MMODL / IJN: [id number] /
[2023-11-02] MEDS: ISOSORBIDE MONONITRATE ER 30 MG TAB.ER.24H PO SCH (08:54)
--- NOTE | 2023-11-02 11:29 | P.PN ---
Subjective Progress Note Date: 11/01/23 HISTORY OF PRESENT ILLNESS This is a 72-year-old male patient of Dr. Florencio Elizabeth with past medical history of coronary artery bypass graft [address] [facility] in 2008 with MAGAÑA to LAD and diagonal, saphenous vein graft to PDA, saphenous vein graft to the obtuse marginal branch, paroxysmal atrial fibrillation on Xarelto, aortic valve stenosis aortic regurgitation, hypertension, dyslipidemia, moderate bilateral carotid stenosis, peripheral artery disease status post right iliac stenting, hypothyroidism, benign prostatic hypertrophy, melanoma resected from his back. Patient presented to the emergency department at [facility] after a week history of retrosternal chest pain associated with increased shortness of breath, he was seen recently in the office for what appears to be an upper respiratory tract infection associated with increased shortness of br eath, had laboratory evaluation at that time that showed elevation of the C- reactive protein with normal ESR, blood cultures were negative because of the patient prior history of MRSA induced endocarditis, patient was not feeling well, he decided to go to the ER at 3:00 in the morning because of increased shortness of breath, he was seen in the emergency department he was found to have a pulmonary vascular congestion and he was found to have an elevated troponin at 29, patient did have a left heart catheterization that was done by Dr. Bobby on October 13 and that showed severe [place] CAD disease with 100% occlusion of the left main, 100% occlusion of the RCA, patent MAGAÑA to LAD and diagonal branch, patent SVG to the PDA, and occluded SVG to the obtuse marginal branch, at that time it was recommended for the patient to continue with medical management, he also was found to have aortic regurgitation 3-4+, patient was admitted to the hospital he was started on a heparin drip, and he was seen in consultation by cardiology as well as by pulmonary medicine it was recommended for the patient to go for left heart catheterization tomorrow morning. 10/29: Today, patient underwent LHC with Dr. Bobby and had 2 stent placement in the SVG to the PDA after what appears a perforation in the graft area with 80% stenosis, he had 2 stents placed in that area, and the patient is feeling a lot better after the procedure, he had an echocardiogram that showed evidence of ejection fraction of 35 to 40%, severe bilateral atrial enlargement, severe aortic regurgitation, mild aortic stenosis, as well as increased right sided ventricular pressure, patient did receive Lasix 40 mg IV push in the early hours in the morning because of significant shortness of breath, he is currently down to 2 L nasal cannula, patient continues to be somewhat hypotensive, he is not taking any LANDEN inhibitor at this time or any beta-jennifer due to his hypotension will reevaluate in the next 24 hours, will monitor the patient very closely, patient is being followed by pulmonary medicine as well as cardiology 10/30:. Patient is lying down in bed appears to be more short of breath today, he continues to have a low-grade temperature, he had a CT scan of the chest that showed bilateral upper lobe and right lower lobe infiltrate suggestive of pneumonia, he was started on Rocephin and Zithromax after he was seen by infectious disease, his procalcitonin level is slightly elevated, patient also had an ultrasound of the abdomen that showed prominence of the common bile duct, at 0.3 cm, we will monitor the patient very closely now patient may need to go for an ERCP as an outpatient, but will wait for now until the patient is feeling better, patient has been started back on his home medication, he continues to be somewhat weak, continue to be somewhat short of breath, we will continue to follow-up with the patient very closely. Blood cultures so far negative. 10/31: Patient is walking around appears to be more fatigued, more dyspneic on exertion, he has no orthopnea, he has no PND, he has no edema, he is worried about his current situation, I explained to the patient the current situation, and he is having ischemic cardiomyopathy, this is related to her recent non-ST elevation myocardial infarction as well as severe aortic regurgitation, we will continue to add medications for goal-directed medical therapy add SGLT2 at this point in time we will help the patient quite a bit, amlodipine was discontinued thankfully and patient was started on Farxiga 10 mg once every day per cardiology, also carvedilol 3.25 mg orally twice every day. REVIEW OF SYSTEMS Constitutional: No fever, no chills, no night sweats. No weight change. No weakness, fatigue or lethargy. No daytime sleepiness. EENT: No headache. No blurred vision or double vision, no loss of vision. No loss of Hearing, no ringing in the ears, no dizziness. No nasal drainage or congestion. No epistaxis. No sore throat. Lungs: positive for shortness of breath, occasional cough, no sputum production. No wheezing. Cardiovascular: Reports no chest pain, no lower extremity edema. No p alpitations. No paroxysmal nocturnal dyspnea. No orthopnea. No lightheadedness or dizziness. No syncopal episodes. Abdominal: No abdominal pain. No nausea, vomiting. No diarrhea. No constipation. No bloody or tarry stools. No loss of appetite. Genitourinary: No dysuria, increased frequency, urgency. No urinary retention. Musculoskeletal: No myalgias. No muscle weakness, no gait dysfunction, no frequent falls. No back pain. No neck pain. Integumentary: No wounds, no lesions. No rash or pruritus. No unusual bruising. No change in hair or nails. Neurologic: No aphasia. No facial droop. No change in mentation. No head injury. No headache. No paralysis. No paresthesia. Psychiatric: No depression. No anxiety. No mood swings. Endocrine: No abnormal blood sugars. No weight change. No excessive sweating or thirst. No cold intolerance. PHYSICAL EXAMINATION Gen: This is a 72-year-old male, laying down in bed in no apparent distress. HEENT: Head is atraumatic, normocephalic. Pupils equal, round. Sclerae is anicteric. NECK: Supple. No JVD. No lymphadenopathy. No thyromegaly. LUNGS: Clear to auscultation. No wheezes or rhonchi. No intercostal retractions. HEART: First heart sounds depressed, second heart sounds normal, other systolic ejection murmur 2/6 located in the left sternal border. ABDOMEN: Soft. Bowel sounds are present. No masses. No tenderness. EXTREMITIES: There is no pedal edema, no calf tenderness, dorsalis pedis +2 bi laterally. NEUROLOGICAL: Patient is awake, alert and oriented x3. Cranial nerves 2 through 12 are grossly intact, muscle power 5 out of 5 in upper and lower extremities bilaterally. ASSESSMENT AND PLAN 1. Non-ST elevation myocardial infarction. Patient was started on Plavix 75 mg orally once every day, he is to continue on aspirin 81 mg once every day, Xarelto 15 mg orally once every day, continue atorvastatin 40 mg once every day, will start the patient on PCSK9 inhibitor as outpatient Repatha 140 mg subcutaneously every 2 weeks, monitor the patient very closely, keep LDL cholesterol less than 50 at all the time, 2. Acute systolic heart failure due to ischemic cardiomyopathy. Patient was placed on lisinopril 10 mg orally once every day, labetalol 3.125 mg orally twice every day, spironolactone 25 mg once every day, Farxiga 10 mg once every day, monitor input and output and daily weight. 3. Bilateral upper lobes and right lower lobe pneumonia likely community- acquired pneumonia. Continue patient on Rocephin 2 g every back every 24 hours, pulmonary as well as infectious ease are following. 4. History of coronary artery disease with 4 vessel CABG with recent left heart catheterization October 14, 2023 that showed patent MAGAÑA to LAD diagonal branch, patent SVG to PDA, and total occlusion of SVG to the obtuse marginal branch. Continue treatment as in previous paragraph. Continue patient on isosorbide mononitrate 30 mg once every day, carvedilol 3.125 mg orally twice every day, lisinopril 10 mg once every day, aspirin 81 mg once every day, Plavix 75 mg once every day. 5. Paroxysmal atrial fibrillation currently in a sinus rhythm. continue patient on Xarelto 15 mg orally once every day. 6. Hypertension hypertensive cardiovascular disease. Continue patient on lisinopril 10 mg once every day, spironolactone 25 mg once every day, continue patient on carvedilol 3.25 mg twice every day. 7. Hypothyroidism. Continue levothyroxine 175 mcg orally once every day, monitor the patient thyroid function test very closely. 8. Benign prostatic hypertrophy. Continue Flomax or 0.4 mg daily and monitor for urinary retention. 9. Hyperlipidemia. Continue atorvastatin 40 mg orally once every day, may need to be started on Repatha 140 mg subcutaneously every 2 weeks as an outpatient. 10. Peripheral artery disease status post iliac stent. Stable at this time. Continue statin as well as aspirin for secondary prevention. 11. Elevated liver function test with prominence of the common bile duct, patient may need to be seen by GI for possible ERCP as an outpatient. 12. DVT prophylaxis. Continue Xarelto 15 mg orally once every day. 13. GI prophylaxis. on Protonix 40 mg orally once every day. 14. Overall prognosis is guarded. 15. Hopefully home in 1 to 2 days per Objective - Vital Signs Vital signs: Vital Signs Temp 98.5 F 11/01/23 08:47 Pulse 56 L 11/01/23 13:42 Resp 18 11/01/23 13:42 BP 93/48 11/01/23 12:10 Pulse Ox 95 11/01/23 12:10 FiO2 Intake & Output 10/31/23 11/01/23 11/01/23 18:59 06:59 18:59 Intake Total 236 820 360 Balance 236 820 360 Weight 97 kg Intake: IV 40 Invasive Line 1 20 Invasive Line 2 20 Oral 236 780 360 Other: Voiding Method Urinal Urinal Urinal # Voids 2 1 1 # Bowel Movements 1 - Labs CBC & Chem 7: 11/01/23 07:28 11/01/23 07:28 Labs: Abnormal Lab Results - Last 24 Hours (Table) 10/31/23 11/01/23 11/01/23 Range/Units 06:57 07:28 07:28 RBC 3.70 L (4.30-5.90) m/uL Hgb 11.1 L (13.0-17.5) gm/dL Hct 34.0 L (39.0-53.0) % ESR 34 H (0-20) mm/Hr Sodium 135 L (137-145) mmol/L BUN 42 H (9-20) mg/dL AST 98 H (17-59) U/L ALT 72 H (4-49) U/L Total Protein 5.5 L (6.3-8.2) g/dL Albumin 2.8 L (3.5-5.0) g/dL Microbiology - Last 24 Hours (Table) 10/31/23 06:57 Blood Culture - Preliminary Blood 10/29/23 04:05 Blood Culture - Preliminary Blood 10/29/23 03:50 Blood Culture - Preliminary Blood 10/30/23 13:04 Blood Culture - Preliminary Blood
[2023-11-02] MEDS: DAPAGLIFLOZIN PROPANEDIOL 10 MG TABLET PO SCH (12:08)
--- NOTE | 2023-11-02 12:23 | P.PN ---
Subjective Progress Note Date: 11/02/23 HISTORY OF PRESENT ILLNESS This is a 72-year-old male patient of Dr. Florencio Elizabeth with past medical history of coronary artery bypass graft 4 vessel done at [facility] in 2008 with MAGAÑA to LAD and diagonal, saphenous vein graft to PDA, saphenous vein graft to the obtuse marginal branch, paroxysmal atrial fibrillation on Xarelto, aortic valve stenosis aortic regurgitation, hypertension, dyslipidemia, moderate bilateral carotid stenosis, peripheral artery disease status post right iliac stenting, hypothyroidism, benign prostatic hypertrophy, melanoma resected from his back. Patient presented to the emergency department at [facility] after a week history of retrosternal chest pain associated with increased shortness of breath, he was seen recently in the office for what appears to be an upper respiratory tract infection associated with increased shortness of br eath, had laboratory evaluation at that time that showed elevation of the C- reactive protein with normal ESR, blood cultures were negative because of the patient prior history of MRSA induced endocarditis, patient was not feeling well, he decided to go to the ER at 3:00 in the morning because of increased shortness of breath, he was seen in the emergency department he was found to have a pulmonary vascular congestion and he was found to have an elevated troponin at 29, patient did have a left heart catheterization that was done by Dr. Bobby on October 13 and that showed severe [place] CAD disease with 100% occlusion of the left main, 100% occlusion of the RCA, patent MAGAÑA to LAD and diagonal branch, patent SVG to the PDA, and occluded SVG to the obtuse marginal branch, at that time it was recommended for the patient to continue with medical management, he also was found to have aortic regurgitation 3-4+, patient was admitted to the hospital he was started on a heparin drip, and he was seen in consultation by cardiology as well as by pulmonary medicine it was recommended for the patient to go for left heart catheterization tomorrow morning. 10/29: Today, patient underwent LHC with Dr. Bobby and had 2 stent placement in the SVG to the PDA after what appears a perforation in the graft area with 80% stenosis, he had 2 stents placed in that area, and the patient is feeling a lot better after the procedure, he had an echocardiogram that showed evidence of ejection fraction of 35 to 40%, severe bilateral atrial enlargement, severe aortic regurgitation, mild aortic stenosis, as well as increased right sided ventricular pressure, patient did receive Lasix 40 mg IV push in the early hours in the morning because of significant shortness of breath, he is currently down to 2 L nasal cannula, patient continues to be somewhat hypotensive, he is not taking any LANDEN inhibitor at this time or any beta-jennifer due to his hypotension will reevaluate in the next 24 hours, will monitor the patient very closely, patient is being followed by pulmonary medicine as well as cardiology 10/30:. Patient is lying down in bed appears to be more short of breath today, he continues to have a low-grade temperature, he had a CT scan of the chest that showed bilateral upper lobe and right lower lobe infiltrate suggestive of pneumonia, he was started on Rocephin and Zithromax after he was seen by infectious disease, his procalcitonin level is slightly elevated, patient also had an ultrasound of the abdomen that showed prominence of the common bile duct, at 0.3 cm, we will monitor the patient very closely now patient may need to go for an ERCP as an outpatient, but will wait for now until the patient is feeling better, patient has been started back on his home medication, he continues to be somewhat weak, continue to be somewhat short of breath, we will continue to follow-up with the patient very closely. Blood cultures so far negative. 10/31: Patient is walking around appears to be more fatigued, more dyspneic on exertion, he has no orthopnea, he has no PND, he has no edema, he is worried about his current situation, I explained to the patient the current situation, and he is having ischemic cardiomyopathy, this is related to her recent non-ST elevation myocardial infarction as well as severe aortic regurgitation, we will continue to add medications for goal-directed medical therapy add SGLT2 at this point in time we will help the patient quite a bit, amlodipine was discontinued thankfully and patient was started on Farxiga 10 mg once every day per cardiology, also carvedilol 3.25 mg orally twice every day. 11/01: Patient is feeling a bit better today, his blood pressure is better less hypotensive, he seems to be tolerating treatment very well, his medication were adjusted to coincide with the goal-directed medical therapy GDMT. Will continue current treatment plan, monitor the patient in the hospital for another 1 or 2 days, hopefully he will be discharged home on Saturday. REVIEW OF SYSTEMS Constitutional: No fever, no chills, no night sweats. No weight change. No weakness, fatigue or lethargy. No daytime sleepiness. EENT: No headache. No blurred vision or double vision, no loss of vision. No loss of Hearing, no ringing in the ears, no dizziness. No nasal drainage or congestion. No epistaxis. No sore throat. Lungs: positive for shortness of breath, occasional cough, no sputum production. No wheezing. Cardiovascular: Reports no chest pain, no lower extremity edema. No palpitations. No paroxysmal nocturnal dyspnea. No orthopnea. No lightheadedness or dizziness. No syncopal episodes. Abdominal: No abdominal pain. No nausea, vomiting. No diarrhea. No constipation. No bloody or tarry stools. No loss of appetite. Genitourinary: No dysuria, increased frequency, urgency. No urinary retention. Musculoskeletal: No myalgias. No muscle weakness, no gait dysfunction, no frequent falls. No back pain. No neck pain. Integumentary: No wounds, no lesions. No rash or pruritus. No unusual bruising. No change in hair or nails. Neurologic: No aphasia. No facial droop. No change in mentation. No head injury. No headache. No paralysis. No paresthesia. Psychiatric: No depression. No anxiety. No mood swings. Endocrine: No abnormal blood sugars. No weight change. No excessive sweating or thirst. No cold intolerance. PHYSICAL EXAMINATION Gen: This is a 72-year-old male, laying down in bed in no apparent distress. HEENT: Head is atraumatic, normocephalic. Pupils equal, round. Sclerae is anicteric. NECK: Supple. No JVD. No lymphadenopathy. No thyromegaly. LUNGS: Clear to auscultation. No wheezes or rhonchi. No intercostal retractions. HEART: First heart sounds depressed, second heart sounds normal, other systolic ejection murmur 2/6 located in the left sternal border. ABDOMEN: Soft. Bowel sounds are present. No masses. No tenderness. EXTREMITIES: There is no pedal edema, no calf tenderness, dorsalis pedis +2 bilaterally. NEUROLOGICAL: Patient is awake, alert and oriented x3. Cranial nerves 2 through 12 are grossly intact, muscle power 5 out of 5 in upper and lower extremities bilaterally. ASSESSMENT AND PLAN 1. Non-ST elevation myocardial infarction. Patient was started on Plavix 75 mg orally once every day, he is to continue on aspirin 81 mg once every day, Xarelto 15 mg orally once every day, continue atorvastatin 40 mg once every day, will start the patient on PCSK9 inhibitor as outpatient Repatha 140 mg subcutaneously every 2 weeks, monitor the patient very closely, keep LDL cholesterol less than 50 at all the time, 2. Acute systolic heart failure due to ischemic cardiomyopathy. Patient was placed on lisinopril 10 mg orally once every day, labetalol 3.125 mg orally twice every day, spironolactone 25 mg once every day, Farxiga 10 mg once every day, monitor input and output and daily weight. 3. Bilateral upper lobes and right lower lobe pneumonia likely community- acquired pneumonia. Continue patient on Rocephin 2 g every back every 24 hours, pulmonary as well as infectious ease are following. 4. History of coronary artery disease with 4 vessel CABG with recent left heart catheterization October 14, 2023 that showed patent MAGAÑA to LAD diagonal branch, patent SVG to PDA, and total occlusion of SVG to the obtuse marginal branch. Continue treatment as in previous paragraph. Continue patient on isosorbide mononitrate 30 mg once every day, carvedilol 3.125 mg orally twice every day, lisinopril 10 mg once every day, aspirin 81 mg once every day, Plavix 75 mg once every day. 5. Paroxysmal atrial fibrillation currently in a sinus rhythm. continue patient on Xarelto 15 mg orally once every day. 6. Hypertension hypertensive cardiovascular disease. Continue patient on li sinopril 10 mg once every day, spironolactone 25 mg once every day, continue patient on carvedilol 3.25 mg twice every day. 7. Hypothyroidism. Continue levothyroxine 175 mcg orally once every day, monitor the patient thyroid function test very closely. 8. Benign prostatic hypertrophy. Continue Flomax or 0.4 mg daily and monitor for urinary retention. 9. Hyperlipidemia. Continue atorvastatin 40 mg orally once every day, may need to be started on Repatha 140 mg subcutaneously every 2 weeks as an outpatient. 10. Peripheral artery disease status post iliac stent. Stable at this time. Continue statin as well as aspirin for secondary prevention. 11. Elevated liver function test with prominence of the common bile duct, patient may need to be seen by GI for possible ERCP as an outpatient. 12. DVT prophylaxis. Continue Xarelto 15 mg orally once every day. 13. GI prophylaxis. on Protonix 40 mg orally once every day. 14. Overall prognosis is guarded. 15. Hopefully home in 1 to 2 days per Objective - Vital Signs Vital signs: Vital Signs Temp 98.5 F 11/02/23 09:07 Pulse 58 L 11/02/23 09:07 Resp 16 11/02/23 09:07 BP 112/55 11/02/23 09:07 Pulse Ox 96 11/02/23 09:07 FiO2 Intake & Output 11/01/23 11/02/23 11/02/23 18:59 06:59 18:59 Intake Total 540 706 Balance 540 706 Intake: IV 40 Invasive Line 1 20 Invasive Line 2 20 Oral 540 [id number] Other: Voiding Method Urinal Urinal Urinal # Voids 2 1 - Labs CBC & Chem 7: 11/01/23 07:28 11/01/23 07:28 Labs: Microbiology - Last 24 Hours (Table) 10/30/23 13:04 Blood Culture - Preliminary Blood 10/31/23 06:57 Blood Culture - Preliminary Blood 10/29/23 04:05 Blood Culture - Preliminary Blood 10/29/23 03:50 Blood Culture - Preliminary Blood
--- NOTE | 2023-11-02 12:31 | P.PN ---
Subjective Progress Note Date: 11/02/23 Principal diagnosis: Chest pain. Pulmonary consult dated October 29, 2023. 72-year-old male who was seen in the emergency department, room 4. He apparently has not been feeling well for about a week or so prior to admission. He apparently came with complaints of shortness of breath, chest pain, cough, chest congestion, and generally not feeling well. He was seen in the emergency department. The patient was on 2 L of oxygen. He was on IV heparin as well. According to the nurse practitioner who works with cardiology, the patient is scheduled for cardiac catheterization tomorrow. He has a history of a recent catheterization, done on October 13, which revealed severe [place] CAD as well as occluded SVG to OM1 of his previous bypass grafting. He is on blood thinner for his atrial fibrillation, and has a prior history of a MRSA infection. The patient complains of substernal chest discomfort, which has been going on for at least a week or so. According to a family member, the patient was also having fever. Other medical history includes hyperlipidemia, hypertension, hypothyroidism, melanoma, and chronic back pain, with spinal stenosis. He also has a history of kidney stones, previous bypass grafting, and heart catheterization. Current labs include a white count 11.6, hemoglobin 13.3, hematocrit 40.6, platelet count 2 21,000. PTT is 49.4. Sodium 134, potassium 4.2, chloride 99, CO2 25, anion gap 10, BUN 34, and creatinine 0.97. Glucose is 110. Troponins were 29.7 27.3 and 25.3. N-terminal proBNP was 14,200. Studies for influenza, RSV, coronavirus were all negative. Chest x-ray was consistent with pulmonary edema. Progress note dated October 30, 2023. 72-year-old male that was seen in the emergency department yesterday. The patient is being evaluated for chest discomfort, and shortness of breath. He also apparently had a chest congestion, cough, and fever, and was generally just not feeling well. The patient went for heart catheterization today. Currently he is on 2 L, with saturations are 97%. Current laboratory includes a white count 7.6, hemoglobin 11.9, hematocrit 36.5, and a platelet count of 226,000. PTT is 35.8. Sodium 133, potassium 4.1, chlorides 101, CO2 24, BUN 36, and creatinine 0.94. Calcium is 8.3. Procalcitonin level was 0.19. Troponins were quite elevated at 29.7, 27.3, and 25.3. Blood cultures are currently negative. Dr. Bobby's final impression, is noted in the medical record. The patient did have a PCI from the SVG to PDA with a 3.5 x 20 mm covered stent and 3.5 x 15 mm drug-eluting stent. Progress note dated October 31, 2023. 2-year-old male seen in consultation 2 days ago. The patient had a heart catheterization yesterday. His procalcitonin level was 0.19. He is currently on doxycycline. He is getting oxygen by nasal cannula, at 3 L. He is not receiving any IV fluids. Current laboratory data includes a white count 7.2, hemoglobin 12.8, hematocrit 39.7, and a platelet count of 286,000. Sodium 135, potassium 4, chlorides 104, CO2 24, BUN 31, and creatinine 0.70. Glucose was 101. AST is 126. ALT is 68. C-reactive protein is 26. Blood cultures are currently negative. CT scan shows some abnormalities, which could be consistent with pneumonia. Progress note dated 11/01/2023. 72-year-old male seen in consultation 3 days ago. He seen again today in room 355. Currently, the patient was diagnosed as having bilateral multifocal pneumonia. He continues on antibiotics. Is getting oxygen by nasal cannula 2 L. Saturations 93%. No IV fluids. Current labs white count 7.1, hemoglobin 0.1, hematocrit 34, platelet count 300,000. Sodium 135, potassium 4.1, chlorides 105, CO2 25, BUN 42, and creatinine 0.91. AST 98. ALT is 72. He tested negative for Legionella.Blood cultures are currently negative. Chest CT from yesterday, revealed diffuse bilateral multifocal pneumonia. The patient is starting to feel better. Progress note dated November 10, 2023. 72-year-old male seen in consultation 4 days ago. He is seen again in room 355. The patient was recently diagnosed as having bilateral multifocal pneumonia. He continues on antibiotics. He also continues on oxygen, at 3 L. Saturations are 96%. The rest of his vital signs are stable. No new laboratory data today. Cultures are all negative. No recent x-rays to report. Objective - Vital Signs Vital signs: Vital Signs Temp 98.5 F 11/02/23 09:07 Pulse 58 L 11/02/23 09:07 Resp 16 11/02/23 09:07 BP 112/55 11/02/23 09:07 Pulse Ox 96 11/02/23 09:07 FiO2 Intake & Output 11/01/23 11/02/23 11/02/23 18:59 06:59 18:59 Intake Total 540 706 118 Balance 540 706 118 Weight 91.9 kg Intake: IV 40 Invasive Line 1 20 Invasive Line 2 20 Oral 540 666 118 Other: Voiding Method Urinal Urinal Urinal # Voids 2 1 - Exam No acute distress, oriented 3. Currently on nasal O2. Saturations are 96 % on 3 L. HEENT examination is grossly unremarkable. Mucous membranes are moist. No oral lesions. Neck supple. Full range of motion. No adenopathy thyromegaly or neck vein distention. Cardiovascular examination reveals regular rhythm rate. S1-S2 normal. No S3 or S4. No discernible murmur noted. Heart rate 64 bpm. Lungs reveal scattered crackles. No rhonchi or wheezes. Breath sounds equal. Saturations are 93% on 2 L. Abdomen soft bowel sounds are heard. No masses or tenderness. Extremities are intact. No cyanosis clubbing or edema. Skin is without rash or lesion. Neurologic examination is brief but nonfocal. - Labs CBC & Chem 7: 11/01/23 07:28 11/01/23 07:28 Labs: Microbiology - Last 24 Hours (Table) 10/30/23 13:04 Blood Culture - Preliminary Blood 10/31/23 06:57 Blood Culture - Preliminary Blood 10/29/23 04:05 Blood Culture - Preliminary Blood 10/29/23 03:50 Blood Culture - Preliminary Blood Assessment and Plan Assessment: Non-ST segment elevation myocardial infarction, S/P PCI and stent placement. History of CAD with previous four-vessel bypass grafting. Bilateral pneumonia. Paroxysmal atrial fibrillation. Aortic valve stenosis. History of hypertension. Hyperlipidemia. Hypothyroidism. Peripheral artery disease. History of melanoma. Prior history of MRSA infection. Plan: Plan dated October 29, 2023. The patient is seen in the emergency department, room 4. The patient came in with complaints of fever, chest pain, and shortness of breath. His troponins were quite elevated. The patient likely has a non-ST segment elevation myocardial infarction. The patient had a recent cardiac catheterization, in early October. We will continue to follow along. Additional recommendations and suggestions are forthcoming. A procalcitonin level was ordered. The chest x- ray is consistent with CHF. The patient's N-terminal proBNP was quite elevated. The patient has no prior history of any lung disease. Plan dated October 30, 2023. The patient is seen today in room 355. The patient went to the catheterization laboratory, and did have a PCI, from the SVG, to the PDA. Labs, x-rays, and medications are reviewed. The patient's respiratory status is stable. The patient's procalcitonin level was a bit elevated at 0.19. No obvious source of infection. Studies for influenza, RSV, coronavirus, were negative. We will continue to follow make recommendations along the way. Patient's chest x-ray was consistent with CHF. The patient was initially diagnosed with a non-ST segment elevation myocardial infarction. Plan dated October 31, 2023. The patient was started on azithromycin and ceftriaxone per infectious diseases. CT scan of the chest does show bilateral upper lobe and lower lobe infiltrates, consistent with pneumonia. That would explain his fever and his elevated procalcitonin level. The patient had cardiac catheterization done yesterday, and had a stent placed in his SVG to PDA. Clinically, he looks reasonably well. He is on 3 L. No IV fluids. Labs, x-rays, medications are reviewed. We will continue to follow the patient, and make recommendations along the way. Plan dated 11/01/2023. The patient appears to be doing better. His CAT scan showed evidence of bilateral multifocal pneumonia. He remains on antibiotics. He also had a stent placed a couple days ago, from his SVG, to PDA. He's currently on 2 L of oxygen. Saturations are adequate. He is getting breathing treatments. He is encouraged to cough and clear secretions. In addition he can supply sputum sample from [facility] the [facility]. Labs, x-rays, medications are reviewed. Prognosis is certainly guarded. Plan dated November 02, 2023. The patient is doing very well. The patient is currently on appropriate antibiotics. The patient does have bilateral pneumonia, which explains his elevated procalcitonin level and his fever prior to admission. Labs, x-rays, and medications are reviewed. The patient's 3 L saturation is 96%. Prognosis is guarded. Labs, x-rays, and all medications are reviewed. We will continue to follow. Time with Patient: Less than 30
--- NOTE | 2023-11-02 12:37 | P.PN ---
Subjective Progress Note Date: 11/02/23 the patient is a 72-year-old male who underwent stenting of a saphenous vein graft on 10/30/[address] Bobby. Postoperatively he has done well. Overnight he does report some orthopnea, but states he feels well sitting up in the recliner chair this morning. He denies any chest pain or difficulty br eathing. No dizziness or lightheadedness. GENERAL: Well-appearing, well-nourished and in no acute distress. NECK: Supple without JVD or thyromegaly. LUNGS: Breath sounds clear to auscultation bilaterally. Respiration equal and unlabored. No wheezes, rales or rhonchi. HEART: Regular rate and rhythm without murmurs, rubs or gallops. S1 and S2 heard. EXTREMITIES: Normal range of motion, no edema. No clubbing or cyanosis. Peripheral pulses intact and strong. TELEMETRY: sinus bradycardia rhythm overnight IMPRESSION: Non-ST elevated myocardial infarction status post PCI of the SVG to PDA 10/29 Ischemic cardiomyopathy with EF of 35 to 40% History of coronary artery disease status post CABG four-vessel Paroxysmal atrial fibrillation on Xarelto Aortic valve stenosis Hypertension Dyslipidemia Peripheral artery disease status post right iliac stenting PLAN: decrease lisinopril to 10 mg Switch to carvedilol to avoid bradycardia Further recommendations based on clinical course I am dictating on behalf of Dr Arron Collier's history/physical and assessment/plan. Objective - Vital Signs Vital signs: Vital Signs Temp 98.5 F 11/02/23 09:07 Pulse 58 L 11/02/23 09:07 Resp 16 11/02/23 09:07 BP 112/55 11/02/23 09:07 Pulse Ox 96 11/02/23 09:07 FiO2 Intake & Output 11/01/23 11/02/23 11/02/23 18:59 06:59 18:59 Intake Total 540 706 Balance 540 706 Intake: IV 40 Invasive Line 1 20 Invasive Line 2 20 Oral 540 666 Other: Voiding Method Urinal Urinal Urinal # Voids 2 1 - Labs CBC & Chem 7: 11/01/23 07:28 11/01/23 07:28 Labs: Microbiology - Last 24 Hours (Table) 10/30/23 13:04 Blood Culture - Preliminary Blood 10/31/23 06:57 Blood Culture - Preliminary Blood 10/29/23 04:05 Blood Culture - Preliminary Blood 10/29/23 03:50 Blood Culture - Preliminary Blood
--- NOTE | 2023-11-02 14:21 | P.PN ---
Subjective Progress Note Date: 11/02/23 Principal diagnosis: Reason for follow-up is fever and pneumonia Patient is a 72-year-old male with a past medical history significant for atrial fibrillation hypertension hyperlipidemia prostate disorder did have a history of MRSA bacteremia November 2022 presented to hospital with increasing shortness of breath chest pain has been diagnosed with an GA in this patient who status post PCI to SVG to PDA did have a fever found at this consultation. On today's evaluation that is 11/02/2023, Patient is afebrile this morning patient denies having any chest pain shortness of breath or any worsening cough or sputum production, the patient is breathing comfortably and currently on 3 L current oxygen, patient denies any abdominal pain no diarrhea no nausea no vomiting. Patient did not have any lab draw today blood cultures currently pending Objective - Vital Signs Vital signs: Vital Signs Temp 98.5 F 11/02/23 09:07 Pulse 58 L 11/02/23 09:07 Resp 16 11/02/23 09:07 BP 112/55 11/02/23 09:07 Pulse Ox 96 11/02/23 09:07 FiO2 Intake & Output 11/01/23 11/02/23 11/02/23 18:59 06:59 18:59 Intake Total 540 706 Balance 540 706 Intake: IV 40 Invasive Line 1 20 Invasive Line 2 20 Oral 540 666 Other: Voiding Method Urinal Urinal Urinal # Voids 2 1 - Exam GENERAL DESCRIPTION: An elderly male lying in bed in no distress RESPIRATORY SYSTEM: Unlabored breathing , decreased breath sounds at bases HEART: S1 S2 regular rate and rhythm , ABDOMEN: Soft , no tenderness EXTREMITIES: No edema feet - Labs CBC & Chem 7: 11/01/23 07:28 11/01/23 07:28 Labs: Microbiology - Last 24 Hours (Table) 10/30/23 13:04 Blood Culture - Preliminary Blood 10/31/23 06:57 Blood Culture - Preliminary Blood 10/29/23 04:05 Blood Culture - Preliminary Blood 10/29/23 03:50 Blood Culture - Preliminary Blood Assessment and Plan (1) Fever Current Visit: Yes Status: Acute Code(s): R50.9 - FEVER, UNSPECIFIED SNOMED Code(s): 235236942 (2) Pneumonia Current Visit: Yes Status: Acute Code(s): J18.9 - PNEUMONIA, UNSPECIFIED ORGANISM SNOMED Code(s): 418445107 (3) Elevated LFTs Current Visit: Yes Status: Acute Code(s): R79.89 - OTHER SPECIFIED ABNORMAL FINDINGS OF BLOOD CHEMISTRY SNOMED Code(s): 833404734 Plan: 1patient with episode of fever without clear etiology in this patient apparently has been dealing with a fever for more than a week in the outpatient setting initially did have some respiratory symptoms concerning for possible pneumonia not being admitted to the hospital for NSTEMI, status postcardiac cath and PCI 2-blood cultures has been negative so far, procalcitonin is mildly elevated 3--patient did have elevated liver enzymes hepatitis panel is negative ultrasound suspicious for prominence of the bile duct recommending ERCP, 4-patient did have a CT of the chest suspicious for right lower lobe pneumonia patient seem to have responded to Rocephin and Zithromax as he did have some clinical improvement sputum culture has been obtained results will be followed Dictation was produced using [employer] dictation software. please excuse any grammatical, word or spelling errors. Time with Patient: Less than 30
[2023-11-02] MEDS: carvediloL 3.125 MG TAB PO SCH (16:51)
[2023-11-02] MEDS: BENZONATATE 100 MG CAP PO SCH (16:51)
[2023-11-02] MEDS: MELATONIN 3 MG TABLET PO SCH (21:16)
[2023-11-03 05:45] LABS: Basophils % (A) 1 %; Eosinophils # (A) 0.3 k/uL (0-0.7); Eosinophils % (A) 4 %; HCT 32.5 % (39.0-53.0); HGB 11.1 gm/dL (13.0-17.5); Lymphocytes # (A) 1.2 k/uL (1.0-4.8); Lymphocytes % (A) 15 %; MCH 30.7 pg (25.0-35.0); MCV 90.1 fL (80.0-100.0); Mean Platelet Volume 8.3; Monocytes # (A) 0.5 k/uL (0-1.0); Monocytes % (A) 6 %; Neutrophils # (A) 5.8 k/uL (1.3-7.7); Neutrophils % (A) 74 %; Platelet Count 313 k/uL (150-450); RDW 12.8 % (11.5-15.5)
[2023-11-03 06:00] LABS: ALT 105 U/L (4-49); AST 90 U/L (17-59); African American GFR (CKD) >90 (>60 ml/min/1.73 sqM); Albumin 2.9 g/dL (3.5-5.0); Alkaline Phosphatase 92 U/L (38-126); Anion Gap 6 mmol/L; Blood Urea Nitrogen 34 mg/dL (9-20); Calcium 8.7 mg/dL (8.4-10.2); Carbon Dioxide 21 mmol/L (22-30); Chloride 108 mmol/L (98-107); Glucose 95 mg/dL (74-99); Magnesium 2.3 mg/dL (1.6-2.3); Non-African American GFR(CKD) >90 (>60 ml/min/1.73 sqM); Potassium 4.7 mmol/L (3.5-5.1); Sodium 135 mmol/L (137-145); Total Bilirubin 0.8 mg/dL (0.2-1.3); Total Protein 5.6 g/dL (6.3-8.2)
--- NOTE | 2023-11-03 07:01 | P.PN ---
Subjective Progress Note Date: 11/03/23 Principal diagnosis: Chest pain. Pulmonary consult dated October 29, 2023. 72-year-old male who was seen in the emergency department, room 4. He apparently has not been feeling well for about a week or so prior to admission. He apparently came with complaints of shortness of breath, chest pain, cough, chest congestion, and generally not feeling well. He was seen in the emergency department. The patient was on 2 L of oxygen. He was on IV heparin as well. According to the nurse practitioner who works with cardiology, the patient is scheduled for cardiac catheterization tomorrow. He has a history of a recent catheterization, done on October 13, which revealed severe [place] CAD as well as occluded SVG to OM1 of his previous bypass grafting. He is on blood thinner for his atrial fibrillation, and has a prior history of a MRSA infection. The patient complains of substernal chest discomfort, which has been going on for at least a week or so. According to a family member, the patient was also having fever. Other medical history includes hyperlipidemia, hypertension, hypothyroidism, melanoma, and chronic back pain, with spinal stenosis. He also has a history of kidney stones, previous bypass grafting, and heart catheterization. Current labs include a white count 11.6, hemoglobin 13.3, hematocrit 40.6, platelet count 2 21,000. PTT is 49.4. Sodium 134, potassium 4.2, chloride 99, CO2 25, anion gap 10, BUN 34, and creatinine 0.97. Glucose is 110. Troponins were 29.7 27.3 and 25.3. N-terminal proBNP was 14,200. Studies for influenza, RSV, coronavirus were all negative. Chest x-ray was consistent with pulmonary edema. Progress note dated October 30, 2023. 72-year-old male that was seen in the emergency department yesterday. The patient is being evaluated for chest discomfort, and shortness of breath. He also apparently had a chest congestion, cough, and fever, and was generally just not feeling well. The patient went for heart catheterization today. Currently he is on 2 L, with saturations are 97%. Current laboratory includes a white count 7.6, hemoglobin 11.9, hematocrit 36.5, and a platelet count of 226,000. PTT is 35.8. Sodium 133, potassium 4.1, chlorides 101, CO2 24, BUN 36, and creatinine 0.94. Calcium is 8.3. Procalcitonin level was 0.19. Troponins were quite elevated at 29.7, 27.3, and 25.3. Blood cultures are currently negative. Dr. Bobby's final impression, is noted in the medical record. The patient did have a PCI from the SVG to PDA with a 3.5 x 20 mm covered stent and 3.5 x 15 mm drug-eluting stent. Progress note dated October 31, 2023. 2-year-old male seen in consultation 2 days ago. The patient had a heart catheterization yesterday. His procalcitonin level was 0.19. He is currently on doxycycline. He is getting oxygen by nasal cannula, at 3 L. He is not receiving any IV fluids. Current laboratory data includes a white count 7.2, hemoglobin 12.8, hematocrit 39.7, and a platelet count of 286,000. Sodium 135, potassium 4, chlorides 104, CO2 24, BUN 31, and creatinine 0.70. Glucose was 101. AST is 126. ALT is 68. C-reactive protein is 26. Blood cultures are currently negative. CT scan shows some abnormalities, which could be consistent with pneumonia. Progress note dated 11/01/2023. 72-year-old male seen in consultation 3 days ago. He seen again today in room 355. Currently, the patient was diagnosed as having bilateral multifocal pneumonia. He continues on antibiotics. Is getting oxygen by nasal cannula 2 L. Saturations 93%. No IV fluids. Current labs white count 7.1, hemoglobin 0.1, hematocrit 34, platelet count 300,000. Sodium 135, potassium 4.1, chlorides 105, CO2 25, BUN 42, and creatinine 0.91. AST 98. ALT is 72. He tested negative for Legionella.Blood cultures are currently negative. Chest CT from yesterday, revealed diffuse bilateral multifocal pneumonia. The patient is starting to feel better. Progress note dated November 02, 2023. 72-year-old male seen in consultation 4 days ago. He is seen again in room 355. The patient was recently diagnosed as having bilateral multifocal pneumonia. He continues on antibiotics. He also continues on oxygen, at 3 L. Saturations are 96%. The rest of his vital signs are stable. No new laboratory data today. Cultures are all negative. No recent x-rays to report. Progress note dated November 03, 2023. 72-year-old male seen in consultation number a number of days ago. He is seen again today in room 355. He is currently on 1 L of oxygen. No IV fluids. Cultures have all been negative. We will repeat a chest x-ray today. His initial chest x-ray and CAT scan did show bilateral multifocal pneumonia. For that reason, the patient continues on antibiotics. Clinically, he is stable. Current labs include a white count of 8, hemoglobin 11.1, hematocrit 33.5, and normal platelet count. Sodium 135, potassium 4.7, chlorides 108, CO2 21, BUN 34, and creatinine 0.67. AST is 90. ALT is 105. Albumin is 2.9. Blood and sputum sampling has been negative. The patient's repeat chest x-ray in my opi nion is a bit worse, and the pattern could be consistent with some mild fluid overload. Objective - Vital Signs Vital signs: Vital Signs Temp 99 F 11/03/23 03:48 Pulse 56 L 11/03/23 03:48 Resp 17 11/03/23 03:48 BP 112/56 11/03/23 03:48 Pulse Ox 98 11/03/23 03:48 FiO2 Intake & Output 11/02/23 11/02/23 11/03/23 06:59 18:59 06:59 Intake Total 706 236 686 Balance 706 236 686 Weight 91.9 kg Intake: IV 40 20 Invasive Line 1 20 Invasive Line 2 20 Invasive Line 3 20 Oral 666 236 666 Other: Voiding Method Urinal Urinal Urinal # Voids 1 1 1 - Exam No acute distress, oriented 3. Currently on nasal O2. Saturations are 98% on 1 L. HEENT examination is grossly unremarkable. Mucous membranes are moist. No oral lesions. Neck supple. Full range of motion. No adenopathy thyromegaly or neck vein distention. Cardiovascular examination reveals regular rhythm rate. S1-S2 normal. No S3 or S4. No discernible murmur noted. Heart rate 56 bpm. Lungs reveal scattered crackles. No rhonchi or wheezes. Breath sounds equal. Saturations are 98%. Abdomen soft bowel sounds are heard. No masses or tenderness. Extremities are intact. No cyanosis clubbing or edema. Skin is without rash or lesion. Neurologic examination is brief but nonfocal. - Labs CBC & Chem 7: 11/03/23 05:00 11/03/23 05:00 Labs: Abnormal Lab Results - Last 24 Hours (Table) 11/03/23 11/03/23 Range/Units 05:00 05:00 RBC 3.60 L (4.30-5.90) m/uL Hgb 11.1 L (13.0-17.5) gm/dL Hct 32.5 L (39.0-53.0) % Sodium 135 L (137-145) mmol/L Chloride 108 H (98-107) mmol/L Carbon Dioxide 21 L (22-30) mmol/L BUN 34 H (9-20) mg/dL AST 90 H (17-59) U/L ALT 105 H (4-49) U/L Total Protein 5.6 L (6.3-8.2) g/dL Albumin 2.9 L (3.5-5.0) g/dL Microbiology - Last 24 Hours (Table) 10/30/23 13:04 Blood Culture - Preliminary Blood 11/02/23 09:05 Gram Stain - Preliminary Sputum 10/31/23 06:57 Blood Culture - Preliminary Blood Assessment and Plan Assessment: Non-ST segment elevation myocardial infarction, S/P PCI and stent placement. History of CAD with previous four-vessel bypass grafting. Bilateral pneumonia. Paroxysmal atrial fibrillation. Aortic valve stenosis. History of hypertension. Hyperlipidemia. Hypothyroidism. Peripheral artery disease. History of melanoma. Prior history of MRSA infection. Plan: Plan dated October 29, 2023. The patient is seen in the emergency department, room 4. The patient came in with complaints of fever, chest pain, and shortness of breath. His troponins were quite elevated. The patient likely has a non-ST segment elevation myocardial infarction. The patient had a recent cardiac catheterization, in early October. We will continue to follow along. Additional recommendations and suggestions are forthcoming. A procalcitonin level was ordered. The chest x- ray is consistent with CHF. The patient's N-terminal proBNP was quite elevated. The patient has no prior history of any lung disease. Plan dated October 30, 2023. The patient is seen today in room 355. The patient went to the catheterization laboratory, and did have a PCI, from the SVG, to the PDA. Labs, x-rays, and medications are reviewed. The patient's respiratory status is stable. The patient's procalcitonin level was a bit elevated at 0.19. No obvious source of infection. Studies for influenza, RSV, coronavirus, were negative. We will continue to follow make recommendations along the way. Patient's chest x-ray was consistent with CHF. The patient was initially diagnosed with a non-ST segment elevation myocardial infarction. Plan dated October 31, 2023. The patient was started on azithromycin and ceftriaxone per infectious diseases. CT scan of the chest does show bilateral upper lobe and lower lobe infiltrates, consistent with pneumonia. That would explain his fever and his elevated procalcitonin level. The patient had cardiac catheterization done yesterday, and had a stent placed in his SVG to PDA. Clinically, he looks reasonably well. He is on 3 L. No IV fluids. Labs, x-rays, medications are reviewed. We will continue to follow the patient, and make recommendations along the way. Plan dated 11/01/2023. The patient appears to be doing better. His CAT scan showed evidence of bilateral multifocal pneumonia. He remains on antibiotics. He also had a stent placed a couple days ago, from his SVG, to PDA. He's currently on 2 L of oxygen. Saturations are adequate. He is getting breathing treatments. He is encouraged to cough and clear secretions. In addition he can supply sputum sample from about the [facility]. Labs, x-rays, medications are reviewed. Prognosis is certainly guarded. Plan dated November 02, 2023. The patient is doing very well. The patient is currently on appropriate antibiotics. The patient does have bilateral pneumonia, which explains his elevated procalcitonin level and his fever prior to admission. Labs, x-rays, and medications are reviewed. The patient's 3 L saturation is 96%. Prognosis is guarded. Labs, x-rays, and all medications are reviewed. We will continue to follow. Plan dated November 03, 2023. The patient's chest x-ray today, looks a bit worse compared to the prior x-ray, and there may be a pattern consistent with CHF. The patient is currently only on 1 L of oxygen, and his saturations are excellent at 98%. The patient does not manifest any signs or symptoms of respiratory distress. The patient does continue on Rocephin. I am going to check a N-terminal proBNP. Additional recommendations and suggestions are forthcoming. Prognosis is guarded. Cultures are all negative. Time with Patient: Less than 30
--- NOTE | 2023-11-03 07:29 | XR ---
EXAMINATION TYPE: XR chest 2V DATE OF EXAM: 11/03/2023 6:46 AM CLINICAL INDICATION:Male, 72 years old with history of Pneumonia; [facility] COMPARISON: CT 10/31/2023 TECHNIQUE: XR chest 2V Frontal view of the chest. FINDINGS: Lungs/Pleura: Bilateral perihilar airspace opacities. There is no evidence of pleural effusion, focal consolidation, or pneumothorax. Pulmonary vascularity: Unremarkable. Heart/mediastinum: Cardiomediastinal silhouette is unremarkable. Musculoskeletal: No acute osseous pathology. IMPRESSION: Bilateral perihilar airspace opacities correlate for pneumonia.
[2023-11-03] MEDS: lisinopriL 10 MG TAB PO SCH (08:51)
--- NOTE | 2023-11-03 09:32 | P.PN ---
Subjective Progress Note Date: 11/03/23 HISTORY OF PRESENT ILLNESS This is a 72-year-old male patient of Dr. Florencio Elizabeth with past medical history of coronary artery bypass graft 4 vessel done at [facility] in 2008 with MAGAÑA to LAD and diagonal, saphenous vein graft to PDA, saphenous vein graft to the obtuse marginal branch, paroxysmal atrial fibrillation on Xarelto, aortic valve stenosis aortic regurgitation, hypertension, dyslipidemia, moderate bilateral carotid stenosis, peripheral artery disease status post right iliac stenting, hypothyroidism, benign prostatic hypertrophy, melanoma resected from his back. Patient presented to the emergency department at [facility] after a week history of retrosternal chest pain associated with increased shortness of breath, he was seen recently in the office for what appears to be an upper respiratory tract infection associated with increased shortness of br eath, had laboratory evaluation at that time that showed elevation of the C- reactive protein with normal ESR, blood cultures were negative because of the patient prior history of MRSA induced endocarditis, patient was not feeling well, he decided to go to the ER at 3:00 in the morning because of increased shortness of breath, he was seen in the emergency department he was found to have a pulmonary vascular congestion and he was found to have an elevated troponin at 29, patient did have a left heart catheterization that was done by Dr. Bobby on October 13 and that showed severe saxman CAD disease with 100% occlusion of the left main, 100% occlusion of the RCA, patent MAGAÑA to LAD and diagonal branch, patent SVG to the PDA, and occluded SVG to the obtuse marginal branch, at that time it was recommended for the patient to continue with medical management, he also was found to have aortic regurgitation 3-4+, patient was admitted to the hospital he was started on a heparin drip, and he was seen in consultation by cardiology as well as by pulmonary medicine it was recommended for the patient to go for left heart catheterization tomorrow morning. 10/29: Today, patient underwent LHC with Dr. Bobby and had 2 stent placement in the SVG to the PDA after what appears a perforation in the graft area with 80% stenosis, he had 2 stents placed in that area, and the patient is feeling a lot better after the procedure, he had an echocardiogram that showed evidence of ejection fraction of 35 to 40%, severe bilateral atrial enlargement, severe aortic regurgitation, mild aortic stenosis, as well as increased right sided ventricular pressure, patient did receive Lasix 40 mg IV push in the early hours in the morning because of significant shortness of breath, he is currently down to 2 L nasal cannula, patient continues to be somewhat hypotensive, he is not taking any LANDEN inhibitor at this time or any beta-jennifer due to his hypotension will reevaluate in the next 24 hours, will monitor the patient very closely, patient is being followed by pulmonary medicine as well as cardiology 10/30:. Patient is lying down in bed appears to be more short of breath today, he continues to have a low-grade temperature, he had a CT scan of the chest that showed bilateral upper lobe and right lower lobe infiltrate suggestive of pneumonia, he was started on Rocephin and Zithromax after he was seen by infectious disease, his procalcitonin level is slightly elevated, patient also had an ultrasound of the abdomen that showed prominence of the common bile duct, at 0.3 cm, we will monitor the patient very closely now patient may need to go for an ERCP as an outpatient, but will wait for now until the patient is feeling better, patient has been started back on his home medication, he continues to be somewhat weak, continue to be somewhat short of breath, we will continue to follow-up with the patient very closely. Blood cultures so far negative. 10/31: Patient is walking around appears to be more fatigued, more dyspneic on exertion, he has no orthopnea, he has no PND, he has no edema, he is worried about his current situation, I explained to the patient the current situation, and he is having ischemic cardiomyopathy, this is related to her recent non-ST elevation myocardial infarction as well as severe aortic regurgitation, we will continue to add medications for goal-directed medical therapy add SGLT2 at this point in time we will help the patient quite a bit, amlodipine was discontinued thankfully and patient was started on Farxiga 10 mg once every day per cardiology, also carvedilol 3.25 mg orally twice every day. 11/01: Patient is feeling a bit better today, his blood pressure is better less hypotensive, he seems to be tolerating treatment very well, his medication were adjusted to coincide with the goal-directed medical therapy GDMT. Will continue current treatment plan, monitor the patient in the hospital for another 1 or 2 days, hopefully he will be discharged home on Saturday. 11/02: Patient did not sleep very well yesterday, despite using melatonin 3 mg at bedtime, he will be switched to zolpidem 5 mg at bedtime and we will monitor the patient very closely, he is been getting his IV antibiotic, he is feeling better today, he is less short of breath, he is down to 1-1/2 L nasal cannula, will check his oxygenation tomorrow on room air with ambulation, hopefully he will be able to get out of the hospital tomorrow morning. REVIEW OF SYSTEMS Constitutional: No fever, no chills, no night sweats. No weight change. No weakness, fatigue or lethargy. No daytime sleepiness. EENT: No headache. No blurred vision or double vision, no loss of vision. No loss of Hearing, no ringing in the ears, no dizziness. No nasal drainage or congestion. No epistaxis. No sore throat. Lungs: positive for shortness of breath, occasional cough, no sputum production. No wheezing. Cardiovascular: Reports no chest pain, no lower extremity edema. No palpitations. No paroxysmal nocturnal dyspnea. No orthopnea. No lighthea dedness or dizziness. No syncopal episodes. Abdominal: No abdominal pain. No nausea, vomiting. No diarrhea. No constipation. No bloody or tarry stools. No loss of appetite. Genitourinary: No dysuria, increased frequency, urgency. No urinary retention. Musculoskeletal: No myalgias. No muscle weakness, no gait dysfunction, no frequent falls. No back pain. No neck pain. Integumentary: No wounds, no lesions. No rash or pruritus. No unusual bruising. No change in hair or nails. Neurologic: No aphasia. No facial droop. No change in mentation. No head injury. No headache. No paralysis. No paresthesia. Psychiatric: No depression. No anxiety. No mood swings. Endocrine: No abnormal blood sugars. No weight change. No excessive sweating or thirst. No cold intolerance. PHYSICAL EXAMINATION Gen: This is a 72-year-old male, laying down in bed in no apparent distress. HEENT: Head is atraumatic, normocephalic. Pupils equal, round. Sclerae is anicteric. NECK: Supple. No JVD. No lymphadenopathy. No thyromegaly. LUNGS: Clear to auscultation. No wheezes or rhonchi. No intercostal retractions. HEART: First heart sounds depressed, second heart sounds normal, other systolic ejection murmur 2/6 located in the left sternal border. ABDOMEN: Soft. Bowel sounds are present. No masses. No tenderness. EXTREMITIES: There is no pedal edema, no calf tenderness, dorsalis pedis +2 bilaterally. NEUROLOGICAL: Patient is awake, alert and oriented x3. Cranial nerves 2 through 12 are grossly intact, muscle power 5 out of 5 in upper and lower extremities bilaterally. ASSESSMENT AND PLAN 1. Non-ST elevation myocardial infarction. Patient was started on Plavix 75 mg orally once every day, he is to continue on aspirin 81 mg once every day, Xarelto 15 mg orally once every day, continue atorvastatin 40 mg once every day, will start the patient on PCSK9 inhibitor as outpatient Repatha 140 mg subcutaneously every 2 weeks, monitor the patient very closely, keep LDL cholesterol less than 50 at all the time, 2. Acute systolic heart failure due to ischemic cardiomyopathy. Patient was placed on lisinopril 10 mg orally once every day, labetalol 3.125 mg orally twice every day, spironolactone 25 mg once every day, Farxiga 10 mg once every day, monitor input and output and daily weight. 3. Bilateral upper lobes and right lower lobe pneumonia likely community- acquired pneumonia. Continue patient on Rocephin 2 g every back every 24 hours, pulmonary as well as infectious ease are following. 4. History of coronary artery disease with 4 vessel CABG with recent left heart catheterization October 14, 2023 that showed patent MAGAÑA to LAD diagonal branch, patent SVG to PDA, and total occlusion of SVG to the obtuse marginal branch. Continue treatment as in previous paragraph. Continue patient on isosorbide mononitrate 30 mg once every day, carvedilol 3.125 mg orally twice every day, lisinopril 10 mg once every day, aspirin 81 mg once every day, Plavix 75 mg once every day. 5. Paroxysmal atrial fibrillation currently in a sinus rhythm. continue patient on Xarelto 15 mg orally once every day. 6. Hypertension hypertensive cardiovascular disease. Continue patient on lisinopril 10 mg once every day, spironolactone 25 mg once every day, continue patient on carvedilol 3.25 mg twice every day. 7. Hypothyroidism. Continue levothyroxine 175 mcg orally once every day, monitor the patient thyroid function test very closely. 8. Benign prostatic hypertrophy. Continue Flomax or 0.4 mg daily and monitor for urinary retention. 9. Hyperlipidemia. Continue atorvastatin 40 mg orally once every day, may need to be started on Repatha 140 mg subcutaneously every 2 weeks as an outpatient. 10. Peripheral artery disease status post iliac stent. Stable at this time. Continue statin as well as aspirin for secondary prevention. 11. Elevated liver function test with prominence of the common bile duct, patient may need to be seen by GI for possible ERCP as an outpatient. 12. DVT prophylaxis. Continue Xarelto 15 mg orally once every day. 13. GI prophylaxis. on Protonix 40 mg orally once every day. 14. Overall prognosis is guarded. 15. Hopefully home tomorrow morning. Objective - Vital Signs Vital signs: Vital Signs Temp 98.5 F 11/03/23 08:49 Pulse 56 L 11/03/23 09:18 Resp 16 11/03/23 08:49 BP 111/61 11/03/23 08:49 Pulse Ox 95 11/03/23 09:09 FiO2 Intake & Output 11/02/23 11/03/23 11/03/23 18:59 06:59 18:59 Intake Total 236 686 118 Balance 236 686 118 Weight 91.9 kg Intake: IV 20 Invasive Line 3 20 Oral [id number] Other: Voiding Method Urinal Urinal # Voids 1 1 - Labs CBC & Chem 7: 11/03/23 05:00 11/03/23 05:00 Labs: Abnormal Lab Results - Last 24 Hours (Table) 11/03/23 11/03/23 Range/Units 05:00 05:00 RBC 3.60 L (4.30-5.90) m/uL Hgb 11.1 L (13.0-17.5) gm/dL Hct 32.5 L (39.0-53.0) % Sodium 135 L (137-145) mmol/L Chloride 108 H (98-107) mmol/L Carbon Dioxide 21 L (22-30) mmol/L BUN 34 H (9-20) mg/dL AST 90 H (17-59) U/L ALT 105 H (4-49) U/L Total Protein 5.6 L (6.3-8.2) g/dL Albumin 2.9 L (3.5-5.0) g/dL Microbiology - Last 24 Hours (Table) 10/30/23 13:04 Blood Culture - Preliminary Blood 11/02/23 09:05 Gram Stain - Preliminary Sputum 10/31/23 06:57 Blood Culture - Preliminary Blood
--- NOTE | 2023-11-03 11:00 | P.PN ---
Subjective Progress Note Date: 11/03/23 the patient is a 72-year-old male who underwent stenting of a saphenous vein graft on 10/30/[address] Bobby. Postoperatively he has done well. yesterday the patient reported orthopnea. Medications were adjusted and he states he did not have those symptoms overnight. He does report having some in somnia. patient interviewed and examined sitting up in the recliner chair. No chest pain. No difficulty breathing. Patient has been ambulating to the restroom with assistance. GENERAL: Well-appearing, well-nourished and in no acute distress. NECK: Supple without JVD or thyromegaly. LUNGS: Breath sounds clear to auscultation bilaterally. Respiration equal and unlabored. No wheezes, rales or rhonchi. HEART: Regular rate and rhythm without murmurs, rubs or gallops. S1 and S2 heard. EXTREMITIES: Normal range of motion, no edema. No clubbing or cyanosis. Peripheral pulses intact and strong. TELEMETRY: sinus bradycardia rhythm overnight IMPRESSION: Non-ST elevated myocardial infarction status post PCI of the SVG to PDA 10/29 Ischemic cardiomyopathy with EF of 35 to 40% History of coronary artery disease status post CABG four-vessel Paroxysmal atrial fibrillation on Xarelto Aortic valve stenosis Hypertension Dyslipidemia Peripheral artery disease status post right iliac stenting PLAN: no change in medication regimen Patient may be discharged from the cardiac standpoint Outpatient follow-up with primary environmental services director Dr. Bobby I am dictating on behalf of Dr Arron Collier's history/physical and assessment/plan. Objective - Vital Signs Vital signs: Vital Signs Temp 98.5 F 11/03/23 08:49 Pulse 56 L 11/03/23 09:18 Resp 16 11/03/23 08:49 BP 111/61 11/03/23 08:49 Pulse Ox 95 11/03/23 09:09 FiO2 Intake & Output 11/02/23 11/03/23 11/03/23 18:59 06:59 18:59 Intake Total 236 686 118 Balance 236 686 118 Weight 91.9 kg Intake: IV 20 Invasive Line 3 20 Oral 236 [id number] Other: Voiding Method Urinal Urinal # Voids 1 1 - Labs CBC & Chem 7: 11/03/23 05:00 11/03/23 05:00 Labs: Abnormal Lab Results - Last 24 Hours (Table) 11/03/23 11/03/23 Range/Units 05:00 05:00 RBC 3.60 L (4.30-5.90) m/uL Hgb 11.1 L (13.0-17.5) gm/dL Hct 32.5 L (39.0-53.0) % Sodium 135 L (137-145) mmol/L Chloride 108 H (98-107) mmol/L Carbon Dioxide 21 L (22-30) mmol/L BUN 34 H (9-20) mg/dL AST 90 H (17-59) U/L ALT 105 H (4-49) U/L Total Protein 5.6 L (6.3-8.2) g/dL Albumin 2.9 L (3.5-5.0) g/dL Microbiology - Last 24 Hours (Table) 10/30/23 13:04 Blood Culture - Preliminary Blood 11/02/23 09:05 Gram Stain - Preliminary Sputum 10/31/23 06:57 Blood Culture - Preliminary Blood
--- NOTE | 2023-11-03 20:03 | P.PN ---
Subjective Progress Note Date: 11/03/23 Principal diagnosis: Reason for follow-up is fever and pneumonia Patient is a 72-year-old male with a past medical history significant for atrial fibrillation hypertension hyperlipidemia prostate disorder did have a history of MRSA bacteremia November 2022 presented to hospital with increasing shortness of breath chest pain has been diagnosed with an ID in this patient who status post PCI to SVG to PDA did have a fever found at this consultation. On today's evaluation that is 11/03/2023,the patient denies any fever or any chills, patient is breathing comfortably on 2 L nasal oxygen, the patient denies chest pain has been complaining of more shortness of breath and cough especially at night but not bringing up any sputum no nausea no vomiting no abdominal pain or diarrhea. Patient white count is 8.0 creatinine 0.67 blood culture negative sputum is pending Objective - Vital Signs Vital signs: Vital Signs Temp 98.5 F 11/03/23 08:49 Pulse 56 L 11/03/23 09:18 Resp 16 11/03/23 08:49 BP 111/61 11/03/23 08:49 Pulse Ox 95 11/03/23 09:09 FiO2 Intake & Output 11/02/23 11/03/23 11/03/23 18:59 06:59 18:59 Intake Total 236 686 118 Balance 236 686 118 Weight 91.9 kg Intake: IV 20 Invasive Line 3 20 Oral 236 666 118 Other: Voiding Method Urinal Urinal # Voids 1 1 - Exam GENERAL DESCRIPTION: An elderly male lying in bed in no distress RESPIRATORY SYSTEM: Unlabored breathing , decreased breath sounds at bases HEART: S1 S2 regular rate and rhythm , ABDOMEN: Soft , no tenderness EXTREMITIES: No edema feet - Labs CBC & Chem 7: 11/03/23 05:00 11/03/23 05:00 Labs: Abnormal Lab Results - Last 24 Hours (Table) 11/03/23 11/03/23 Range/Units 05:00 05:00 RBC 3.60 L (4.30-5.90) m/uL Hgb 11.1 L (13.0-17.5) gm/dL Hct 32.5 L (39.0-53.0) % Sodium 135 L (137-145) mmol/L Chloride 108 H (98-107) mmol/L Carbon Dioxide 21 L (22-30) mmol/L BUN 34 H (9-20) mg/dL AST 90 H (17-59) U/L ALT 105 H (4-49) U/L Total Protein 5.6 L (6.3-8.2) g/dL Albumin 2.9 L (3.5-5.0) g/dL Microbiology - Last 24 Hours (Table) 10/30/23 13:04 Blood Culture - Preliminary Blood 11/02/23 09:05 Gram Stain - Preliminary Sputum 10/31/23 06:57 Blood Culture - Preliminary Blood Assessment and Plan (1) Fever Current Visit: Yes Status: Acute Code(s): R50.9 - FEVER, UNSPECIFIED SNOMED Code(s): 996333653 (2) Pneumonia Current Visit: Yes Status: Acute Code(s): J18.9 - PNEUMONIA, UNSPECIFIED ORGANISM SNOMED Code(s): 103033755 (3) Elevated LFTs Current Visit: Yes Status: Acute Code(s): R79.89 - OTHER SPECIFIED ABNORMAL FINDINGS OF BLOOD CHEMISTRY SNOMED Code(s): 942756332 Plan: 1patient with episode of fever without clear etiology in this patient apparently has been dealing with a fever for more than a week in the outpatient setting initially did have some respiratory symptoms concerning for possible pneumonia not being admitted to the hospital for NSTEMI, status postcardiac cath and PCI 2-blood cultures has been negative so far, procalcitonin is mildly elevated 3--patient did have elevated liver enzymes hepatitis panel is negative ultrasound suspicious for prominence of the bile duct recommending ERCP, 4-patient did have a CT of the chest suspicious for right lower lobe pneumonia 5-patient seem to have responded to Rocephin and Zithromax, to continue while waiting for the sputum culture to finalize Dictation was produced using [employer] dictation software. please excuse any grammatical, word or spelling errors. Time with Patient: Less than 30
[2023-11-03] MEDS: ZOLPIDEM 5 MG TAB PO SCH (20:27)
[2023-11-04 07:15] LABS: Basophils % (A) 1 %; Eosinophils # (A) 0.3 k/uL (0-0.7); Eosinophils % (A) 5 %; HCT 33.4 % (39.0-53.0); HGB 11.1 gm/dL (13.0-17.5); Lymphocytes # (A) 1.2 k/uL (1.0-4.8); Lymphocytes % (A) 19 %; MCH 29.8 pg (25.0-35.0); MCHC 33.1 g/dL (31.0-37.0); Monocytes # (A) 0.4 k/uL (0-1.0); Monocytes % (A) 6 %; Neutrophils # (A) 4.5 k/uL (1.3-7.7); Neutrophils % (A) 69 %; Platelet Count 352 k/uL (150-450); RBC 3.71 m/uL (4.30-5.90); RDW 12.8 % (11.5-15.5); WBC 6.5 k/uL (3.8-10.6)
[2023-11-04 07:34] LABS: ALT 104 U/L (4-49); AST 75 U/L (17-59); African American GFR (CKD) >90 (>60 ml/min/1.73 sqM); Albumin 2.9 g/dL (3.5-5.0); Alkaline Phosphatase 93 U/L (38-126); Anion Gap 6 mmol/L; Blood Urea Nitrogen 26 mg/dL (9-20); Calcium 8.5 mg/dL (8.4-10.2); Carbon Dioxide 21 mmol/L (22-30); Chloride 107 mmol/L (98-107); Glucose 87 mg/dL (74-99); Non-African American GFR(CKD) >90 (>60 ml/min/1.73 sqM); Potassium 4.7 mmol/L (3.5-5.1); Sodium 134 mmol/L (137-145); Total Protein 5.6 g/dL (6.3-8.2)
--- NOTE | 2023-11-04 11:28 | P.PN ---
Subjective Progress Note Date: 11/04/23 Principal diagnosis: Chest pain. Pulmonary consult dated October 29, 2023. 72-year-old male who was seen in the emergency department, room 4. He apparently has not been feeling well for about a week or so prior to admission. He apparently came with complaints of shortness of breath, chest pain, cough, chest congestion, and generally not feeling well. He was seen in the emergency department. The patient was on 2 L of oxygen. He was on IV heparin as well. According to the nurse practitioner who works with cardiology, the patient is scheduled for cardiac catheterization tomorrow. He has a history of a recent catheterization, done on October 13, which revealed severe [place] CAD as well as occluded SVG to OM1 of his previous bypass grafting. He is on blood thinner for his atrial fibrillation, and has a prior history of a MRSA infection. The patient complains of substernal chest discomfort, which has been going on for at least a week or so. According to a family member, the patient was also having fever. Other medical history includes hyperlipidemia, hypertension, hypothyroidism, melanoma, and chronic back pain, with spinal stenosis. He also has a history of kidney stones, previous bypass grafting, and heart catheterization. Current labs include a white count 11.6, hemoglobin 13.3, hematocrit 40.6, platelet count 2 21,000. PTT is 49.4. Sodium 134, potassium 4.2, chloride 99, CO2 25, anion gap 10, BUN 34, and creatinine 0.97. Glucose is 110. Troponins were 29.7 27.3 and 25.3. N-terminal proBNP was 14,200. Studies for influenza, RSV, coronavirus were all negative. Chest x-ray was consistent with pulmonary edema. Progress note dated October 30, 2023. 72-year-old male that was seen in the emergency department yesterday. The patient is being evaluated for chest discomfort, and shortness of breath. He also apparently had a chest congestion, cough, and fever, and was generally just not feeling well. The patient went for heart catheterization today. Currently he is on 2 L, with saturations are 97%. Current laboratory includes a white count 7.6, hemoglobin 11.9, hematocrit 36.5, and a platelet count of 226,000. PTT is 35.8. Sodium 133, potassium 4.1, chlorides 101, CO2 24, BUN 36, and creatinine 0.94. Calcium is 8.3. Procalcitonin level was 0.19. Troponins were quite elevated at 29.7, 27.3, and 25.3. Blood cultures are currently negative. Dr. Bobby's final impression, is noted in the medical record. The patient did have a PCI from the SVG to PDA with a 3.5 x 20 mm covered stent and 3.5 x 15 mm drug-eluting stent. Progress note dated October 31, 2023. 2-year-old male seen in consultation 2 days ago. The patient had a heart catheterization yesterday. His procalcitonin level was 0.19. He is currently on doxycycline. He is getting oxygen by nasal cannula, at 3 L. He is not receiving any IV fluids. Current laboratory data includes a white count 7.2, hemoglobin 12.8, hematocrit 39.7, and a platelet count of 286,000. Sodium 135, potassium 4, chlorides 104, CO2 24, BUN 31, and creatinine 0.70. Glucose was 101. AST is 126. ALT is 68. C-reactive protein is 26. Blood cultures are currently negative. CT scan shows some abnormalities, which could be consistent with pneumonia. Progress note dated 11/01/2023. 72-year-old male seen in consultation 3 days ago. He seen again today in room 355. Currently, the patient was diagnosed as having bilateral multifocal pneumonia. He continues on antibiotics. Is getting oxygen by nasal cannula 2 L. Saturations 93%. No IV fluids. Current labs white count 7.1, hemoglobin 0.1, hematocrit 34, platelet count 300,000. Sodium 135, potassium 4.1, chlorides 105, CO2 25, BUN 42, and creatinine 0.91. AST 98. ALT is 72. He tested negative for Legionella.Blood cultures are currently negative. Chest CT from yesterday, revealed diffuse bilateral multifocal pneumonia. The patient is starting to feel better. Progress note dated November 02, 2023. 72-year-old male seen in consultation 4 days ago. He is seen again in room 355. The patient was recently diagnosed as having bilateral multifocal pneumonia. He continues on antibiotics. He also continues on oxygen, at 3 L. Saturations are 96%. The rest of his vital signs are stable. No new laboratory data today. Cultures are all negative. No recent x-rays to report. Progress note dated November 03, 2023. 72-year-old male seen in consultation number a number of days ago. He is seen again today in room 355. He is currently on 1 L of oxygen. No IV fluids. Cultures have all been negative. We will repeat a chest x-ray today. His initial chest x-ray and CAT scan did show bilateral multifocal pneumonia. For that reason, the patient continues on antibiotics. Clinically, he is stable. Current labs include a white count of 8, hemoglobin 11.1, hematocrit 33.5, and normal platelet count. Sodium 135, potassium 4.7, chlorides 108, CO2 21, BUN 34, and creatinine 0.67. AST is 90. ALT is 105. Albumin is 2.9. Blood and sputum sampling has been negative. The patient's repeat chest x-ray in my opi nion is a bit worse, and the pattern could be consistent with some mild fluid overload. Progress note dated November 04, 2023. 72-year-old male seen in consultation a few days ago, with chest pain and s hortness of breath. The patient is resting comfortably in room 355. He is on room air. Labs, x-rays, and medications are all reviewed. The patient is hoping to be discharged home today. The patient did have a stent placed in his SVG to PDA. Current labs include a white count of 6.5, hemoglobin 11.1, hematocrit 33.4, platelet count 352,000. Sodium 134, potassium 4.7, chlorides 107, CO2 21, BUN 26, creatinine 0.62. AST of 75. ALT is 104. All culture data is thus far negative. Chest x-ray from yesterday shows bilateral perihilar infiltrates, likely consistent with both pneumonia and CHF. The patient's BNP was elevated. The BNP, was 7440. Objective - Vital Signs Vital signs: Vital Signs Temp 97.9 F 11/04/23 09:20 Pulse 51 L 11/04/23 09:20 Resp 16 11/04/23 09:20 BP 121/58 11/04/23 09:20 Pulse Ox 96 11/04/23 09:20 FiO2 Intake & Output 11/03/23 11/04/23 11/04/23 18:59 06:59 18:59 Intake Total 2244 20 370 Balance 2244 20 370 Weight 91.7 kg 91.6 kg Intake: IV 20 10 Invasive Line 3 20 10 Oral 2244 360 Other: Voiding Method Toilet Toilet Urinal Urinal # Voids 1 1 1 - Exam No acute distress, oriented 3. Currently on room air. Saturations are 95% on room air. HEENT examination is grossly unremarkable. Mucous membranes are moist. No oral lesions. Neck supple. Full range of motion. No adenopathy thyromegaly or neck vein distention. Cardiovascular examination reveals regular rhythm rate. S1-S2 normal. No S3 or S4. No discernible murmur noted. Heart rate 51 bpm. Lungs reveal scattered crackles. No rhonchi or wheezes. Breath sounds equal. Saturations are 95 %. Abdomen soft bowel sounds are heard. No masses or tenderness. Extremities are intact. No cyanosis clubbing or edema. Skin is without rash or lesion. Neurologic examination is brief but nonfocal. - Labs CBC & Chem 7: 11/04/23 06:42 11/04/23 06:42 Labs: Abnormal Lab Results - Last 24 Hours (Table) 11/04/23 11/04/23 Range/Units 06:42 06:42 RBC 3.71 L (4.30-5.90) m/uL Hgb 11.1 L (13.0-17.5) gm/dL Hct 33.4 L (39.0-53.0) % Sodium 134 L (137-145) mmol/L Carbon Dioxide 21 L (22-30) mmol/L BUN 26 H (9-20) mg/dL Creatinine 0.62 L (0.66-1.25) mg/dL AST 75 H (17-59) U/L ALT 104 H (4-49) U/L Total Protein 5.6 L (6.3-8.2) g/dL Albumin 2.9 L (3.5-5.0) g/dL Microbiology - Last 24 Hours (Table) 11/02/23 09:05 Gram Stain - Final Sputum Sputum Culture - Final 10/31/23 06:57 Blood Culture - Preliminary Blood 10/29/23 04:05 Blood Culture - Final Blood 10/29/23 03:50 Blood Culture - Final Blood Assessment and Plan Assessment: Non-ST segment elevation myocardial infarction, S/P PCI and stent placement. History of CAD with previous four-vessel bypass grafting. Bilateral pneumonia. Paroxysmal atrial fibrillation. Aortic valve stenosis. History of hypertension. Hyperlipidemia. Hypothyroidism. Peripheral artery disease. History of melanoma. Prior history of MRSA infection. Plan: Plan dated October 29, 2023. The patient is seen in the emergency department, room 4. The patient came in with complaints of fever, chest pain, and shortness of breath. His troponins were quite elevated. The patient likely has a non-ST segment elevation myocardial infarction. The patient had a recent cardiac catheterization, in early October. We will continue to follow along. Additional recommendations and suggestions are forthcoming. A procalcitonin level was ordered. The chest x- ray is consistent with CHF. The patient's N-terminal proBNP was quite elevated. The patient has no prior history of any lung disease. Plan dated October 30, 2023. The patient is seen today in room 355. The patient went to the catheterization laboratory, and did have a PCI, from the SVG, to the PDA. Labs, x-rays, and medications are reviewed. The patient's respiratory status is stable. The patient's procalcitonin level was a bit elevated at 0.19. No obvious source of infection. Studies for influenza, RSV, coronavirus, were negative. We will continue to follow make recommendations along the way. Patient's chest x-ray was consistent with CHF. The patient was initially diagnosed with a non-ST segment elevation myocardial infarction. Plan dated October 31, 2023. The patient was started on azithromycin and ceftriaxone per infectious diseases. CT scan of the chest does show bilateral upper lobe and lower lobe infiltrates, consistent with pneumonia. That would explain his fever and his elevated procalcitonin level. The patient had cardiac catheterization done yesterday, and had a stent placed in his SVG to PDA. Clinically, he looks reasonably well. He is on 3 L. No IV fluids. Labs, x-rays, medications are reviewed. We will continue to follow the patient, and make recommendations along the way. Plan dated 11/01/2023. The patient appears to be doing better. His CAT scan showed evidence of bilateral multifocal pneumonia. He remains on antibiotics. He also had a stent placed a couple days ago, from his SVG, to PDA. He's currently on 2 L of oxygen. Saturations are adequate. He is getting breathing treatments. He is encouraged to cough and clear secretions. In addition he can supply sputum sample from about the [facility]. Labs, x-rays, medications are reviewed. Prognosis is certainly guarded. Plan dated November 02, 2023. The patient is doing very well. The patient is currently on appropriate ant ibiotics. The patient does have bilateral pneumonia, which explains his elevated procalcitonin level and his fever prior to admission. Labs, x-rays, and medications are reviewed. The patient's 3 L saturation is 96%. Prognosis is guarded. Labs, x-rays, and all medications are reviewed. We will continue to follow. Plan dated November 03, 2023. The patient's chest x-ray today, looks a bit worse compared to the prior x-ray, and there may be a pattern consistent with CHF. The patient is currently only on 1 L of oxygen, and his saturations are excellent at 98%. The patient does not manifest any signs or symptoms of respiratory distress. The patient does continue on Rocephin. I am going to check a N-terminal proBNP. Additional recommendations and suggestions are forthcoming. Prognosis is guarded. Cultures are all negative. Plan dated November 04, 2023. The patient is currently on room air. Saturations are between 95 and 96%. Labs, x-rays, and medications are reviewed. From our perspective, the patient could be considered for discharge home. No additional recommendations were made other than a few more days of antibiotics on discharge. I be happy to see him in follow-up in the office, for a follow-up chest x-ray. Prognosis is thought to be generally good. Cultures are all negative. Time with Patient: Less than 30
[2023-11-04 12:46] VITALS: BP 113/53; PULSE 67; RESP 20; TEMP 98.3
--- NOTE | 2023-11-04 13:07 | P.DS ---
Providers Date of admission: 10/29/23 06:02 Expected date of discharge: 11/04/23 Attending physician: Buddy Salas Consults: 10/29/23 05:38 Consult Physician Routine Consulting Provider: Nguyễn Diamond Consult Reason/Comments: [email or web address] new LBBB. spoke with Bhavin Do you want consulting provider notified?: Yes 10/29/23 06:01 Consult Physician Routine Consulting Provider: Sekou Samayoa Consult Reason/Comments: pleural effusions Do you want consulting provider notified?: Yes 10/30/23 14:09 Consult Physician Routine Consulting Provider: Nguyễn Diamond Consult Reason/Comments: Post Interventional Patient Do you want consulting provider notified?: Already Contacted 10/30/23 14:19 Consult Physician Routine Consulting Provider: Sixto Dominguez Consult Reason/Comments: fuo Do you want consulting provider notified?: Yes Primary care physician: Buddy Salas [facility] Course: HISTORY OF PRESENT ILLNESS This is a 72-year-old male patient of Dr. Florencio Elizabeth with past medical history of coronary artery bypass graft [address] [facility] in 2008 with MAGAÑA to LAD and diagonal, saphenous vein graft to PDA, saphenous vein graft to the obtuse marginal branch, paroxysmal atrial fibrillation on Xarelto, aortic valve stenosis aortic regurgitation, hypertension, dyslipidemia, moderate bilateral carotid stenosis, peripheral artery disease status post right iliac stenting, hypothyroidism, benign prostatic hypertrophy, melanoma resected from his back. Patient presented to the emergency department at [facility] after a week history of retrosternal chest pain associated with increased shortness of breath, he was seen recently in the office for what appears to be an upper respiratory tract infection associated with increased shortness of breath, had laboratory evaluation at that time that showed elevation of the C- reactive protein with normal ESR, blood cultures were negative because of the patient prior history of MRSA induced endocarditis, patient was not feeling well, he decided to go to the ER at 3:00 in the morning because of increased shortness of breath, he was seen in the emergency department he was found to have a pulmonary vascular congestion and he was found to have an elevated troponin at 29, patient did have a left heart catheterization that was done by Dr. Bobby on October 13 and that showed severe [place] CAD disease with 100% occlusion of the left main, 100% occlusion of the RCA, patent MAGAÑA to LAD and diagonal branch, patent SVG to the PDA, and occluded SVG to the obtuse marginal branch, at that time it was recommended for the patient to continue with medical management, he also was found to have aortic regurgitation 3-4+, patient was admitted to the hospital he was started on a heparin drip, and he was seen in consultation by cardiology as well as by pulmonary medicine it was recommended for the patient to go for left heart catheterization tomorrow morning. 10/29: Today, patient underwent LHC with Dr. Bobby and had 2 stent placement in the SVG to the PDA after what appears a perforation in the graft area with 80% stenosis, he had 2 stents placed in that area, and the patient is feeling a lot better after the procedure, he had an echocardiogram that showed evidence of ejection fraction of 35 to 40%, severe bilateral atrial enlargement, severe ao rtic regurgitation, mild aortic stenosis, as well as increased right sided ventricular pressure, patient did receive Lasix 40 mg IV push in the early hours in the morning because of significant shortness of breath, he is currently down to 2 L nasal cannula, patient continues to be somewhat hypotensive, he is not taking any LANDEN inhibitor at this time or any beta-jennifer due to his hypotension will reevaluate in the next 24 hours, will monitor the patient very closely, patient is being followed by pulmonary medicine as well as cardiology 10/30:. Patient is lying down in bed appears to be more short of breath today, he continues to have a low-grade temperature, he had a CT scan of the chest that showed bilateral upper lobe and right lower lobe infiltrate suggestive of pneumonia, he was started on Rocephin and Zithromax after he was seen by infectious disease, his procalcitonin level is slightly elevated, patient also had an ultrasound of the abdomen that showed prominence of the common bile duct, at 0.3 cm, we will monitor the patient very closely now patient may need to go for an ERCP as an outpatient, but will wait for now until the patient is feeling better, patient has been started back on his home medication, he continues to be somewhat weak, continue to be somewhat short of breath, we will continue to follow-up with the patient very closely. Blood cultures so far negative. 10/31: Patient is walking around appears to be more fatigued, more dyspneic on exertion, he has no orthopnea, he has no PND, he has no edema, he is worried about his current situation, I explained to the patient the current situation, and he is having ischemic cardiomyopathy, this is related to her recent non-ST elevation myocardial infarction as well as severe aortic regurgitation, we will continue to add medications for goal-directed medical therapy add SGLT2 at this point in time we will help the patient quite a bit, amlodipine was discontinued thankfully and patient was started on Farxiga 10 mg once every day per cardiology, also carvedilol 3.25 mg orally twice every day. 11/01: Patient is feeling a bit better today, his blood pressure is better less hypotensive, he seems to be tolerating treatment very well, his medication were adjusted to coincide with the goal-directed medical therapy GDMT. Will continue current treatment plan, monitor the patient in the hospital for another 1 or 2 days, hopefully he will be discharged home on Saturday. 11/02: Patient did not sleep very well yesterday, despite using melatonin 3 mg at bedtime, he will be switched to zolpidem 5 mg at bedtime and we will monitor the patient very closely, he is been getting his IV antibiotic, he is feeling better today, he is less short of breath, he is down to 1-1/2 L nasal cannula, will check his oxygenation tomorrow on room air with ambulation, hopefully he will be able to get out of the hospital tomorrow morning. 11/03: Patient sitting up in the chair in no apparent distress, he is walking around okay, he has minimal coughing, no phlegm production, he has no chest pain, minimal dyspnea on exertion, no edema, monitor showing atrial fibrillation with controlled rate, patient has a history of that, continue Xarelto 50 mg once every day, continue other cardiac medication, I will discharge the patient home today and follow-up with me as an outpatient next week. Discharge diagnoses: 1. Non-ST elevation myocardial infarction. 2. Acute systolic heart failure due to ischemic cardiomyopathy. 3. Bilateral upper lobes and right lower lobe pneumonia likely community- acquired pneumonia. 4. History of coronary artery disease with 4 vessel CABG with recent left heart catheterization October 14, 2023 that showed patent MAGAÑA to LAD diagonal branch, patent SVG to PDA, and total occlusion of SVG to the obtuse marginal branch. Continue treatment as in previous paragraph. 5. Paroxysmal atrial fibrillation 6. Hypertension hypertensive cardiovascular disease. 7. Hypothyroidism. 8. Benign prostatic hypertrophy. 9. Hyperlipidemia. 10. Peripheral artery disease status post iliac stent. 11. Elevated liver function test with prominence of the common bile duct, patient may need to be seen by GI for possible ERCP as an outpatient. Patient Condition at Discharge: Serious Plan - Discharge Summary Discharge Rx Participant: No New Discharge Prescriptions: No Action amLODIPine [Norvasc] 10 mg PO HS ramipriL 10 mg PO DAILY Glucosamine Sulfate 1,000 mg PO HS Rivaroxaban [Xarelto] 20 mg PO HS Atorvastatin [Lipitor] 80 mg PO HS Tamsulosin [Flomax] 0.4 mg PO DAILY Multivit,Calc,Min/FA/K1/Lycop [One-A-Day Men's Complete Tab] 1 tab PO DAILY Ascorbic Acid [Vitamin C] 1,000 mg PO DAILY Acetaminophen [Tylenol Extra Strength] 500 mg PO HS Isosorbide Mononitrate [Isosorbide Mononitrate ER] 60 mg PO DAILY Doxycycline [Vibramycin] 100 mg PO BID Albuterol Sulfate [Albuterol Sulfate Hfa] 1 - 2 puff INHALATION RT-QID PRN PRN Reason: Shortness Of Breath Levothyroxine Sodium [Synthroid] 175 mcg PO DAILY Discharge Medication List Acetaminophen [Tylenol Extra Strength] 500 mg PO HS 10/24/22 [History] Ascorbic Acid [Vitamin C] 1,000 mg PO DAILY 10/24/22 [History] Atorvastatin [Lipitor] 80 mg PO HS 10/24/22 [History] Glucosamine Sulfate 1,000 mg PO HS 10/24/22 [History] Multivit,Calc,Min/FA/K1/Lycop [One-A-Day Men's Complete Tab] 1 tab PO DAILY 10/24/22 [History] Rivaroxaban [Xarelto] 20 mg PO HS 10/24/22 [History] Tamsulosin [Flomax] 0.4 mg PO DAILY 10/24/22 [History] amLODIPine [Norvasc] 10 mg PO HS 10/24/22 [History] ramipriL 10 mg PO DAILY 10/24/22 [History] Isosorbide Mononitrate [Isosorbide Mononitrate ER] 60 mg PO DAILY 10/10/23 [History] Albuterol Sulfate [Albuterol Sulfate Hfa] 1 - 2 puff INHALATION RT-QID PRN 10/29/23 [History] Doxycycline [Vibramycin] 100 mg PO BID 10/29/23 [History] Levothyroxine Sodium [Synthroid] 175 mcg PO DAILY 10/29/23 [History] Follow up Appointment(s)/Referral(s): Buddy Salas MD [Primary Care Provider] - 1-2 days [facility] [NON-STAFF] -
--- NOTE | 2023-11-05 13:30 | P.PN ---
Subjective Progress Note Date: 11/04/23 Principal diagnosis: Reason for follow-up is fever and pneumonia Patient is a 72-year-old male with a past medical history significant for atrial fibrillation hypertension hyperlipidemia prostate disorder did have a history of MRSA bacteremia November 2022 presented to hospital with increasing shortness of breath chest pain has been diagnosed with an NH in this patient who status post PCI to SVG to PDA did have a fever found at this consultation. On today's evaluation that is 11/04/2023,the patient remains to be afebrile, patient is on room air not requiring supplemental oxygen and denies any shortness of breath no chest pain the patient cough is decreased intensity and bring up any sputum.Patient denies having any nausea or vomiting, no abdominal pain and no diarrhea, mention feeling better wants to go home. Patient white count is 6.5, creatinine 0.62 sputum culture has been negative blood culture negative Objective - Vital Signs Vital signs: Vital Signs Temp 97.9 F 11/04/23 09:20 Pulse 51 L 11/04/23 09:20 Resp 16 11/04/23 09:20 BP 121/58 11/04/23 09:20 Pulse Ox 96 11/04/23 09:20 FiO2 Intake & Output 11/03/23 11/04/23 11/04/23 18:59 06:59 18:59 Intake Total 2244 20 370 Balance 2244 20 370 Weight 91.7 kg 91.6 kg Intake: IV 20 10 Invasive Line 3 20 10 Oral 2244 360 Other: Voiding Method Toilet Toilet Urinal Urinal # Voids 1 1 1 - Exam GENERAL DESCRIPTION: An elderly male lying in bed in no distress RESPIRATORY SYSTEM: Unlabored breathing , decreased breath sounds at bases HEART: S1 S2 regular rate and rhythm , ABDOMEN: Soft , no tenderness EXTREMITIES: No edema feet - Labs CBC & Chem 7: 11/04/23 06:42 11/04/23 06:42 Labs: Abnormal Lab Results - Last 24 Hours (Table) 11/04/23 11/04/23 Range/Units 06:42 06:42 RBC 3.71 L (4.30-5.90) m/uL Hgb 11.1 L (13.0-17.5) gm/dL Hct 33.4 L (39.0-53.0) % Sodium 134 L (137-145) mmol/L Carbon Dioxide 21 L (22-30) mmol/L BUN 26 H (9-20) mg/dL Creatinine 0.62 L (0.66-1.25) mg/dL AST 75 H (17-59) U/L ALT 104 H (4-49) U/L Total Protein 5.6 L (6.3-8.2) g/dL Albumin 2.9 L (3.5-5.0) g/dL Microbiology - Last 24 Hours (Table) 11/02/23 09:05 Gram Stain - Final Sputum Sputum Culture - Final 10/31/23 06:57 Blood Culture - Preliminary Blood 10/29/23 04:05 Blood Culture - Final Blood 10/29/23 03:50 Blood Culture - Final Blood Assessment and Plan (1) Fever Status: Acute Code(s): R50.9 - FEVER, UNSPECIFIED SNOMED Code(s): 000212264 (2) Pneumonia Status: Acute Code(s): J18.9 - PNEUMONIA, UNSPECIFIED ORGANISM SNOMED Code(s): 133743545 (3) Elevated LFTs Status: Acute Code(s): R79.89 - OTHER SPECIFIED ABNORMAL FINDINGS OF BLOOD CHEMISTRY SNOMED Code(s): 553658814 Plan: 1patient with episode of fever without clear etiology in this patient apparently has been dealing with a fever for more than a week in the outpatient setting initially did have some respiratory symptoms concerning for possible pneumonia not being admitted to the hospital for NSTEMI, status postcardiac cath and PCI 2-blood cultures has been negative so far, procalcitonin is mildly elevated 3--patient did have elevated liver enzymes hepatitis panel is negative ultrasound suspicious for prominence of the bile duct recommending ERCP, 4-patient did have a CT of the chest suspicious for right lower lobe pneumonia 5-patient did have resolution of his fever white count normal culture has been negative has received a 5-day course of IV Rocephin should be enough for underlying community-acquired pneumonia discussed with the patient and the family advise if any recurrence of fever to let me know right away Dictation was produced using [employer] software. please excuse any grammatical, word or spelling errors. Time with Patient: Less than 30
[2023-11-06 04:32] LABS: Mycoplasma IgG Antibody (EIA) 1.01 INDEX (<=0.90); Mycoplasma IgM Antibody 0.54 INDEX (<=0.90)
== END 2023-11-04 15:34 | disposition home or self-care (01) | DRG 321 ==
LOC: EC 03:43 → 3SCARD 06:02
PROVIDERS: ADMIT Internal Medicine; ATTEND Internal Medicine
PROC: B2181ZZ Fluoroscopy of Left Internal Mammary Bypass Graft using Low Osmolar Contrast (ICD-10-PCS; 2023-10-30)
PROC: 027035Z Dilation of Coronary Artery, One Artery with Two Drug-eluting Intraluminal Devices, Percutaneous Approach (ICD-10-PCS; principal; 2023-10-30 08:30)
PROC: B2121ZZ Fluoroscopy of Single Coronary Artery Bypass Graft using Low Osmolar Contrast (ICD-10-PCS; 2023-10-30 08:30)
DX: I21.4 Non-ST elevation (NSTEMI) myocardial infarction (principal); I50.21 Acute systolic (congestive) heart failure; J18.9 Pneumonia, unspecified organism; I25.810 Atherosclerosis of coronary artery bypass graft(s) without angina pectoris; E03.9 Hypothyroidism, unspecified; E78.5 Hyperlipidemia, unspecified; F41.9 Anxiety disorder, unspecified; G47.00 Insomnia, unspecified; I11.0 Hypertensive heart disease with heart failure; I25.10 Atherosclerotic heart disease of native coronary artery without angina pectoris; I48.0 Paroxysmal atrial fibrillation; R09.02 Hypoxemia; I65.29 Occlusion and stenosis of unspecified carotid artery; N40.0 Benign prostatic hyperplasia without lower urinary tract symptoms; I73.9 Peripheral vascular disease, unspecified; I25.5 Ischemic cardiomyopathy; I35.2 Nonrheumatic aortic (valve) stenosis with insufficiency; I44.7 Left bundle-branch block, unspecified; I25.2 Old myocardial infarction; Z79.01 Long term (current) use of anticoagulants; Z79.02 Long term (current) use of antithrombotics/antiplatelets; Z79.82 Long term (current) use of aspirin; Z79.890 Hormone replacement therapy; Z79.899 Other long term (current) drug therapy; Z85.820 Personal history of malignant melanoma of skin; Z86.14 Personal history of Methicillin resistant Staphylococcus aureus infection; Z87.442 Personal history of urinary calculi; Z87.891 Personal history of nicotine dependence; Z88.8 Allergy status to other drugs, medicaments and biological substances; Z88.1 Allergy status to other antibiotic agents
CPT/HCPCS: 36415; 71046; 71260; 76705; 80053; 80061; 80074; 83605; 83735; 83880; 84145; 84484; 85025; 85610; 85652; 85730; 86140; 86738; 87040; 87070; 87205; 87449; 87636; 93005; 93306; 93459; 94640; 94760; 96365; 96366; 96375; 99291

== ENCOUNTER 2023-11-05 00:28 | Emergency (ER) | payer MEDICARE, OTHER ==
[2023-11-05 00:33] VITALS: TEMP 98
--- NOTE | 2023-11-05 00:40 | ED ---
Chest Pain HPI - General Chief Complaint: Chest Pain Stated Complaint: Chest Pain, Indigestion Time Seen by Provider: 11/05/23 00:37 Source: patient, RN notes reviewed, old records reviewed Mode of arrival: wheelchair Limitations: no limitations - History of Present Illness Initial Comments: This is a 72-year-old male with history of stents coming in for chest pain today. Complicated recent medical history with inpatient evaluation stent placed. Patient presents with chest pain today just discharged this morning, patient states symptoms feel like reflux MD Complaint: chest pain - Related Data Home Medications Medication Instructions Recorded Confirmed Acetaminophen [Tylenol Extra 500 mg PO HS 10/24/22 10/29/23 Strength] Ascorbic Acid [Vitamin C] 1,000 mg PO DAILY 10/24/22 10/29/23 Atorvastatin [Lipitor] 80 mg PO HS 10/24/22 10/29/23 Glucosamine Sulfate 1,000 mg PO HS 10/24/22 10/29/23 Multivit,Calc,Min/FA/K1/Lycop 1 tab PO DAILY 10/24/22 10/29/23 [One-A-Day Men's Complete Tab] Tamsulosin [Flomax] 0.4 mg PO DAILY 10/24/22 10/29/23 Albuterol Sulfate [Albuterol 1 - 2 puff INHALATION RT-QID PRN 10/29/23 10/29/23 Sulfate Hfa] Levothyroxine Sodium [Synthroid] 175 mcg PO DAILY 10/29/23 10/29/23 Previous Rx's Medication Instructions Recorded Aspirin 81 mg PO DAILY tab 11/04/23 Benzonatate [Tessalon Perles] 200 mg PO TID #21 cap 11/04/23 Clopidogrel [Plavix] 75 mg PO DAILY #30 tab 11/04/23 Dapagliflozin Propanediol [Farxiga] 10 mg PO DAILY #30 tab 11/04/23 Isosorbide Mononitrate ER [Imdur] 30 mg PO DAILY #30 tab 11/04/23 Nitroglycerin Sl Tabs [Nitrostat] 0.4 mg SUBLINGUAL Q5M PRN #15 tab 11/04/23 Rivaroxaban [Xarelto] 15 mg PO W/SUPPER #30 tab 11/04/23 Spironolactone [Aldactone] 25 mg PO DAILY #30 tab 11/04/23 carvediloL [Coreg] 3.125 mg PO BID-W/MEALS #60 tab 11/04/23 lisinopriL [Zestril] 10 mg PO DAILY #30 tab 11/04/23 Allergies Allergy/AdvReac Type Severity Reaction Status Date / Time ciprofloxacin [From Cipro] Allergy TROUBLE Verified 10/29/23 08:17 SWALLOWING Review of Systems ROS Statement: Those systems with pertinent positive or pertinent negative responses have been documented in the HPI. ROS Other: All systems not noted in ROS Statement are negative. EKG Findings - EKG Comments: EKG Findings:: EKG is sinus 64 LA 227 QRS 121 QTc 440 - EKG Results: EKG: interpreted by [facility] Past Medical History Past Medical History: Atrial Fibrillation, Cancer, Hyperlipidemia, Hypertension, Myocardial Infarction ([place]), Pneumonia, Prostate Disorder, Thyroid Disorder, Vascular Disorder Additional Past Medical History / Comment(s): MELANOMA ON BACK, recent stress test, echo, hx. kidney stones, spinal stenosis lower back History of Any Multi-Drug Resistant Organisms: MRSA Date of last positivie culture/infection: 11/18/22 MDRO Source:: blood Past Surgical History: Appendectomy, Coronary Bypass/CABG, Heart Catheterization, Heart Catheterization With Stent, Hernia Repair, Orthopedic Surgery, Tonsillectomy Additional Past Surgical History / Comment(s): QUAD BYPASS-2010 ,COLONOSCOPY X 3 ,MELANOMA REMOVED FROM BACK. ORIF RT WRIST ,TITANIUM PLATE LT SHOULDER, stento lower right iliac artery. NUMEROUS HERNIA REPAIRS ,DALIA Past Anesthesia/Blood Transfusion Reactions: No Reported Reaction Past Psychological History: Anxiety Smoking Status: Former smoker Past Alcohol Use History: None Reported Past Drug Use History: None Reported - Past Family History Mother Family Medical History: No Reported History General Exam Limitations: no limitations General appearance: alert, in no apparent distress, anxious Head exam: Present: atraumatic, normocephalic, normal inspection Eye exam: Present: normal appearance, PERRL, EOMI. Absent: scleral icterus, conjunctival injection, periorbital swelling ENT exam: Present: normal exam, mucous membranes moist Neck exam: Present: normal inspection. Absent: tenderness, meningismus, lymphadenopathy Respiratory exam: Present: normal lung sounds bilaterally. Absent: respiratory distress, wheezes, rales, rhonchi, stridor Cardiovascular Exam: Present: regular rate, normal rhythm, normal heart sounds. Absent: systolic murmur, diastolic murmur, rubs, gallop, clicks GI/Abdominal exam: Present: soft, normal bowel sounds. Absent: distended, tenderness, guarding, rebound, rigid Extremities exam: Present: normal inspection, full ROM, normal capillary refill. Absent: tenderness, pedal edema, joint swelling, calf tenderness Back exam: Present: normal inspection Neurological exam: Present: alert, oriented X3, CN II-XII intact Psychiatric exam: Present: normal affect, normal mood Skin exam: Present: warm, dry, intact, normal color. Absent: rash Course Vital Signs 11/05/23 11/05/23 11/05/23 00:30 01:02 02:56 Temperature 98 F Pulse Rate 59 L 56 L 55 L Respiratory 20 18 16 Rate Blood Pressure 137/69 135/66 112/63 O2 Sat by Pulse 99 95 95 Oximetry 11/05/23 03:57 Temperature Pulse Rate 59 L Respiratory 18 Rate Blood Pressure 111/63 O2 Sat by Pulse Oximetry - Reevaluation(s) Reevaluation #1: 11/05/23 00:40 Medical records reviewed Reevaluation #2: 11/05/23 03:50 Patient symptoms are improving Reevaluation #3: 11/05/23 03:50 Patient informed of results questions answered Reevaluation #4: Was pt. sent in by a medical professional or institution (, PA, FIBERGLASS CONTAINER WINDING OPERATOR, urgent care, hospital, or skilled nursing...) When possible be specific @ -no Did you speak to anyone other than the patient for history (EMS, parent, family, police, friend...)? What history was obtained from this source @ -no Did you review nursing and triage notes (agree or disagree)? Why? @ -agree Are old charts reviewed (outside hosp., previous admission, EMS record, old EKG, old radiological studies, urgent care reports/EKG's, skilled nursing records)? Report findings @ -yes Differential Diagnosis (chest pain, altered mental status, abdominal pain women, abdominal pain men, vaginal bleeding, weakness, fever, dyspnea, syncope, headache, dizziness, GI bleed, back pain, seizure, CVA, palpatations, mental health, musculoskeletal)? @ -prior EKG interpreted by me (3pts min.). @ -yes X-rays interpreted by me (1pt min.). @ -yes negative for acute disease CT interpreted by me (1pt min.). @ -no U/S interpreted by me (1pt. min.). @ -no What testing was considered but not performed or refused? (CT, X-rays, U/S, labs)? Why? @ -none What meds were considered but not given or refused? Why? @ -none Did you discuss the management of the patient with other professionals (professionals i.e. Dr., PA, FIBERGLASS CONTAINER WINDING OPERATOR, lab, RT, psych nurse, group social worker, hotel office manager, teacher, defence force senior officer, dependency case manager)? Give summary @ -no Was smoking cessation discussed for >3mins.? @ -no Was critical care preformed (if so, how long)? @ -no Were there social determinants of health that impacted care today? How? (Homelessness, low income, unemployed, alcoholism, drug addiction, transportation, low edu. Level, literacy, decrease access to med. care, prison, rehab)? @ -none Was there de-escalation of care discussed even if they declined (Discuss DNR or withdrawal of care, Hospice)? DNR status @ -no What co-morbidities impacted this encounter? (DM, HTN, Smoking, COPD, CAD, Cancer, CVA, ARF, Chemo, Hep., AIDS, mental health diagnosis, sleep apnea, morbid obesity)? @ -none Was patient admitted / discharged? Hospital course, mention meds given and route, prescriptions, significant lab abnormalities, going to OR and other pertinent info. @ - 72 male coming in for evaluation of persistent chest pain here in the ER troponin is diminishing here in the ER patient can be discharged home Discharge Undiagnosed new problem with uncertain prognosis? @ -no Drug Therapy requiring intensive monitoring for toxicity (Heparin, Nitro, Insulin, Cardizem)? @ -no Were any procedures done? @ -no Diagnosis/symptom? @ -Chest pain Acute, or Chronic, or Acute on Chronic? @ -Acute Uncomplicated (without systemic symptoms) or Complicated (systemic symptoms)? @ -Complicated Side effects of treatment? @ -no Exacerbation, Progression, or Severe Exacerbation? @ -exacerbation Poses a threat to life or bodily function? How? (Chest pain, [place], [place], pneumonia, PE, COPD, DKA, ARF, appy, cholecystitis, CVA, Diverticulitis, Homicidal, Suicidal, threat to staff... and all critical care pts) @ -yes age cp Reevaluation #5: Differential Chest Pain: Stable Angina, Unstable Angina, STEMI, NSTEMI Aortic Dissection, Pneumothorax, Musculoskeletal, Esophageal Spasm GERD, Cholecystitis, Pancreatitis, Zoster, this is not meant to be an all-inclusive list. Chest Pain MDM - MDM 72 male coming in for evaluation of persistent chest pain here in the ER troponin is diminishing here in the ER patient can be discharged home Disposition Clinical Impression: Atypical chest pain, Chest pain Disposition: HOME SELF-CARE Condition: Fair Instructions (If sedation given, give patient instructions): Chest Pain (ED) Is patient prescribed a controlled substance at d/c from ED?: No Referrals: Buddy Salas MD [Primary Care Provider] - 1-2 days Time of Disposition: 03:50
[2023-11-05 00:56] LABS: Basophils # (A) 0.1 k/uL (0-0.2); Basophils % (A) 1 %; Eosinophils # (A) 0.4 k/uL (0-0.7); Eosinophils % (A) 4 %; HCT 36.7 % (39.0-53.0); HGB 12.1 gm/dL (13.0-17.5); Lymphocytes # (A) 1.6 k/uL (1.0-4.8); Lymphocytes % (A) 17 %; MCH 29.8 pg (25.0-35.0); MCV 90.4 fL (80.0-100.0); Mean Platelet Volume 7.8; Monocytes # (A) 0.4 k/uL (0-1.0); Monocytes % (A) 5 %; Neutrophils # (A) 6.9 k/uL (1.3-7.7); Neutrophils % (A) 73 %; Platelet Count 366 k/uL (150-450); RBC 4.06 m/uL (4.30-5.90); RDW 12.8 % (11.5-15.5); WBC 9.4 k/uL (3.8-10.6)
--- NOTE | 2023-11-05 01:05 | XR ---
EXAMINATION TYPE: XR chest 2V DATE OF EXAM: 11/05/2023 COMPARISON: Prior chest x-ray November 03, 2023 HISTORY: Chest pain TECHNIQUE: Frontal and lateral views of the chest are obtained. FINDINGS: There) increased opacities centrally bilaterally with small tiny bilateral pleural effusio ns. And sternal wires redemonstrated. The cardiac silhouette size remains within normal limits. Surg ical change left humeral head is redemonstrated . IMPRESSION: Persistent bilateral central edema and/or acute infiltrates and small to tiny bilateral pleural effusions.
[2023-11-05] MEDS: PANTOPRAZOLE 40 MG/10 ML VIAL IVP STA (01:40)
[2023-11-05] MEDS: MAG HYDROX/AL HYDROX/SIMETH 30 ML, HYOSCYAMINE ELIXIR 10 ML PO STA (01:40)
[2023-11-05] MEDS: SODIUM CHLORIDE 0.9% 500 ML 500 ML IV STA (01:41)
[2023-11-05 01:54] LABS: INR 1.5 (<1.2); Partial Thromboplastin Time 39.9 sec (22.0-30.0); Prothrombin Time 15.8 sec (10.0-12.5)
[2023-11-05 01:57] LABS: ALT 128 U/L (4-49); AST 124 U/L (17-59); African American GFR (CKD) >90 (>60 ml/min/1.73 sqM); Albumin 3.5 g/dL (3.5-5.0); Alkaline Phosphatase 114 U/L (38-126); Anion Gap 8 mmol/L; Blood Urea Nitrogen 26 mg/dL (9-20); Calcium 9.1 mg/dL (8.4-10.2); Carbon Dioxide 19 mmol/L (22-30); Chloride 107 mmol/L (98-107); Glucose 99 mg/dL (74-99); Lipase 255 U/L (23-300); Magnesium 2.4 mg/dL (1.6-2.3); Non-African American GFR(CKD) 88 (>60 ml/min/1.73 sqM); Potassium 4.7 mmol/L (3.5-5.1); Sodium 134 mmol/L (137-145); Total Bilirubin 0.8 mg/dL (0.2-1.3); Total Protein 6.5 g/dL (6.3-8.2)
[2023-11-05 02:06] LABS: NT-Pro-B-Type Natriuretic Pept 7270 pg/mL
[2023-11-05 03:59] VITALS: BP 111/63; PULSE 59; RESP 18
[2023-11-05] MEDS: diazePAM 5 MG TAB PO STA (03:59)
== END 2023-11-05 04:08 | disposition home or self-care (01) ==
LOC: EC 00:28
DX: R07.89 Other chest pain (principal); Z88.1 Allergy status to other antibiotic agents; Z87.891 Personal history of nicotine dependence
CPT/HCPCS: 99285 ×2; 96374 ×2; 36415; 93005; 83880; 80053; 83690; 83735; 84484; 85025; 85610; 85730; 71046; J2470